=== PATIENT | female | born 1950 | race Caucasian/White ===

== ENCOUNTER → 2017-08-18 14:16 | Outpatient (POV) | payer MEDICARE, SELFPAY ==
[2017-08-18 14:45] VITALS: BP 165/68; PULSE 101; RESP 20; TEMP 36.2; BMI 34.2
[2017-08-18 14:55] VITALS: BP 144/86; PULSE 74; RESP 20; TEMP 36.5; O2SAT 95; BMI 31.7
--- NOTE | 2017-08-18 14:58 | HMH.PAINSOAP ---
[facility] Pain Management SOAP Note Subjective:: This patient is a pleasant 66-year-old white female who we are treating for low back pain with lumbar radiculopathy symptoms. She is currently on [place] 10 mg 4 times a day. She is doing well with her medications. It reduces her pain by at least 50-60%. Her Jp and urine drug screen are all appropriate. Kaspar #[id number]. She is currently being treated for lymphoma at the cancer treatment center in [place]. She is under current treatment with chemotherapy agents. She goes down there every 21 days. We will refill her [place] 10 mg 1 tablet 4 times a day and give HER-2 months worth of prescriptions. Objective:: Alert and oriented ?3 in no acute distress. A normal gait. Motor strength of the lower extremities is 4 out of 5. There is no gross sensory deficit. 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 Lymphoma currently undergoing treatment. Plan:: We will refill her [place] 10 mg 1 tablet 4 times a day. We will give her 2 months worth of prescriptions. We will follow about injections after she completes her treatment regimen for her lymphoma and regains her strength.
--- NOTE | 2017-08-18 15:01 | P.CONS_ITS ---
[facility] Pain Management SOAP Note Subjective:: This patient is a pleasant 66-year-old white female who we are treating for low back pain with lumbar radiculopathy symptoms. She is currently on [place] 10 mg 4 times a day. She is doing well with her medications. It reduces her pain by at least 50-60%. Her Jp and urine drug screen are all appropriate. Kaspar #[id number]. She is currently being treated for lymphoma at the cancer treatment center in [place]. She is under current treatment with chemotherapy agents. She goes down there every 21 days. We will refill her [place] 10 mg 1 tablet 4 times a day and give HER-2 months worth of prescriptions. Objective:: Alert and oriented ?3 in no acute distress. A normal gait. Motor strength of the lower extremities is 4 out of 5. There is no gross sensory deficit. 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 Lymphoma currently undergoing treatment. Plan:: We will refill her [place] 10 mg 1 tablet 4 times a day. We will give her 2 months worth of prescriptions. We will follow about injections after she completes her treatment regimen for her lymphoma and regains her strength.
[2017-08-18 15:22] LABS: Amphetamine/Metha Screen,Urine Negative ng/mL (<1000); Barbiturates Screen,Urine Positive ng/mL (<200); Benzodiazepines Screen,Urine Negative ng/mL (200); Cannabinoid Screen,Urine Negative ng/mL (<50); Cocaine Screen,Urine Negative ng/g (<300); Methadone Screen,Urine Negative ng/mL (<300); Opiate Screen,Urine Positive ng/mL (<300); Phencyclidine Screen,Urine Negative ng/mL (<25)
[2017-08-30 14:11] LABS: Codeine Negative (Cutoff=100); Hydrocodone Positive (.); Hydromorphone Positive (.); Morphine Negative (Cutoff=100)
[2017-08-30 19:08] LABS: Opiates Positive (.)
== END ==
PROVIDERS: Family Provider Nurse Practitioner Family; PCP Nurse Practitioner Family; Visit Provider Anesthesiology
DX: M51.16 Intervertebral disc disorders with radiculopathy, lumbar region (principal); Z79.899 Other long term (current) drug therapy
CPT/HCPCS: 80305; 80361; 99212; G0480

== ENCOUNTER 2017-08-20 21:36 | Inpatient (IN) | payer MEDICARE, SELFPAY ==
[2017-08-20 21:39] VITALS: BMI 35.3
[2017-08-20 21:41] VITALS: BP 134/67; PULSE 108; RESP 20; TEMP 37.6; O2SAT 80; BMI 35.3
--- NOTE | 2017-08-20 21:44 | XR_ITS ---
XR chest portable HISTORY: ITS.REASON: SOA, COUGH ORDERING PHYSICIAN: Daniel Tello MD PATIENT AGE: 67 years COMPARISON: None available FINDINGS: Right hemidiaphragm is elevated. Right subclavian MediPort catheter is in place with the tip in the region of SVC. There are atelectatic changes in the right lung base. Left lung is clear. IMPRESSION: Elevated right hemidiaphragm slightly greater compared to 10/23/2016 with right basilar atelectasis
[2017-08-20 22:21] LABS: Basophils % 0.8 % (0.1-2.0); Eosinophils % 1.5 % (0.1-12.0); Hematocrit 30.2 % (37.0-47.0); Hemoglobin 10.2 g/dL (12.2-16.2); Lymphocytes # 0.1 K/mm3 (0.7-4.5); Lymphocytes % 4.4 K/mm3 (10-50); Mean Corpuscular HGB Conc 33.7 g/dL (31.8-35.4); Mean Corpuscular Hemoglobin 33.8 pg (27.0-31.2); Mean Corpuscular Volume 100.5 fl (81-99); Mean Platelet Volume 8.1 fl (7.4-10.4); Monocytes % 0.6 % (1.7-9.3); Neutrophils # 2.7 K/mm3 (1.8-7.8); Neutrophils % 92.8 % (37.0-80.0); Red Blood Count 3.01 M/mm3 (4.20-5.40); Red Cell Distribution Width 18.7 % (11.5-17.5); White Blood Count 2.9 K/mm3 (4.8-10.8)
[2017-08-20 22:24] LABS: Platelet Count 48 K/mm3 (142-424)
[2017-08-20 22:25] LABS: MANUAL DIFFERENTIAL MANUAL DIFFERENTIAL (MANUAL DIFF)
[2017-08-20 22:37] VITALS: BP 145/50; PULSE 95; RESP 20; O2SAT 89
[2017-08-20 22:37] LABS: Lactic Acid 0.7 mmol/L (0.4-2.0)
--- NOTE | 2017-08-20 22:45 | HMH.EDSOB ---
ED Disposition Clinical Impression: Thrombocytopenia Community acquired pneumonia Qualifiers: Laterality: right Lung location: upper lobe of lung Qualified Code(s): J18.1 - Lobar pneumonia, unspecified organism Disposition: Admitted As Inpatient Condition on Discharge: Good Referrals: Rika Enciso APRN [Primary Care Provider] - - Critical Care Critical Care Time: No Attestation: On 08/20/17, the high probability of a clinically significant, sudden or life threatening deterioration of the following system(s) required my full and direct attention, intervention and personal management. The time I documented below is in addition to time spent performing reported procedures but includes the following listed in this critical care notation. Medical Decision Making Vital Signs: 08/20/17 21:41 08/20/17 22:37 08/20/17 23:02 Temperature 99.6 F Temperature Source Oral Pulse Rate [Right Radial] 108 H 95 H 95 H Respiratory Rate 20 20 20 Blood Pressure [Right Arm] 134/67 145/50 139/76 Blood Pressure Mean [Right Arm] 89 81 97 Blood Pressure Source [Right Arm] Automatic Cuff Automatic Cuff Automatic Cuff Blood Pressure Position [Right Arm] Supine Sitting Sitting 02 Sat by Pulse Oximetry 80 L 89 L 95 Oxygen Delivery Method Room Air Nasal Cannula Nasal Cannula Oxygen Flow Rate (LPM) 2 2 08/20/17 23:47 Temperature 98.6 F Temperature Source Oral Pulse Rate [Right Radial] 92 H Respiratory Rate 22 Blood Pressure [Right Arm] 129/68 Blood Pressure Mean [Right Arm] 88 Blood Pressure Source [Right Arm] Automatic Cuff Blood Pressure Position [Right Arm] Supine 02 Sat by Pulse Oximetry 94 L Oxygen Delivery Method Nasal Cannula Oxygen Flow Rate (LPM) 3 - Lab Data Lab results reviewed: Yes: I reviewed the patient's lab results. Lab Results 08/20/17 22:10: WBC 2.9 L, RBC 3.01 L, Hgb 10.2 L, Hct 30.2 L, MCV 100.5 H, MCH 33.8 H, MCHC 33.7, RDW 18.7 H, Plt Count 48 L*, MPV 8.1, Neut % (Auto) 92.8 H, Lymph % (Auto) 4.4 L, [place] % (Auto) 0.6 L, Eos % (Auto) 1.5, Baso % (Auto) 0.8, Neut # (Auto) 2.7, Lymph # (Auto) 0.1 L, [place] # (Auto) 0.0 L, Eos # (Auto) 0.0, Baso # (Auto) 0.0, Total Counted 50, Neutrophils % (Manual) 94 H, Lymphocytes % (Manual) 4 L, Basophils % (Manual) 2.0 H, Platelet Estimate Marked decrease, Hypochromasia 1+, Poikilocytosis 1+, Anisocytosis 1+ 08/20/17 22:10: Sodium 138, Potassium 4.2, Chloride 101, Carbon Dioxide 36 H, Anion Gap 5.2, BUN 16, Creatinine 0.66, Estimated Creat Clear 81, Estimated GFR 89, Est GFR ( Amer) 108, Glucose 174 H, Calcium 8.5, Total Bilirubin 0.3, AST 24, ALT 44, Alkaline Phosphatase 101, Total Creatine Kinase 86, CK-MB (CK-2) < 0.5, CK-MB (CK-2) Rel Index 0.6, Troponin I < 0.02, Total Protein 5.7 L, Albumin 2.9 L, Globulin 2.8, Albumin/Globulin Ratio 1.0 L 08/20/17 22:10: Lactic Acid 0.7 08/20/17 22:50: Influenza Type A Ag Negative, Influenza Type B Ag Negative Result diagrams: 08/20/17 22:10 08/20/17 22:10 Orders (Tests/Meds): ED MEDICATIONS Generic Name Dose Route Start Last Admin Trade Name Freq PRN Reason Stop Dose Admin Azithromycin 500 mg/ Sodium 250 mls @ 250 mls/hr 08/21/17 00:45 Chloride IV 09/20/17 00:44 Q24H KIMBERLEE Protocol Sodium Chloride 10 ml 08/20/17 23:42 08/20/17 23:44 Rad-Saline Flush 10ml Syringe IV 09/19/17 23:41 10 ml NEEDED PRN Administration Maintain IV Site Discontinued Medications Generic Name Dose Route Start Last Admin Trade Name Freq PRN Reason Stop Dose Admin Sodium Chloride 1,000 mls @ 999 mls/hr 08/20/17 22:15 08/20/17 22:57 Sod Chloride 0.9% 1000ml Bag IV 08/20/17 23:15 999 mls/hr .Q1H1M KIMBERLEE Administration Iopamidol 75 ml 08/20/17 23:42 08/20/17 23:44 [id number]; 75ml Vial IV 08/20/17 23:43 75 ml ONCE ONE Administration Sodium Chloride 50 ml 08/20/17 23:42 08/20/17 23:44 Rad-Ns 50ml Vial IV 08/20/17 23:43 50 ml ONCE ONE Administration ORDERS
[2017-08-20 22:46] LABS: Alanine Aminotransferase 44 U/L (12-78); Albumin Level 2.9 gm/dL (3.4-5.0); Alkaline Phosphatase 101 U/L (46-116); Anion Gap 5.2 mEq/L (5-15); Aspartate Amino Transferase 24 U/L (15-37); Bilirubin,Total 0.3 mg/dL (0.2-1.0); Blood Urea Nitrogen 16 mg/dL (7-18); Calcium 8.5 mg/dL (8.5-10.1); Carbon Dioxide 36 mmol/L (21.0-32.0); Chloride 101 mmol/L (98-107); Creatine Kinase 86 U/L (26-192); Creatinine Clearance Estimated 81 mL/min (0-300); Creatinine,Serum 0.66 mg/dL (0.55-1.02); Estimated Glomerular Filt Rate 89 ml/min (>60); GFR (African American) 108 ML/MIN (>60); Globulin 2.8 gm/dl (1.3-3.2); Glucose 174 mg/dL (74-106); Potassium 4.2 mmoL/L (3.5-5.1); Sodium 138 mmol/L (136-145); Total Protein,Serum 5.7 gm/dL (6.4-8.2); Troponin I < 0.02 ng/ml (0.00-0.06)
[2017-08-20 22:47] LABS: Anisocytosis 1+; Lymphocytes % 4 % (10-50); Neutrophils % 94 % (42-76); Platelet Estimate Marked Decrease; Total Cells Counted 50
[2017-08-20 22:48] LABS: Hypochromasia 1+; Poikilocytosis 1+
[2017-08-20 22:49] LABS: CKMB Relative Index 0.6 U/L (0-4.0); Creatine Kinase MB < 0.5 mg/ml (0.0-3.6)
--- NOTE | 2017-08-20 22:59 | CT_ITS ---
CT angio chest HISTORY: Shortness of breath, shortness of air ITS.REASON: SOA ORDERING PHYSICIAN: Daniel Tello MD PATIENT AGE: 67 years TECHNIQUE: Axial images obtained following the administration of 75 mL of Isovue 370 . Sagittal, and coronal reformatted images are also generated and reviewed. COMPARISON: 03/04/2017 FINDINGS: There is generalized motion artifact which does somewhat obscure fine detail PULMONARY ARTERIES:No pulmonary embolus evident. AORTA:No acute finding. No thoracic aortic aneurysm or dissection evident LUNGS:Atelectasis lower right middle lobe adjacent to the elevated hemidiaphragm. Patchy centrilobular opacities in the central and lateral aspect of the right upper lobe. Atelectasis or infiltrate in the left lower lobe and lingula. PLEURAL SPACES:No significant effusion. No evidence of pneumothorax. HEART:Unremarkable. Normal heart size. No significant pericardial effusion. MEDIASTINAL AND HILAR STRUCTURES:Elevated right hemidiaphragm with right basilar atelectasis. Somewhat worse on today's study than when compared to the previous exam. Mediport catheter is present via right subclavian approach BONY STRUCTURES:No acute bony abnormalities apparent LYMPH NODES:No enlarged lymph nodes evident UPPER ABDOMEN:Diffuse hepatic steatosis IMPRESSION: 1. No evidence of pulmonary embolus or aortic aneurysm. 2. Elevated right hemidiaphragm with right basilar atelectasis. This is slightly worse when compared to the previous exam. 3. Scattered airspace disease which may be due to atypical infectious process/pneumonia along with atelectatic changes
[2017-08-20 23:02] VITALS: BP 139/76; PULSE 95; RESP 20; O2SAT 95
--- NOTE | 2017-08-20 23:28 | PC.NURSE ---
PT BACK FROM CT AT THIS TIME
[2017-08-20 23:47] VITALS: BP 129/68; PULSE 92; RESP 22; TEMP 37; O2SAT 94
[2017-08-21] VITALS (14 sets, daily range): BP systolic 123–166; BP diastolic 56–77; PULSE 85–104; RESP 18–31; TEMP 36.1–37.7; O2SAT 82–94; BMI 34.2
--- NOTE | 2017-08-21 00:05 | PC.NURSE ---
ON PHONE WITH ALMA
--- NOTE | 2017-08-21 00:23 | PC.NURSE ---
ON THE PHONE WITH AT THIS TIME
--- NOTE | 2017-08-21 00:56 | PC.NURSE ---
REPORT CALLED TO RADHA
--- NOTE | 2017-08-21 05:06 | PC.NURSE ---
PT ON 50% VENTI MASK TO KEEP SATS ABOVE 90 AT THIS TIME, TOLERATING WELL. ATTEMOTED TO PUT PT ON HOME CPAP MACHINE, THIEN DROPPED TO 77, ATTEMPTED TO PUT PT ON 3L NC, COULD NOT TOLERATE. PER RT THERARPY PT PUT ON 50% VENTI MASK.
--- NOTE | 2017-08-21 05:13 | PC.NURSE ---
nurse was aware of O2. Respiratory came and put venturi mask on her
--- NOTE | 2017-08-21 06:31 | PC.NURSE ---
Upon rounds pt had venti mask off and reapplied home CPAP machine, pt O2 saturation 65, pt educated on importance of venti mask and to not use home CPAP at this time. When venti mask reapplied pt O2 sats went up to 91. Lung sounds reveal wheezes and rhonchi with fine crackles in L base. Port noted to RU chest, patent with good blood return. Pt is reverse isolation r/t WBC being 2.9. Pt has rested well since admission with no verbal complaints. A&Ox3. No acute distress noted. Will continue to monitor.
[2017-08-21 06:58] LABS: Basophils % 0.8 % (0.1-2.0); Eosinophils # 0.1 K/mm3 (0.0-0.4); Eosinophils % 2.2 % (0.1-12.0); Lymphocytes # 0.2 K/mm3 (0.7-4.5); Lymphocytes % 7.5 K/mm3 (10-50); Mean Corpuscular HGB Conc 33.3 g/dL (31.8-35.4); Mean Corpuscular Hemoglobin 33.9 pg (27.0-31.2); Mean Corpuscular Volume 101.7 fl (81-99); Mean Platelet Volume 7.5 fl (7.4-10.4); Monocytes % 1.4 % (1.7-9.3); Neutrophils # 1.9 K/mm3 (1.8-7.8); Neutrophils % 88.1 % (37.0-80.0); Red Blood Count 2.86 M/mm3 (4.20-5.40); Red Cell Distribution Width 18.7 % (11.5-17.5); White Blood Count 2.1 K/mm3 (4.8-10.8)
[2017-08-21 07:02] LABS: Anion Gap 2.7 mEq/L (5-15); Blood Urea Nitrogen 12 mg/dL (7-18); Carbon Dioxide 39 mmol/L (21.0-32.0); Chloride 101 mmol/L (98-107); Creatinine Clearance Estimated 80 mL/min (0-300); Creatinine,Serum 0.67 mg/dL (0.55-1.02); Estimated Glomerular Filt Rate 88 ml/min (>60); GFR (African American) 106 ML/MIN (>60); Glucose 169 mg/dL (74-106); Potassium 4.7 mmoL/L (3.5-5.1); Sodium 138 mmol/L (136-145)
--- NOTE | 2017-08-21 07:27 | P.CONPHA_ITS ---
[facility] Pharmacy VTE Monitoring - Patient Demographics Admission date: 08/21/17 Report Date: 08/21/17 Time: 07:27 Allergies/Adverse Reactions: Patient Allergies cefdinir [From OMNICEF] Allergy (Intermediate, Verified 08/21/17 00:34) I-RASH floxacillin [FLOXACILLIN] Allergy (Intermediate, Verified 08/21/17 00:34) I-RASH penicillin G [PENICILLIN G] Allergy (Intermediate, Verified 08/21/17 00:34) I-RASH Sulfa (Sulfonamide Antibiotics) [SULFA (SULFONAMIDE ANTIBIOTICS)] Allergy ( Intermediate, Verified 08/21/17 00:34) RED/RASH acetylcysteine [ACETYLCYSTEINE] Allergy (Unknown, Verified 08/21/17 00:34) UNKNOWN fluconazole [From DIFLUCAN] Allergy (Unknown, Verified 08/21/17 00:34) UNKNOWN NOT SURE IF ALLERGIC lubiprostone [From AMITIZA] Allergy (Unknown, Verified 08/21/17 00:34) UNKOWN morphine [MORPHINE] Allergy (Unknown, Verified 08/21/17 00:34) UNKNOWN topiramate [From TOPAMAX] Allergy (Unknown, Verified 08/21/17 00:34) UNKNOWN acetaminophen [From Staflex] Allergy (Verified 08/21/17 00:34) phenyltoloxamine [From Staflex] Allergy (Verified 08/21/17 00:34) metoclopramide [From REGLAN] Adverse Reaction (Mild, Verified 08/21/17 00:34) NA-NAUSEA/VOMITING midazolam [MIDAZOLAM] Adverse Reaction (Mild, Verified 08/21/17 00:34) NA-NAUSEA/VOMITING Height: 1.65 m Weight: 93.157 kg Patient Problems: Current Active Problems Community acquired pneumonia (Acute) Thrombocytopenia (Acute) - VTE Risk Labs: VTE Related Lab Results Hgb 10.2 g/dL (12.2-16.2) L 08/20/17 22:10 Hct 30.2 % (37.0-47.0) L 08/20/17 22:10 Plt Count 48 K/mm3 (142-424) L* 08/20/17 22:10 BUN 12 mg/dL (7-18) 08/21/17 06:40 Creatinine 0.67 mg/dL (0.55-1.02) 08/21/17 06:40 Estimated Creat Clear 80 mL/min (0-300) 08/21/17 06:40 Was VTE Risk Assessment Performed: Yes VTE Score: 12 VTE Risk Level: Moderate Risk - Prophylaxis VTE Prophylaxis Ordered?: Yes Types of VTE Prophylaxis: TEDS Knee High Location of Applied Device: Bilateral Lower Extremeties - VTE Diagnosis Confirmed Treatment or plan recommended: Continue Current Treatment
--- NOTE | 2017-08-21 07:30 | PC.NURSE ---
Addendum entered by Peri Talamantes RN 08/21/17 07:33: correction report given to darrell lacy Original Note: report given to atul trejo
[2017-08-21 07:40] LABS: Hematocrit 29.1 % (37.0-47.0); Hemoglobin 9.8 g/dL (12.2-16.2)
--- NOTE | 2017-08-21 08:27 | HMH.HP ---
*Admission Date: 08/21/17 *Chief complaint: SOA, cough *History of present illness: Mr. Fowler is a 67-year-old female with a history of follicular lymphoma, asthma, paralyzed middle lobe, and elevated hemidiaphragm, IBS, and a sleep disorder. She states she normally uses oxygen at 2 L/min at home. She states she had chemo last Friday and began feeling poorly after this. She has been nauseated and coughing and has also had a fever. She began getting more short of breath and was brought to the emergency room. He was felt to have a pneumonia and was admitted. She was placed on a Ventimask. She currently is treated by an oncologist at [facility] in [place], however she is unsure of his name. We have called her and he states she has been to [facility] and has seen Samuel and they were not satisfied with care, so they went to [place]. [facility] History Medical History: Reports:: Asthma, Cancer (Follicular Lymphoma), Hyperlipidemia, Hypertension Denies:: Diabetes Mellitus Type 1, Diabetes Mellitus Type 2, MRSA Other Medical History: Reports: Chemotherapy Laterality Cases: Right: Total Knee Replacement Other Surgeries: Yes: Cancer Surgery, Colonoscopy, EGD, Hysterectomy-Partial, Plastic Surgery Amputation: No Fractures: Yes - *Social History Educational Level: Completed GED/General Educational Development Smoking Status: Former smoker Tobacco Type: cigarettes #Yrs smoked (if former smoker): 20 Alcohol Intake: never Occupational Status: disabled Housing: house Household Members: spouse - Psychiatric History Expresses thoughts of harming self/others: None Suicide Plan Description: No Plan *Family Hx:: Asthma, Cancer, Coronary Artery Disease, Heart Attack, Hyperlipidemia, Hypertension, Kidney Disease, Stroke, Thyroid Disorder Review of Systems - Constitutional Reports chills, Reports fever(s), Reports weakness - Eyes Denies blurry vision, Denies double vision - ENT Reports dry mouth, Denies nasal congestion, Denies sore throat - *Cardiovascular Denies chest pain - *Respiratory Reports cough, Reports shortness of breath - *Gastrointestinal Reports loose stools, Reports nausea, Denies abdominal pain, Denies vomiting - *Genitourinary Denies difficulty urinating, Denies painful urination - *Musculoskeletal Reports joint pain, Reports muscle weakness - *Neurologic Reports dizziness, Reports headache(s), Denies seizure-like activity Meds Home Medications Medication Instructions Recorded Confirmed Type Cyclophosphamide [Cytoxan 1gm vial] 1 gm IV ONCE 08/18/17 08/20/17 History Doxorubicin HCl 0 mg IV DIRECTED 08/18/17 08/20/17 History Ondansetron [Zofran 8mg ODT] 8 mg PO NEEDED PRN 08/18/17 08/20/17 History Pegfilgrastim [Neulasta 6mg/0.6mL 0 mg IV NEEDED PRN 08/18/17 08/20/17 History Syringe] Prochlorperazine Maleate 10 mg PO Q6H 08/18/17 08/20/17 History [Compazine 10mg tablet] Rituximab [Rituxan 100mg/10mL vial] 0 mg IV NEEDED PRN 08/18/17 08/20/17 History Vincristine Sulfate [vinCRISTINE 1 mg IV NEEDED PRN 08/18/17 08/20/17 History 1mg/mL vial] Amitriptyline HCl [Elavil 50mg 50 mg PO DAILY 08/20/17 08/20/17 History tablet] Celecoxib [Celebrex] 200 mg PO DAILY 08/20/17 08/20/17 History Dicyclomine HCl [Bentyl] 10 mg PO DAILY 08/20/17 08/20/17 History Duloxetine HCl [Cymbalta] 60 mg PO DAILY 08/20/17 08/20/17 History Fluticasone/Salmeterol [Advair Hfa 12 gm IH DAILY 08/20/17 08/20/17 History 230-21 Mcg Inhaler] Gabapentin [Neurontin 600mg 600 mg PO TID 08/20/17 08/20/17 History tablet] Hydrocodone/Acetaminophen [[place] 1 each PO NEEDED PRN 08/20/17 08/20/17 History 10-325 Tablet] Levothyroxine Sodium [Synthroid 125 mcg PO DAILY 08/20/17 08/20/17 History 125mcg (0.125mg) tablet] Montelukast Sodium [Singulair 10mg 10 mg PO PM 08/20/17 08/20/17 History tablet] Omeprazole [Omeprazole 20mg 20 mg PO DAILY 08/20/17 08/20/17 History Capsule] Ro
--- NOTE | 2017-08-21 08:30 | P.HP_ITS ---
*Admission Date: 08/21/17 *Chief complaint: SOA, cough *History of present illness: Mr. Fowler is a 67-year-old female with a history of follicular lymphoma, asthma , paralyzed middle lobe, and elevated hemidiaphragm, IBS, and a sleep disorder. She states she normally uses oxygen at 2 L/min at home. She states she had chemo last Friday and began feeling poorly after this. She has been nauseated and coughing and has also had a fever. She began getting more short of breath and was brought to the emergency room. He was felt to have a pneumonia and was admitted. She was placed on a Ventimask. She currently is treated by an oncologist at [facility] in [place], however she is unsure of his name. We have called her and he states she has been to [facility] and has seen Samuel and they were not satisfied with care, so they went to [place]. [facility] History Medical History: Reports:: Asthma, Cancer (Follicular Lymphoma), Hyperlipidemia , Hypertension Denies:: Diabetes Mellitus Type 1, Diabetes Mellitus Type 2, MRSA Other Medical History: Reports: Chemotherapy Laterality Cases: Right: Total Knee Replacement Other Surgeries: Yes: Cancer Surgery, Colonoscopy, EGD, Hysterectomy-Partial, Plastic Surgery Amputation: No Fractures: Yes - *Social History Educational Level: Completed GED/General Educational Development Smoking Status: Former smoker Tobacco Type: cigarettes #Yrs smoked (if former smoker): 20 Alcohol Intake: never Occupational Status: disabled Housing: house Household Members: spouse - Psychiatric History Expresses thoughts of harming self/others: None Suicide Plan Description: No Plan *Family Hx:: Asthma, Cancer, Coronary Artery Disease, Heart Attack, Hyperlipidemia, Hypertension, Kidney Disease, Stroke, Thyroid Disorder Review of Systems - Constitutional Reports chills, Reports fever(s), Reports weakness - Eyes Denies blurry vision, Denies double vision - ENT Reports dry mouth, Denies nasal congestion, Denies sore throat - *Cardiovascular Denies chest pain - *Respiratory Reports cough, Reports shortness of breath - *Gastrointestinal Reports loose stools, Reports nausea, Denies abdominal pain, Denies vomiting - *Genitourinary Denies difficulty urinating, Denies painful urination - *Musculoskeletal Reports joint pain, Reports muscle weakness - *Neurologic Reports dizziness, Reports headache(s), Denies seizure-like activity Meds Home Medications Medication Instructions Recorded Confirmed Type Cyclophosphamide [Cytoxan 1gm vial] 1 gm IV ONCE 08/18/17 08/20/17 History Doxorubicin HCl 0 mg IV DIRECTED 08/18/17 08/20/17 History Ondansetron [Zofran 8mg ODT] 8 mg PO NEEDED PRN 08/18/17 08/20/17 History Pegfilgrastim [Neulasta 6mg/0.6mL 0 mg IV NEEDED PRN 08/18/17 08/20/17 History Syringe] Prochlorperazine Maleate 10 mg PO Q6H 08/18/17 08/20/17 History [Compazine 10mg tablet] Rituximab [Rituxan 100mg/10mL vial] 0 mg IV NEEDED PRN 08/18/17 08/20/17 History Vincristine Sulfate [vinCRISTINE 1 mg IV NEEDED PRN 08/18/17 08/20/17 History 1mg/mL vial] Amitriptyline HCl [Elavil 50mg 50 mg PO DAILY 08/20/17 08/20/17 History tablet] Celecoxib [Celebrex] 200 mg PO DAILY 08/20/17 08/20/17 History Dicyclomine HCl [Bentyl] 10 mg PO DAILY 08/20/17 08/20/17 History Duloxetine HCl [Cymbalta] 60 mg PO DAILY 08/20/17 08/20/17 History Fluticasone/Salmeterol [Advair Hfa 12 gm IH DAILY 08/20/17 08/20/17 History 23
[2017-08-21 09:34] LABS: ABG Base Excess 7.2 mmol/L (-2.4-2.3); ABG HCO3 31.5 mmhg (22.0-26.0); ABG Oxygen Saturation 96 % (90-100); ABG PCO2 48.7 mmhg (35.0-45.0); ABG PH 7.43 mmol/L (7.35-7.45); ABG PO2 90.7 mmhg (80-100)
[2017-08-21 09:35] LABS: Allen's Test ACCEPTABLE; Oxygen 50 %; Source R RADIAL
[2017-08-21 09:37] LABS: Platelet Count 36 K/mm3 (142-424)
[2017-08-21 09:38] LABS: MANUAL DIFFERENTIAL MANUAL DIFFERENTIAL (MANUAL DIFF)
[2017-08-21 09:43] LABS: Adenovirus,PCR Not Detected (NotDetected); Bordetella Pertussis Not Detected (NotDetected); Chlamydophila Pneumoniae, PCR Not Detected (NotDetected); Coronavirus 229E Not Detected (NotDetected); Coronavirus NL63 Not Detected (NotDetected); Coronavirus OC43 Not Detected (NotDetected); Coronovirus HKU1,PCR Not Detected (NotDetected); Human Metapneumovirus Not Detected (NotDetected); Influenza A, PCR Not Detected (NotDetected); Influenza AH3,PCR Not Detected (NotDetected); Influenza B, PCR Not Detected (NotDetected); Mycoplasma Pneumoniae, PCR Not Detected (NotDected); Parainfluenza 1, PCR Not Detected (NotDetected); Parainfluenza 2, PCR Not Detected (NotDetected); Parainfluenza 3, PCR Not Detected (NotDetected); Parainfluenza 4, PCR Not Detected (NotDetected); Respiratory Syncytial Virus Not Detected (NotDetected); Rhinovirus/Enterovirus Not Detected (NotDetected)
[2017-08-21 09:45] LABS: Eosinophils % 4 % (0-3); Lymphocytes % 20 % (10-50); Neutrophils % 74 % (42-76); Platelet Estimate Marked Decrease; Total Cells Counted 50
[2017-08-21 09:46] LABS: RBC Morphology Normal
[2017-08-21 11:06] LABS: Influenza AH1, PCR Not Detected (NotDetected)
[2017-08-21 13:50] LABS: Influenza AH1, 2009 Detected (NotDetected)
--- NOTE | 2017-08-21 17:43 | PC.NURSE ---
PATIENT WAS HAVING TROUBLE BREATHING THIS MORNING AND WAS STATING IN THE 50'S. PA AT BEDSIDE , CALLED RESPIRATORY AND ORDERED A BI-PAP FOR PATIENT . PATIENT HAS BEEN ON IT ALL DAY EXCEPT FOR MEAL TIME. PATIENT TESTED POSITIVE FOR THE FLU TODAY, AND IS UNDER DROPLET PRECAUTIONS. IS AT BEDSIDE.VITAL SIGNS HAVE BEEN STABLE, LUNG SOUNDS CONTINUE TO HAVE RHONCHI AND WHEEZES. PATIENT DENIES ANY NEEDS AT THIS TIME, WILL CONTINUE TO MONITOR.
--- NOTE | 2017-08-21 21:10 | PC.NURSE ---
BSC was full when we went in, don't know how many voids actually were in it
[2017-08-22] VITALS (21 sets, daily range): BP systolic 119–153; BP diastolic 54–94; PULSE 70–95; RESP 18–27; TEMP 36.8–37.6; O2SAT 86–99
--- NOTE | 2017-08-22 08:28 | HMH.ACPN2 ---
Internal Medicine - PN: Subj *Date: 08/22/17 *Time: 08:28 Interval history: Patient states she is feeling better today. She is still on BiPAP. She said she hurts all over but this is her normal pain. Shortness of breath is slightly better. She is still coughing. She was able to rest last night. Exam Vital signs and Labs for Last 24 Hours: Temp Pulse Resp BP Pulse Ox 99.1 F 82 21 119/58 92 L 08/22/17 07:11 08/22/17 07:11 08/22/17 07:11 08/22/17 07:11 08/22/17 07:11 Laboratory Results - last 24 hr 08/21/17 06:40: WBC 2.1 L D, RBC 2.86 L, Hgb 9.8 L, Hct 29.1 L, MCV 101.7 H, MCH 33.9 H, MCHC 33.3, RDW 18.7 H, Plt Count 36 L*, MPV 7.5, Neut % (Auto) 88.1 H, Lymph % (Auto) 7.5 L, [place] % (Auto) 1.4 L, Eos % (Auto) 2.2, Baso % (Auto) 0.8, Neut # (Auto) 1.9, Lymph # (Auto) 0.2 L, [place] # (Auto) 0.0 L, Eos # (Auto) 0.1, Baso # (Auto) 0.0, Total Counted 50, Neutrophils % (Manual) 74, Band Neutrophils % 2.0, Lymphocytes % (Manual) 20, Eosinophils % (Manual) 4 H, Platelet Estimate Marked decrease, RBC Morphology Normal 08/21/17 09:32: Specimen Source R radial, O2 % 50, ABG pH 7.43, ABG pCO2 48.7 H, ABG pO2 90.7, ABG HCO3 31.5 H, ABG Total CO2 33.0 H, ABG O2 Saturation 96, ABG Base Excess 7.2 H, Jeremias Test Acceptable, Vent Rate 14/6 rr 18 08/21/17 09:40: Chlamy pneumoniae PCR Not detected, Adenovirus (PCR) Not detected, B.parapertussis DNA PCR Not detected, Coronavirus OC43 (PCR) Not detected, Coronavirus HKU1 (PCR) Not detected, Coronavirus 229E (PCR) Not detected, Coronavirus NL63 (PCR) Not detected, Human Metapneumovir PCR Not detected, Influenza A (H1) PCR Not detected, Influ A (H1N1/09) PCR Detected A, Influenza A (H3) PCR Not detected, Influenza Type A (PCR) Not detected, Influenza Type B (PCR) Not detected, M. pneumoniae (PCR) Not detected, Parainfluenza 1 (PCR) Not detected, Parainfluenza 2 (PCR) Not detected, Parainfluenza 3 (PCR) Not detected, Parainfluenza 4 (PCR) Not detected, RSV (PCR) Not detected, Entero/Rhino (PCR) Not detected I & O for Last 24 hours: Intake & Output 08/19/17 08/20/17 08/21/17 08/22/17 11:59 11:59 11:59 11:59 Intake Total 827 / 827 1082 / 1082 Output Total 700 / 700 1800 / 1800 Balance 127 / 127 -718 / -718 Weight 205 lb 6 oz - Constitutional no acute distress (Looks better today) - *Routine Respiratory Exam Present: wheezes. Absent: rales - *Routine Cardiovascular Exam Present: RRR - *Routine Abdominal Exam Present: soft, normoactive bowel sounds. Absent: tenderness - *Routine Extremities Exam Absent: edema Assessment and Plan (1) Influenza Current visit: Yes Status: Acute Category: Medical Code(s): J11.1 - Influenza due to unidentified influenza virus with other respiratory manifestations (2) Thrombocytopenia Current visit: Yes Status: Acute Category: Medical Code(s): D69.6 - Thrombocytopenia, unspecified (3) Hypoxia Current visit: Yes Status: Acute Category: Medical Code(s): R09.02 - Hypoxemia (4) Fever Current visit: Yes Status: Acute Category: Medical Code(s): R50.9 - Fever, unspecified (5) Follicular lymphoma Current visit: Yes Status: Chronic Category: Medical Code(s): C82.90 - Follicular lymphoma, unspecified, unspecified site (6) Asthma Current visit: Yes Status: Chronic Category: Medical Code(s): J45.909 - Unspecified asthma, uncomplicated - Assessment and plan all Dx Assessment and Plan for all problems:: Patient has been started on Tamiflu. Will try to wean BiPAP today. Will discuss further care with Dr. santana.
--- NOTE | 2017-08-22 08:31 | P.PN_ITS ---
Internal Medicine - PN: Subj *Date: 08/22/17 *Time: 08:28 Interval history: Patient states she is feeling better today. She is still on BiPAP. She said she hurts all over but this is her normal pain. Shortness of breath is slightly better. She is still coughing. She was able to rest last night. Exam Vital signs and Labs for Last 24 Hours: Temp Pulse Resp BP Pulse Ox 99.1 F 82 21 119/58 92 L 08/22/17 07:11 08/22/17 07:11 08/22/17 07:11 08/22/17 07:11 08/22/17 07:11 Laboratory Results - last 24 hr 08/21/17 06:40: WBC 2.1 L D, RBC 2.86 L, Hgb 9.8 L, Hct 29.1 L, MCV 101.7 H, MCH 33.9 H, MCHC 33.3, RDW 18.7 H, Plt Count 36 L*, MPV 7.5, Neut % (Auto) 88.1 H, Lymph % (Auto) 7.5 L, [place] % (Auto) 1.4 L, Eos % (Auto) 2.2, Baso % (Auto) 0.8, Neut # (Auto) 1.9, Lymph # (Auto) 0.2 L, [place] # (Auto) 0.0 L, Eos # (Auto) 0.1, Baso # (Auto) 0.0, Total Counted 50, Neutrophils % (Manual) 74, Band Neutrophils % 2.0, Lymphocytes % (Manual) 20, Eosinophils % (Manual) 4 H, Platelet Estimate Marked decrease, RBC Morphology Normal 08/21/17 09:32: Specimen Source R radial, O2 % 50, ABG pH 7.43, ABG pCO2 48.7 H , ABG pO2 90.7, ABG HCO3 31.5 H, ABG Total CO2 33.0 H, ABG O2 Saturation 96, ABG Base Excess 7.2 H, Jeremias Test Acceptable, Vent Rate 14/6 rr 18 08/21/17 09:40: Chlamy pneumoniae PCR Not detected, Adenovirus (PCR) Not detected, B.parapertussis DNA PCR Not detected, Coronavirus OC43 (PCR) Not detected, Coronavirus HKU1 (PCR) Not detected, Coronavirus 229E (PCR) Not detected, Coronavirus NL63 (PCR) Not detected, Human Metapneumovir PCR Not detected, Influenza A (H1) PCR Not detected, Influ A (H1N1/09) PCR Detected A, Influenza A (H3) PCR Not detected, Influenza Type A (PCR) Not detected, Influenza Type B (PCR) Not detected, M. pneumoniae (PCR) Not detected, Parainfluenza 1 (PCR) Not detected, Parainfluenza 2 (PCR) Not detected, Parainfluenza 3 (PCR) Not detected, Parainfluenza 4 (PCR) Not detected, RSV (PCR ) Not detected, Entero/Rhino (PCR) Not detected I & O for Last 24 hours: Intake & Output 08/19/17 08/20/17 08/21/17 08/22/17 11:59 11:59 11:59 11:59 Intake Total 827 / 827 1082 / 1082 Output Total 700 / 700 1800 / 1800 Balance 127 / 127 -718 / -718 Weight 205 lb 6 oz - Constitutional no acute distress (Looks better today) - *Routine Respiratory Exam Present: wheezes. Absent: rales - *Routine Cardiovascular Exam Present: RRR - *Routine Abdominal Exam Present: soft, normoactive bowel sounds. Absent: tenderness - *Routine Extremities Exam Absent: edema Assessment and Plan (1) Influenza Current visit: Yes Status: Acute Category: Medical Code(s): J11.1 - Influenza due to unidentified influenza virus with other respiratory manifestations (2) Thrombocytopenia Current visit: Yes Status: Acute Category: Medical Code(s): D69.6 - Thrombocytopenia, unspecified (3) Hypoxia Current visit: Yes Status: Acute Category: Medical Code(s): R09.02 - Hypoxemia (4) Fever Current visit: Yes Status: Acute Category: Medical Code(s): R50.9 - Fever , unspecified (5) Follicular lymphoma Current visit: Yes Status: Chronic Category: Medical Code(s): C82.90 - Follicular lymphoma, unspecified, unspecified site (6) Asthma Current visit: Yes Status: Chronic Category: Medical Code(s): J45.909 - Unspecified asthma, uncomplicated - Assessment and plan all Dx Assessment and Plan for all problems:: Patient has been sta
--- NOTE | 2017-08-22 08:57 | PC.NURSE ---
Pt had a good night. Required pain medication only one time with success with intermittent sleep thereafter. Nothing acute to report, remains attentive at bs. Bipap remained in place with vital signs wnl. Pt remained safe and stable during my care. Report given to Serene Foster RN to her satisfaction.
--- NOTE | 2017-08-22 19:36 | PC.NURSE ---
pt has tolerated being off of the bipap since 1230. Dr Tello was notified that the pt is on 4 lpm. per md he wishes to keep her sats around 90. lung sounds are clear with occassional rhonchi in kandi bases. bowel sounds are active. pt is at bedside and assists pt to bsc. nad noted will continue to monitor.
--- NOTE | 2017-08-22 23:55 | PC.NURSE ---
nurse notifiedof pts temp
[2017-08-23] VITALS (16 sets, daily range): BP systolic 100–168; BP diastolic 51–84; PULSE 78–100; RESP 16–28; TEMP 36.2–37; O2SAT 88–98
--- NOTE | 2017-08-23 02:53 | PC.NURSE ---
PT HAS BEEN RESTING IN BED T/O NIGHT. SHE CONTINUES ON THE BIPAP. LUNG SOUNDS WITH RHONCHI T/O. SHE RECEIVED SCHEDULED PAIN MEDICATIONS. FAMILY AT BEDSIDE. NSR ON TELEMETRY. VSS.
--- NOTE | 2017-08-23 09:19 | P.PN_ITS ---
Internal Medicine - PN: Subj *Date: 08/23/17 *Time: 09:17 Interval history: She is definitely better. She is maintained on nasal oxygen at present. Her sats are adequate. He has decreased breath sounds with some scattered rhonchi on auscultation. She has some pedal edema. Lab work is noted. Exam Vital signs and Labs for Last 24 Hours: Temp Pulse Resp BP Pulse Ox 97.5 F L 90 22 143/84 89 L 08/23/17 08:00 08/23/17 08:00 08/23/17 08:00 08/23/17 08:00 08/23/17 08:00 I & O for Last 24 hours: Intake & Output 08/20/17 08/21/17 08/22/17 08/23/17 11:59 11:59 11:59 11:59 Intake Total 827 / 827 3261 / 3261 1620 / 1620 Output Total 700 / 700 2800 / 2800 2900 / 2900 Balance 127 / 127 461 / 461 -1280 / -1280 Weight 205 lb 6 oz 205 lb 2 oz - *Routine Respiratory Exam Present: decreased breath sounds, rhonchi - *Routine Cardiovascular Exam Present: RRR - *Routine Abdominal Exam Present: soft. Absent: tenderness - *Routine Extremities Exam Present: edema (2+ pedal) Assessment and Plan (1) Influenza Current visit: Yes Status: Acute Category: Medical Code(s): J11.1 - Influenza due to unidentified influenza virus with other respiratory manifestations (2) Thrombocytopenia Current visit: Yes Status: Acute Category: Medical Code(s): D69.6 - Thrombocytopenia, unspecified (3) Hypoxia Current visit: Yes Status: Acute Category: Medical Code(s): R09.02 - Hypoxemia (4) Fever Current visit: Yes Status: Acute Category: Medical Code(s): R50.9 - Fever , unspecified (5) Follicular lymphoma Current visit: Yes Status: Chronic Category: Medical Code(s): C82.90 - Follicular lymphoma, unspecified, unspecified site (6) Asthma Current visit: Yes Status: Chronic Category: Medical Code(s): J45.909 - Unspecified asthma, uncomplicated - Assessment and plan all Dx Assessment and Plan for all problems:: Continue present care.
--- NOTE | 2017-08-23 19:20 | PC.NURSE ---
late entry: dr santana notified primary rn this am that he wished for pt to have devin hose in place. pt had previously worn the devin hose, but stated that they were uncomfortable. pt was informed this am that dr santana wanted her to wear them. she stated that she would attempt to wear them but would take them off if they bothered her. the pt wore the devin hose until appr 1600. pt stated at the time of this pt round that she did not wish to wear them at this time.
--- NOTE | 2017-08-23 20:07 | PC.NURSE ---
pt has tolerated nc @ 4 liters this shift. lungs are clear but slightly diminished, bowel sounds are hypo. nad. pt has been up to the bsc numerous times this shift. pt has trace edema in ble. will continue to monitor.
[2017-08-24] VITALS (12 sets, daily range): BP systolic 138–158; BP diastolic 67–76; PULSE 70–96; RESP 16–22; TEMP 36.4–36.9; O2SAT 87–95
--- NOTE | 2017-08-24 03:31 | PC.NURSE ---
PT IS A&OX3. SHE REQUESTED TO NOT HAVE HER TEDS ON AT NIGHT. EDEMA IN BLE THAT IS WORSE ON THE LEFT FOOT. NSR ON TELEMETRY. SHE REPORTED A HEADACHE. SHE CONTINUES ON 4LPM N/C. SHE HAS TRANSFERRED TO HER BSC WITH SUPERVISION ONLY. SHE HAS RESTED T/O THE NIGHT. VSS.
--- NOTE | 2017-08-24 09:47 | XR_ITS ---
XR chest 2V Ordering Physician: Daniel Tello MD Patient Age: 67 years: Female HISTORY: ITS.REASON: Respiratory infection Pneumonia. Respiratory infection TECHNIQUE: AP lateral CXR COMPARISON :2 view chest October 2016; as well as recent PCXR & CT chest 08/20/2017 FINDINGS Right chest: . Prominent elevation right hemidiaphragm again noted. ( In part due to the markedly enlarged liver measuring over 24 cm height on recent CT)Atelectasis right lung base Right lung demonstrates Diffuse increase interstitial pattern throughout the right lung suggesting progression of a diffuse interstitial infiltrate. Also accentuation markings right midlung and right base which in part reflects the higher contrast distal technique.. On further review i believe there is also been progression patchy infiltrate seen towards the right lower lobe on density here at right lung base projected over the elevated right hemidiaphragm Left chest Progression of findings.. Increased markings at the laterally at the periphery the left lung base. Some these follow the septal lines and possibly could reflect interstitial edema. I do not see discrete cephalization to support pulmonary edema question additional left lower lobe Mild increased prominence of central markings which can re that likely slight progression of left lower lobe infiltrate retrocardiac region as well No pleural effusions no pneumothorax. Heart is upper normal in size. Mediastinal structures unremarkable. There may be slight accentuation of air bronchograms cyst at the left hilum. The lateral film also supports slight progression of infiltrate at the lower lobes as well as at the upper lobe anteriorly Port-A-Cath enters on right with tip at SVC. Stable position IMPRESSION--------- Radiographic Progression of findings bilaterally. Most notable on right. ] Right lung progressive diffuse interstitial infiltrate the right midlung & right lung base,;, with progressive patchy infiltrate and consolidation seen at the posterior right lower lobe . Left lung with slight progression of infiltrates motion most most evident at the left lung base. Most notable at the periphery. Some these changes could reflect It could be mild pulmonary edema and rather than interstitial infiltrate . May warrant correlation with BNP
--- NOTE | 2017-08-24 09:55 | P.PN_ITS ---
Internal Medicine - PN: Subj *Date: 08/24/17 *Time: 09:52 Interval history: Clinically she has stabilized. Today we will recheck CBC CMP and chest x-ray. Disposition will be a problem since she has no doctor in the area and her cancer is being managed in [facility]. Exam Vital signs and Labs for Last 24 Hours: Temp Pulse Resp BP Pulse Ox 97.7 F 96 H 22 149/67 88 L 08/24/17 08:00 08/24/17 08:00 08/24/17 08:00 08/24/17 08:00 08/24/17 08:45 I & O for Last 24 hours: Intake & Output 08/21/17 08/22/17 08/23/17 08/24/17 11:59 11:59 11:59 11:59 Intake Total 827 / 827 3261 / 3261 1620 / 1620 1858 / 1858 Output Total 700 / 700 2800 / 2800 4000 / 4000 1400 / 1400 Balance 127 / 127 461 / 461 -2380 / -2380 458 / 458 Weight 205 lb 6 oz 205 lb 2 oz 200 lb 14.4 oz Microbiology Reports for the Last 24 Hours: Microbiology 08/23/17 19:41 Sputum - Expectorated Sputum Gram Stain - Final - Constitutional no acute distress - *Routine Respiratory Exam Comments: Good air movement bilaterally. Decreased breath sounds. Previous chest x-ray is reviewed. - *Routine Cardiovascular Exam Present: RRR - *Routine Abdominal Exam Present: soft Comments: Obese - *Routine Extremities Exam Present: edema (Bilateral pedal) - *Routine Skin Exam Present: intact - *Routine Neurological Exam Present: alert, oriented X3 Assessment and Plan (1) Influenza Current visit: Yes Status: Acute Category: Medical Code(s): J11.1 - Influenza due to unidentified influenza virus with other respiratory manifestations (2) Follicular lymphoma Current visit: Yes Status: Chronic Category: Medical Code(s): C82.90 - Follicular lymphoma, unspecified, unspecified site (3) Hypoxia Current visit: Yes Status: Acute Category: Medical Code(s): R09.02 - Hypoxemia (4) Fever Current visit: Yes Status: Acute Category: Medical Code(s): R50.9 - Fever , unspecified (5) Thrombocytopenia Current visit: Yes Status: Acute Category: Medical Code(s): D69.6 - Thrombocytopenia, unspecified (6) Asthma Current visit: Yes Status: Chronic Category: Medical Code(s): J45.909 - Unspecified asthma, uncomplicated The patient's infection will respond to the chosen ABx?: Yes Is the patient receiving the right drug, dose, and route?: Yes Could a more targeted ABx be ordered?: No 7
[2017-08-24 10:20] LABS: Basophils % 0.5 % (0.1-2.0); Eosinophils # 0.2 K/mm3 (0.0-0.4); Eosinophils % 8.1 % (0.1-12.0); Hematocrit 25.9 % (37.0-47.0); Hemoglobin 8.9 g/dL (12.2-16.2); Lymphocytes # 0.2 K/mm3 (0.7-4.5); Lymphocytes % 11.1 K/mm3 (10-50); Mean Corpuscular HGB Conc 34.5 g/dL (31.8-35.4); Mean Corpuscular Hemoglobin 34.3 pg (27.0-31.2); Mean Corpuscular Volume 99.4 fl (81-99); Mean Platelet Volume 9.1 fl (7.4-10.4); Monocytes # 0.1 K/mm3 (0.1-1.0); Monocytes % 4.7 % (1.7-9.3); Neutrophils # 1.7 K/mm3 (1.8-7.8); Neutrophils % 75.6 % (37.0-80.0); Platelet Count 56 K/mm3 (142-424); Red Cell Distribution Width 18.1 % (11.5-17.5); White Blood Count 2.2 K/mm3 (4.8-10.8)
[2017-08-24 10:36] LABS: Alanine Aminotransferase 30 U/L (12-78); Albumin Level 2.1 gm/dL (3.4-5.0); Albumin/Globulin Ratio 0.6 (1.1-1.8); Alkaline Phosphatase 83 U/L (46-116); Anion Gap 4.4 mEq/L (5-15); Aspartate Amino Transferase 24 U/L (15-37); Bilirubin,Total 0.3 mg/dL (0.2-1.0); Blood Urea Nitrogen 10 mg/dL (7-18); Calcium 8.6 mg/dL (8.5-10.1); Chloride 99 mmol/L (98-107); Creatinine Clearance Estimated 79 mL/min (0-300); Creatinine,Serum 0.64 mg/dL (0.55-1.02); Estimated Glomerular Filt Rate 93 ml/min (>60); GFR (African American) 112 ML/MIN (>60); Globulin 3.3 gm/dl (1.3-3.2); Glucose 229 mg/dL (74-106); Potassium 3.4 mmoL/L (3.5-5.1); Sodium 140 mmol/L (136-145); Total Protein,Serum 5.4 gm/dL (6.4-8.2)
[2017-08-24 10:40] LABS: Carbon Dioxide 40 mmol/L (21.0-32.0)
--- NOTE | 2017-08-24 20:56 | PC.NURSE ---
late entry: pt has rested well this shift. pt sats have remained 89-91% on 4lpm/nc. lung sounds contain expiratory wheezes. pt ble have 1+ edema noted. pt gets up to the bsc without assistance. bowel sounds are active. pt states she has a bm every 3 days or so. last bm was noted to be 2/2. nad noted. pt had been at bedside off and on this shift. pt refused her devin hose r/t pain due to edema. per dr santana's orders pt ble were wrapped in burton bandages. report passed on to patient navigator at 1920
[2017-08-25] VITALS (12 sets, daily range): BP systolic 128–150; BP diastolic 52–80; PULSE 68–93; RESP 14–27; TEMP 36.3–36.6; O2SAT 88–95
--- NOTE | 2017-08-25 03:01 | PC.PHONENOTE ---
PT IS A&OX3. SHE HAS RECEIVED SCHEDULED PAIN MEDICATION. SHE HAS REPORTED A HEADACHE. HER SPOUSE IS AT THE BEDSIDE. LUNG SOUNDS WITH SCATTERED WHEEZES. VOIDING PER BSC. URINE IS YELLOW, CLEAR. SHE HAS BEEN TRANSFERRING INDEPENDENTLY. STAR BANDAGES IN PLACE ON BLE. SHE CONTINUES ON DROPLET PRECAUTIONS AND REVERSE ISOLATION.
--- NOTE | 2017-08-25 08:53 | HMH.ACPN2 ---
Internal Medicine - PN: Subj *Date: 08/25/17 *Time: 08:53 Interval history: Clinically she seems to be doing better. It is discouraging that her chest x-ray actually looks worse. There is the caveat on the report that this could be due to fluid. I will give her some Lasix. She does have rales in the right base and rhonchi. Feet still look edematous. Disposition is going to be a problem since she has no doctor in the area and she is been seen in the [place]. We will make some phone calls. Exam Vital signs and Labs for Last 24 Hours: Temp Pulse Resp BP Pulse Ox 97.8 F 89 22 150/73 88 L 08/25/17 08:00 08/25/17 08:00 08/25/17 08:00 08/25/17 08:00 08/25/17 08:00 Laboratory Results - last 24 hr 08/24/17 10:09: WBC 2.2 L, RBC 2.60 L, Hgb 8.9 L, Hct 25.9 L, MCV 99.4 H, MCH 34.3 H, MCHC 34.5, RDW 18.1 H, Plt Count 56 L D, MPV 9.1, Neut % (Auto) 75.6, Lymph % (Auto) 11.1, [place] % (Auto) 4.7, Eos % (Auto) 8.1, Baso % (Auto) 0.5, Neut # (Auto) 1.7 L, Lymph # (Auto) 0.2 L, [place] # (Auto) 0.1, Eos # (Auto) 0.2, Baso # (Auto) 0.0 08/24/17 10:09: Sodium 140, Potassium 3.4 L, Chloride 99, Carbon Dioxide 40 H, Anion Gap 4.4 L, BUN 10, Creatinine 0.64, Estimated Creat Clear 79, Estimated GFR 93, Est GFR ( Amer) 112, Glucose 229 H, Calcium 8.6, Total Bilirubin 0.3, AST 24, ALT 30, Alkaline Phosphatase 83, Total Protein 5.4 L, Albumin 2.1 L, Globulin 3.3 H, Albumin/Globulin Ratio 0.6 L Laboratory Tests 08/20/17 08/20/17 08/21/17 22:10 22:10 06:40 WBC 2.9 L 2.1 L D Hgb 10.2 L 9.8 L Plt Count 48 L* 36 L* Sodium Potassium BUN Creatinine Glucose 174 H 08/21/17 08/24/17 08/24/17 06:40 10:09 10:09 WBC 2.2 L Hgb 8.9 L Plt Count 56 L D Sodium 138 140 Potassium 4.7 3.4 L BUN 12 Creatinine 0.67 Glucose 169 H I & O for Last 24 hours: Intake & Output 08/22/17 08/23/17 08/24/17 08/25/17 11:59 11:59 11:59 11:59 Intake Total 3261 / 3261 1620 / 1620 1858 / 1858 840 / 840 Output Total 2800 / 2800 4000 / 4000 1400 / 1400 4300 / 4300 Balance 461 / 461 -2380 / -2380 458 / 458 -3460 / -3460 Weight 205 lb 2 oz 200 lb 14.4 oz 200 lb 3.2 oz Microbiology Reports for the Last 24 Hours: Microbiology 08/23/17 19:41 Sputum - Expectorated Sputum Gram Stain - Final 08/23/17 19:41 Sputum - Expectorated Sputum Sputum Culture - Preliminary Yeast - Constitutional no acute distress - *Routine Respiratory Exam Present: rales, rhonchi Comments: right base - *Routine Cardiovascular Exam Present: RRR - *Routine Abdominal Exam Present: soft. Absent: tenderness - *Routine Extremities Exam Present: edema Comments: Pedal edema - *Routine Neurological Exam Present: alert, oriented X3 Assessment and Plan (1) Influenza Current visit: Yes Status: Acute Category: Medical Code(s): J11.1 - Influenza due to unidentified influenza virus with other respiratory manifestations (2) Follicular lymphoma Current visit: Yes Status: Chronic Category: Medical Code(s): C82.90 - Follicular lymphoma, unspecified, unspecified site (3) Hypoxia Current visit: Yes Status: Acute Category: Medical Code(s): R09.02 - Hypoxemia (4) Fever Current visit: Yes Status: Acute Category: Medical Code(s): R50.9 - Fever, unspecified (5) Thrombocytopenia Current visit: Yes Status: Acute Category: Medical Code(s): D69.6 - Thrombocytopenia, unspecified (6) Asthma Current visit: Yes Status: Chronic Category: Medical Code(s): J45.909 - Unspecified asthma, uncomplicated 7
--- NOTE | 2017-08-25 08:56 | P.PN_ITS ---
Internal Medicine - PN: Subj *Date: 08/25/17 *Time: 08:53 Interval history: Clinically she seems to be doing better. It is discouraging that her chest x- ray actually looks worse. There is the caveat on the report that this could be due to fluid. I will give her some Lasix. She does have rales in the right base and rhonchi. Feet still look edematous. Disposition is going to be a problem since she has no doctor in the area and she is been seen in the [place] [facility]. We will make some phone calls. Exam Vital signs and Labs for Last 24 Hours: Temp Pulse Resp BP Pulse Ox 97.8 F 89 22 150/73 88 L 08/25/17 08:00 08/25/17 08:00 08/25/17 08:00 08/25/17 08:00 08/25/17 08:00 Laboratory Results - last 24 hr 08/24/17 10:09: WBC 2.2 L, RBC 2.60 L, Hgb 8.9 L, Hct 25.9 L, MCV 99.4 H, MCH 34.3 H, MCHC 34.5, RDW 18.1 H, Plt Count 56 L D, MPV 9.1, Neut % (Auto) 75.6, Lymph % (Auto) 11.1, [place] % (Auto) 4.7, Eos % (Auto) 8.1, Baso % (Auto) 0.5, Neut # (Auto) 1.7 L, Lymph # (Auto) 0.2 L, [place] # (Auto) 0.1, Eos # (Auto) 0.2, Baso # (Auto) 0.0 08/24/17 10:09: Sodium 140, Potassium 3.4 L, Chloride 99, Carbon Dioxide 40 H, Anion Gap 4.4 L, BUN 10, Creatinine 0.64, Estimated Creat Clear 79, Estimated GFR 93, Est GFR ( Amer) 112, Glucose 229 H, Calcium 8.6, Total Bilirubin 0.3, AST 24, ALT 30, Alkaline Phosphatase 83, Total Protein 5.4 L, Albumin 2.1 L , Globulin 3.3 H, Albumin/Globulin Ratio 0.6 L Laboratory Tests 08/20/17 08/20/17 08/21/17 22:10 22:10 06:40 WBC 2.9 L 2.1 L D Hgb 10.2 L 9.8 L Plt Count 48 L* 36 L* Sodium Potassium BUN Creatinine Glucose 174 H 08/21/17 08/24/17 08/24/17 06:40 10:09 10:09 WBC 2.2 L Hgb 8.9 L Plt Count 56 L D Sodium 138 140 Potassium 4.7 3.4 L BUN 12 Creatinine 0.67 Glucose 169 H I & O for Last 24 hours: Intake & Output 08/22/17 08/23/17 08/24/17 08/25/17 11:59 11:59 11:59 11:59 Intake Total 3261 / 3261 1620 / 1620 1858 / 1858 840 / 840 Output Total 2800 / 2800 4000 / 4000 1400 / 1400 4300 / 4300 Balance 461 / 461 -2380 / -2380 458 / 458 -3460 / -3460 Weight 205 lb 2 oz 200 lb 14.4 oz 200 lb 3.2 oz Microbiology Reports for the Last 24 Hours: Microbiology 08/23/17 19:41 Sputum - Expectorated Sputum Gram Stain - Final 08/23/17 19:41 Sputum - Expectorated Sputum Sputum Culture - Preliminary Yeast - Constitutional no acute distress - *Routine Respiratory Exam Present: rales, rhonchi Comments: right base - *Routine Cardiovascular Exam Present: RRR - *Routine Abdominal Exam Present: soft. Absent: tenderness - *Routine Extremities Exam Present: edema Comments: Pedal edema - *Routine Neurological Exam Present: alert, oriented X3 Assessment and Plan (1) Influenza Current visit: Yes Status: Acute Category: Medical Code(s): J11.1 - Influenza due to unidentified influenza virus with other respiratory manifestations (2) Follicular lymphoma Current visit: Yes Status: Chronic Category: Medical Code(s): C82.90 - Follicular lymphoma, unspecified, unspecified site (3) Hypoxia Current visit: Yes Status: Acute Category: Medical Code(s): R09.0
--- NOTE | 2017-08-25 09:42 | PC.NURSE ---
PT HAS +1 PITTING EDEMA NOTED TO BLE. CURRENTLY HAS STAR WRAPS TO BLE FOR VTE PROPHYLAXIS PER DR. FRANCOIS REQUEST.
--- NOTE | 2017-08-25 11:00 | P.PN_ITS ---
Internal Medicine - PN: Subj *Date: 08/25/17 *Time: 10:59 Exam Vital signs and Labs for Last 24 Hours: Temp Pulse Resp BP Pulse Ox 97.8 F 89 22 150/73 88 L 08/25/17 08:00 08/25/17 08:00 08/25/17 08:00 08/25/17 08:00 08/25/17 08:00 I & O for Last 24 hours: Intake & Output 08/22/17 08/23/17 08/24/17 08/25/17 23:59 23:59 23:59 23:59 Intake Total 3559 / 3559 240 / 240 2338 / 2338 360 / 360 Output Total 3500 / 3500 2000 / 1999 5200 / 5200 1600 / 1600 Balance 59 / 59 -1760 / -1760 -2862 / -2862 -1240 / -1240 Weight 93.043 kg 91.127 kg 90.809 kg Microbiology Reports for the Last 24 Hours: Microbiology 08/23/17 19:41 Sputum - Expectorated Sputum Gram Stain - Final 08/23/17 19:41 Sputum - Expectorated Sputum Sputum Culture - Preliminary Yeast Assessment and Plan (1) Influenza Current visit: Yes Status: Acute Category: Medical Code(s): J11.1 - Influenza due to unidentified influenza virus with other respiratory manifestations (2) Follicular lymphoma Current visit: Yes Status: Chronic Category: Medical Code(s): C82.90 - Follicular lymphoma, unspecified, unspecified site (3) Hypoxia Current visit: Yes Status: Acute Category: Medical Code(s): R09.02 - Hypoxemia (4) Fever Current visit: Yes Status: Acute Category: Medical Code(s): R50.9 - Fever , unspecified (5) Thrombocytopenia Current visit: Yes Status: Acute Category: Medical Code(s): D69.6 - Thrombocytopenia, unspecified (6) Asthma Current visit: Yes Status: Chronic Category: Medical Code(s): J45.909 - Unspecified asthma, uncomplicated The patient's infection will respond to the chosen ABx?: Yes Is the patient receiving the right drug, dose, and route?: Yes Could a more targeted ABx be ordered?: No 7
[2017-08-25 15:28] LABS: Anion Gap 6.3 mEq/L (5-15); Blood Urea Nitrogen 10 mg/dL (7-18); Chloride 97 mmol/L (98-107); Creatinine Clearance Estimated 78 mL/min (0-300); Creatinine,Serum 0.71 mg/dL (0.55-1.02); Estimated Glomerular Filt Rate 82 ml/min (>60); GFR (African American) 99 ML/MIN (>60); Glucose 194 mg/dL (74-106); Potassium 3.3 mmoL/L (3.5-5.1); Sodium 141 mmol/L (136-145)
[2017-08-25 15:29] LABS: Carbon Dioxide 41 mmol/L (21.0-32.0)
[2017-08-26] VITALS (9 sets, daily range): BP systolic 132–153; BP diastolic 65–78; PULSE 66–95; RESP 18–22; TEMP 36.4–37.3; O2SAT 91–95
--- NOTE | 2017-08-26 07:00 | XR_ITS ---
XR chest 2V HISTORY: ITS.REASON: Bronchitis ORDERING PHYSICIAN: Daniel Tello MD PATIENT AGE: 67 years COMPARISON: To 418 FINDINGS: The cardiomediastinal silhouette and pulmonary vascularity are within normal limits. Elevated right hemidiaphragm with atelectasis or infiltrate in the right lower lobe once again noted. Infiltrate in the left lower lobe also noted unchanged. Mediport catheter remains in place. IMPRESSION: No change bilateral pneumonia
--- NOTE | 2017-08-26 07:42 | HMH.ACPN2 ---
Internal Medicine - PN: Subj *Date: 08/26/17 *Time: 07:42 Interval history: Doing better each day; eating better; breathing is much better; some cough; she also slept well tonight; wears CPAP at night; she is voiding QS; bowels are moving Exam Vital signs and Labs for Last 24 Hours: Temp Pulse Resp BP Pulse Ox 97.8 F 94 H 20 131/80 91 L 08/25/17 20:17 08/26/17 06:17 08/26/17 04:00 08/25/17 20:17 08/26/17 06:17 Laboratory Results - last 24 hr 08/25/17 15:12: Sodium 141, Potassium 3.3 L, Chloride 97 L, Carbon Dioxide 41 H*, Anion Gap 6.3, BUN 10, Creatinine 0.71, Estimated Creat Clear 78, Estimated GFR 82, Est GFR ( Amer) 99, Glucose 194 H I & O for Last 24 hours: Intake & Output 08/23/17 08/24/17 08/25/17 08/26/17 11:59 11:59 11:59 11:59 Intake Total 1620 / 1620 1858 / 1858 840 / 840 360 / 360 Output Total 4000 / 4000 1400 / 1400 5900 / 5900 3000 / 3000 Balance -2380 / -2380 458 / 458 -5060 / -5060 -2640 / -2640 Weight 205 lb 2 oz 200 lb 14.4 oz 200 lb 3.2 oz Microbiology Reports for the Last 24 Hours: Microbiology 08/23/17 19:41 Sputum - Expectorated Sputum Gram Stain - Final 08/23/17 19:41 Sputum - Expectorated Sputum Sputum Culture - Final Yeast - Constitutional no acute distress Comments: Awakened for exam - *Routine Respiratory Exam Comments: Crackles to mid lung ace bilaterally posteriorly - *Routine Cardiovascular Exam Present: RRR - *Routine Abdominal Exam Present: soft, normoactive bowel sounds. Absent: tenderness, distended - *Routine Extremities Exam Comments: The labs to lower legs bilaterally; minimal leg edema - *Routine Neurological Exam Present: alert, oriented X3 Assessment and Plan (1) Influenza Current visit: Yes Status: Acute Category: Medical Code(s): J11.1 - Influenza due to unidentified influenza virus with other respiratory manifestations (2) Follicular lymphoma Current visit: Yes Status: Chronic Category: Medical Code(s): C82.90 - Follicular lymphoma, unspecified, unspecified site (3) Hypoxia Current visit: Yes Status: Acute Category: Medical Code(s): R09.02 - Hypoxemia (4) Fever Current visit: Yes Status: Acute Category: Medical Code(s): R50.9 - Fever, unspecified (5) Thrombocytopenia Current visit: Yes Status: Acute Category: Medical Code(s): D69.6 - Thrombocytopenia, unspecified (6) Asthma Current visit: Yes Status: Chronic Category: Medical Code(s): J45.909 - Unspecified asthma, uncomplicated - Assessment and plan all Dx Assessment and Plan for all problems:: Continue current care; encourage out of bed activity 7
--- NOTE | 2017-08-26 07:45 | P.PN_ITS ---
Internal Medicine - PN: Subj *Date: 08/26/17 *Time: 07:42 Interval history: Doing better each day; eating better; breathing is much better; some cough; she also slept well tonight; wears CPAP at night; she is voiding QS; bowels are moving Exam Vital signs and Labs for Last 24 Hours: Temp Pulse Resp BP Pulse Ox 97.8 F 94 H 20 131/80 91 L 08/25/17 20:17 08/26/17 06:17 08/26/17 04:00 08/25/17 20:17 08/26/17 06:17 Laboratory Results - last 24 hr 08/25/17 15:12: Sodium 141, Potassium 3.3 L, Chloride 97 L, Carbon Dioxide 41 H* , Anion Gap 6.3, BUN 10, Creatinine 0.71, Estimated Creat Clear 78, Estimated GFR 82, Est GFR ( Amer) 99, Glucose 194 H I & O for Last 24 hours: Intake & Output 08/23/17 08/24/17 08/25/17 08/26/17 11:59 11:59 11:59 11:59 Intake Total 1620 / 1620 1858 / 1858 840 / 840 360 / 360 Output Total 4000 / 4000 1400 / 1400 5900 / 5900 3000 / 3000 Balance -2380 / -2380 458 / 458 -5060 / -5060 -2640 / -2640 Weight 205 lb 2 oz 200 lb 14.4 oz 200 lb 3.2 oz Microbiology Reports for the Last 24 Hours: Microbiology 08/23/17 19:41 Sputum - Expectorated Sputum Gram Stain - Final 08/23/17 19:41 Sputum - Expectorated Sputum Sputum Culture - Final Yeast - Constitutional no acute distress Comments: Awakened for exam - *Routine Respiratory Exam Comments: Crackles to mid lung ace bilaterally posteriorly - *Routine Cardiovascular Exam Present: RRR - *Routine Abdominal Exam Present: soft, normoactive bowel sounds. Absent: tenderness, distended - *Routine Extremities Exam Comments: The labs to lower legs bilaterally; minimal leg edema - *Routine Neurological Exam Present: alert, oriented X3 Assessment and Plan (1) Influenza Current visit: Yes Status: Acute Category: Medical Code(s): J11.1 - Influenza due to unidentified influenza virus with other respiratory manifestations (2) Follicular lymphoma Current visit: Yes Status: Chronic Category: Medical Code(s): C82.90 - Follicular lymphoma, unspecified, unspecified site (3) Hypoxia Current visit: Yes Status: Acute Category: Medical Code(s): R09.02 - Hypoxemia (4) Fever Current visit: Yes Status: Acute Category: Medical Code(s): R50.9 - Fever , unspecified (5) Thrombocytopenia Current visit: Yes Status: Acute Category: Medical Code(s): D69.6 - Thrombocytopenia, unspecified (6) Asthma Current visit: Yes Status: Chronic Category: Medical Code(s): J45.909 - Unspecified asthma, uncomplicated - Assessment and plan all Dx Assessment and Plan for all problems:: Continue current care; encourage out of bed activity 7
[2017-08-26 09:20] LABS: Basophils % 1.1 % (0.1-2.0); Eosinophils # 0.2 K/mm3 (0.0-0.4); Eosinophils % 5.7 % (0.1-12.0); Hematocrit 28.7 % (37.0-47.0); Hemoglobin 9.7 g/dL (12.2-16.2); Lymphocytes # 0.3 K/mm3 (0.7-4.5); Lymphocytes % 8.8 K/mm3 (10-50); Mean Corpuscular HGB Conc 33.8 g/dL (31.8-35.4); Mean Corpuscular Volume 97.8 fl (81-99); Mean Platelet Volume 8.7 fl (7.4-10.4); Monocytes # 0.3 K/mm3 (0.1-1.0); Monocytes % 7.5 % (1.7-9.3); Neutrophils % 76.9 % (37.0-80.0); Platelet Count 146 K/mm3 (142-424); Red Blood Count 2.93 M/mm3 (4.20-5.40); Red Cell Distribution Width 17.9 % (11.5-17.5); White Blood Count 3.9 K/mm3 (4.8-10.8)
[2017-08-26 09:35] LABS: Anion Gap 7.5 mEq/L (5-15); Blood Urea Nitrogen 12 mg/dL (7-18); Chloride 99 mmol/L (98-107); Creatinine Clearance Estimated 78 mL/min (0-300); Creatinine,Serum 0.59 mg/dL (0.55-1.02); Estimated Glomerular Filt Rate 102 ml/min (>60); GFR (African American) 123 ML/MIN (>60); Glucose 168 mg/dL (74-106); Potassium 3.5 mmoL/L (3.5-5.1); Sodium 143 mmol/L (136-145)
[2017-08-26 09:53] LABS: Carbon Dioxide 40 mmol/L (21.0-32.0)
[2017-08-27] VITALS (10 sets, daily range): BP systolic 117–139; BP diastolic 66–78; PULSE 70–97; RESP 20–27; TEMP 36.2–37.1; O2SAT 83–95
--- NOTE | 2017-08-27 06:38 | PC.NURSE ---
C/O PAIN IN BACK, LEGS AND HEAD, ADMINISTERED PRN AND SCHEDULED PAIN MEDICATION PER SEP, ON REASSESSMENT PT NOTED WITH EYES CLOSED AND RESTING. CPAP/4LNC TOLERATED WELL THIS SHIFT WITH O2SATS >90%. DROPLET/REVERSE ISOLATION TOLERATED WELL. PORT DRESSING CHANGED AT 2129, STERILE TECHNIQUE MAINTAINED, DRESSING CDI, NO S/S OF INFECTION NOTED. VSS. WILL CONTINUE TO MONITOR.
--- NOTE | 2017-08-27 06:43 | PC.NURSE ---
NSR NOTED PER RELIGIOUS HEALER THIS SHIFT.
--- NOTE | 2017-08-27 07:39 | PC.NURSE ---
Received report from S Call RN
--- NOTE | 2017-08-27 08:26 | HMH.ACPN2 ---
Internal Medicine - PN: Subj *Date: 08/27/17 *Time: 08:47 Interval history: Patient states she is is feeling better every day. Breathing is better. She wears oxygen as needed mostly when lying down. She has less cough. She denies chest pain. She is up to the bedside commode without difficulty. She eats better every day. Bowels are moving Dr. Tello spoke with the patient and her after speaking to cancer treatment [facility] and her doctor there. We would hope to discharge her at some point soon to go directly to cancer treatment [facility] for her further treatments. The Epogen was ordered yesterday. Exam Vital signs and Labs for Last 24 Hours: Temp Pulse Resp BP Pulse Ox 98.0 F 90 20 129/78 90 L 08/27/17 04:00 08/27/17 06:04 08/27/17 04:00 08/27/17 04:00 08/27/17 06:04 Laboratory Results - last 24 hr 08/26/17 09:10: WBC 3.9 L D, RBC 2.93 L, Hgb 9.7 L, Hct 28.7 L, MCV 97.8, MCH 33.0 H, MCHC 33.8, RDW 17.9 H, Plt Count 146 D, MPV 8.7, Neut % (Auto) 76.9, Lymph % (Auto) 8.8 L, [place] % (Auto) 7.5, Eos % (Auto) 5.7, Baso % (Auto) 1.1, Neut # (Auto) 3.0, Lymph # (Auto) 0.3 L, [place] # (Auto) 0.3, Eos # (Auto) 0.2, Baso # (Auto) 0.0 08/26/17 09:10: Sodium 143, Potassium 3.5, Chloride 99, Carbon Dioxide 40 H, Anion Gap 7.5, BUN 12, Creatinine 0.59, Estimated Creat Clear 78, Estimated GFR 102, Est GFR ( Amer) 123 D, Glucose 168 H I & O for Last 24 hours: Intake & Output 08/24/17 08/25/17 08/26/17 08/27/17 11:59 11:59 11:59 11:59 Intake Total 1858 / 1858 840 / 840 720 / 720 1010 / 1010 Output Total 1400 / 1400 5900 / 5900 3000 / 3000 2450 / 2450 Balance 458 / 458 -5060 / -5060 -2280 / -2280 -1440 / -1440 Weight 200 lb 14.4 oz 200 lb 3.2 oz 193 lb 14.4 oz Microbiology Reports for the Last 24 Hours: Microbiology 08/23/17 19:41 Sputum - Expectorated Sputum Gram Stain - Final 08/23/17 19:41 Sputum - Expectorated Sputum Sputum Culture - Final Yeast - Constitutional no acute distress Comments: Awaken for exam; she appears comfortable in the bed - *Routine Respiratory Exam Comments: Posteriorly scattered soft expiratory wheezing. - *Routine Cardiovascular Exam Present: RRR - *Routine Abdominal Exam Present: soft, normoactive bowel sounds. Absent: tenderness - *Routine Extremities Exam Present: pulses intact. Absent: edema - *Routine Neurological Exam Present: alert, oriented X3 Assessment and Plan (1) Influenza Current visit: Yes Status: Acute Category: Medical Code(s): J11.1 - Influenza due to unidentified influenza virus with other respiratory manifestations (2) Follicular lymphoma Current visit: Yes Status: Chronic Category: Medical Code(s): C82.90 - Follicular lymphoma, unspecified, unspecified site (3) Hypoxia Current visit: Yes Status: Acute Category: Medical Code(s): R09.02 - Hypoxemia (4) Fever Current visit: Yes Status: Acute Category: Medical Code(s): R50.9 - Fever, unspecified (5) Thrombocytopenia Current visit: Yes Status: Acute Category: Medical Code(s): D69.6 - Thrombocytopenia, unspecified (6) Asthma Current visit: Yes Status: Chronic Category: Medical Code(s): J45.909 - Unspecified asthma, uncomplicated - Assessment and plan all Dx Assessment and Plan for all problems:: Continue with current care 7
--- NOTE | 2017-08-27 08:44 | P.PN_ITS ---
Internal Medicine - PN: Subj *Date: 08/27/17 *Time: 08:47 Interval history: Patient states she is is feeling better every day. Breathing is better. She wears oxygen as needed mostly when lying down. She has less cough. She denies chest pain. She is up to the bedside commode without difficulty. She eats better every day. Bowels are moving Dr. Tello spoke with the patient and her after speaking to cancer treatment [facility] and her doctor there. We would hope to discharge her at some point soon to go directly to cancer treatment [facility] for her further treatments. The Epogen was ordered yesterday. Exam Vital signs and Labs for Last 24 Hours: Temp Pulse Resp BP Pulse Ox 98.0 F 90 20 129/78 90 L 08/27/17 04:00 08/27/17 06:04 08/27/17 04:00 08/27/17 04:00 08/27/17 06:04 Laboratory Results - last 24 hr 08/26/17 09:10: WBC 3.9 L D, RBC 2.93 L, Hgb 9.7 L, Hct 28.7 L, MCV 97.8, MCH 33.0 H, MCHC 33.8, RDW 17.9 H, Plt Count 146 D, MPV 8.7, Neut % (Auto) 76.9, Lymph % (Auto) 8.8 L, [place] % (Auto) 7.5, Eos % (Auto) 5.7, Baso % (Auto) 1.1, Neut # (Auto) 3.0, Lymph # (Auto) 0.3 L, [place] # (Auto) 0.3, Eos # (Auto) 0.2, Baso # (Auto) 0.0 08/26/17 09:10: Sodium 143, Potassium 3.5, Chloride 99, Carbon Dioxide 40 H, Anion Gap 7.5, BUN 12, Creatinine 0.59, Estimated Creat Clear 78, Estimated GFR 102, Est GFR ( Amer) 123 D, Glucose 168 H I & O for Last 24 hours: Intake & Output 08/24/17 08/25/17 08/26/17 08/27/17 11:59 11:59 11:59 11:59 Intake Total 1858 / 1858 840 / 840 720 / 720 1010 / 1010 Output Total 1400 / 1400 5900 / 5900 3000 / 3000 2450 / 2450 Balance 458 / 458 -5060 / -5060 -2280 / -2280 -1440 / -1440 Weight 200 lb 14.4 oz 200 lb 3.2 oz 193 lb 14.4 oz Microbiology Reports for the Last 24 Hours: Microbiology 08/23/17 19:41 Sputum - Expectorated Sputum Gram Stain - Final 08/23/17 19:41 Sputum - Expectorated Sputum Sputum Culture - Final Yeast - Constitutional no acute distress Comments: Awaken for exam; she appears comfortable in the bed - *Routine Respiratory Exam Comments: Posteriorly scattered soft expiratory wheezing. - *Routine Cardiovascular Exam Present: RRR - *Routine Abdominal Exam Present: soft, normoactive bowel sounds. Absent: tenderness - *Routine Extremities Exam Present: pulses intact. Absent: edema - *Routine Neurological Exam Present: alert, oriented X3 Assessment and Plan (1) Influenza Current visit: Yes Status: Acute Category: Medical Code(s): J11.1 - Influenza due to unidentified influenza virus with other respiratory manifestations (2) Follicular lymphoma Current visit: Yes Status: Chronic Category: Medical Code(s): C82.90 - Follicular lymphoma, unspecified, unspecified site (3) Hypoxia Current visit: Yes Status: Acute Category: Medical Code(s): R09.02 - Hypoxemia (4) Fever Current visit: Yes Status: Acute Category: Medical Code(s): R50.9 - Fever , unspecified (5) Thrombocytopenia Current visit: Yes Status: Acute Category: Medical Code(s): D69.6 - Thrombocytopenia, unspecified (6) Asthma Current visit: Yes Status: Chronic Category: Medical Code(s): J45.909 - Unspecified asthma, uncomplicated - Assessment and plan all Dx Assessment and Plan for all problems:: Continue with current care 7
--- NOTE | 2017-08-27 10:45 | PC.NURSE ---
Pt up to BSC and had a large soft brown BM.
--- NOTE | 2017-08-27 17:07 | PC.NURSE ---
pt moved to med surg floor. on assessment wheezes throughout. bowel sounds normal and heart sounds normal. cpap is on. reverse and droplet isolation in place. pt has no complaints at this time. call light in reach. nonskids at bedside. will continue to monitor pt condition. will notify md of transfer to floor.
--- NOTE | 2017-08-27 20:18 | PC.NURSE ---
rn made aware of low o2 sat
[2017-08-28] VITALS (7 sets, daily range): BP systolic 111–138; BP diastolic 6–68; PULSE 68–101; RESP 18–24; TEMP 36.1–36.6; O2SAT 75–93
--- NOTE | 2017-08-28 04:36 | PC.NURSE ---
PT HAS SLEPT. COMPLAINTS OF HEADACHE EARLY IN SHIFT FOR WHICH SHE RECEIVED TYLENOL FOR. PT RECEIVES SCHEDULED PAIN MED. OCCASSIONAL COUGH NOTED. PT HAS WORN HOME CPAP ALL THIS SHIFT WITH 3L OF OXYGEN. PT MOVES FREELY ABOUT THE BED. HAS BEEN AT BEDSIDE TONIGHT.
[2017-08-28 07:00] LABS: Basophils % 0.6 % (0.1-2.0); Eosinophils # 0.2 K/mm3 (0.0-0.4); Eosinophils % 3.7 % (0.1-12.0); Hematocrit 31.3 % (37.0-47.0); Hemoglobin 10.1 g/dL (12.2-16.2); Lymphocytes # 0.7 K/mm3 (0.7-4.5); Lymphocytes % 11.1 K/mm3 (10-50); Mean Corpuscular HGB Conc 32.3 g/dL (31.8-35.4); Mean Corpuscular Volume 98.9 fl (81-99); Mean Platelet Volume 8.1 fl (7.4-10.4); Monocytes # 0.4 K/mm3 (0.1-1.0); Neutrophils # 4.9 K/mm3 (1.8-7.8); Neutrophils % 77.5 % (37.0-80.0); Platelet Count 255 K/mm3 (142-424); Red Blood Count 3.16 M/mm3 (4.20-5.40); Red Cell Distribution Width 18.3 % (11.5-17.5); White Blood Count 6.3 K/mm3 (4.8-10.8)
--- NOTE | 2017-08-28 08:17 | P.PN_ITS ---
Internal Medicine - PN: Subj *Date: 08/28/17 *Time: 08:14 Interval history: Patient states she feels slightly better this morning. She is wearing her CPAP. She denies any shortness of breath. She does complain of a slight headache and would like some Tylenol. Exam Vital signs and Labs for Last 24 Hours: Temp Pulse Resp BP Pulse Ox 97.8 F 92 H 18 138/60 89 L 08/28/17 07:55 08/28/17 07:55 08/28/17 07:55 08/28/17 07:55 08/28/17 07:55 Laboratory Results - last 24 hr 08/28/17 06:30: WBC 6.3 D, RBC 3.16 L, Hgb 10.1 L, Hct 31.3 L, MCV 98.9, MCH 32.0 H, MCHC 32.3, RDW 18.3 H, Plt Count 255 D, MPV 8.1, Neut % (Auto) 77.5, Lymph % (Auto) 11.1, [place] % (Auto) 7.0, Eos % (Auto) 3.7, Baso % (Auto) 0.6, Neut # (Auto) 4.9, Lymph # (Auto) 0.7, [place] # (Auto) 0.4, Eos # (Auto) 0.2, Baso # (Auto) 0.0 I & O for Last 24 hours: Intake & Output 08/25/17 08/26/17 08/27/17 08/28/17 11:59 11:59 11:59 11:59 Intake Total 840 / 840 720 / 720 1250 / 1250 1020 / 1020 Output Total 5900 / 5900 3000 / 3000 2750 / 2750 1000 / 1000 Balance -5060 / -5060 -2280 / -2280 -1500 / -1500 20 / 20 Weight 200 lb 3.2 oz 193 lb 14.4 oz - Constitutional no acute distress - *Routine Respiratory Exam Present: CTA bilaterally - *Routine Cardiovascular Exam Present: RRR - *Routine Abdominal Exam Present: soft, normoactive bowel sounds. Absent: tenderness - *Routine Extremities Exam Absent: edema Assessment and Plan (1) Influenza Current visit: Yes Status: Acute Category: Medical Code(s): J11.1 - Influenza due to unidentified influenza virus with other respiratory manifestations (2) Follicular lymphoma Current visit: Yes Status: Chronic Category: Medical Code(s): C82.90 - Follicular lymphoma, unspecified, unspecified site (3) Hypoxia Current visit: Yes Status: Acute Category: Medical Code(s): R09.02 - Hypoxemia (4) Fever Current visit: Yes Status: Acute Category: Medical Code(s): R50.9 - Fever , unspecified (5) Thrombocytopenia Current visit: Yes Status: Acute Category: Medical Code(s): D69.6 - Thrombocytopenia, unspecified (6) Asthma Current visit: Yes Status: Chronic Category: Medical Code(s): J45.909 - Unspecified asthma, uncomplicated - Assessment and plan all Dx Assessment and Plan for all problems:: Pt improving. Will discuss further care with Dr. Tello. 7
--- NOTE | 2017-08-28 11:53 | XR_ITS ---
XR chest portable HISTORY: Pneumonia follow-up ITS.REASON: Pneumonia ORDERING PHYSICIAN: Daniel Tello MD PATIENT AGE: 67 years COMPARISON: 08 26 17 FINDINGS: Right subclavian tunneled catheter present with the tip in region of the SVC. The right hemidiaphragm is elevated as before. The opacities in the lung bases have improved since with improving pneumonia. Upper lobes are clear. IMPRESSION: Improving bilateral pneumonia persistent elevated right hemidiaphragm
--- NOTE | 2017-08-28 15:17 | SW/DCPLANNER ---
RECEIVED REFERRAL FOR THIS PATIENT FOR HOME HEALTH SERVICES: I SET PATIENT UP WITH [facility] AND PATIENT WILL BE SEEN IN THE AM...SHE IS DISCHARGING HOME LATER IN THE AFTERNOON...
--- NOTE | 2017-08-28 15:59 | SW/DCPLANNER ---
RECEIVED REFERRAL FOR THIS PATIENT FOR A PORTABLE TANK FOR TO GET PATIENT HOME FROM THE HOSPITAL...MS GAYTAN IS ALREADY ESTABLISHED WITH [facility] BUT NEEDS A PORTABLE TANKE TO GET HER HOME....SHE WILL DISCHARGE AFTER SHE RECEIVES HER TANK TO GET HER HOME..
--- NOTE | 2017-08-28 16:17 | PC.NURSE ---
Pt and family were concerned on discharge due to no follow up appt with [facility] and no oxygen tank. Arrangements were made to follow up with [facility] on FridaySep 01 at 11:15am. Order for oxygen was sent to [facility] also pt and family were informed that home health would be coming to their house to set up oxygen and care as needed. Family and pt are ok to be discharged home with this care.
--- NOTE | 2017-09-02 13:55 | HMH.DCSUM ---
General - General Admission date: 08/21/17 Discharge date: 08/28/17 HPI HPI: Mr. Fowler is a 67-year-old female with a history of follicular lymphoma, asthma, paralyzed middle lobe, and elevated hemidiaphragm, IBS, and a sleep disorder. She states she normally uses oxygen at 2 L/min at home. She states she had chemo last Friday and began feeling poorly after this. She has been nauseated and coughing and has also had a fever. She began getting more short of breath and was brought to the emergency room. She was felt to have a pneumonia and was admitted. She was placed on a Ventimask. She currently is treated by an oncologist at [facility] in [place], however she is unsure of his name. We have called her and he states she has been to [facility] and has seen Samuel and they were not satisfied with care, so they went to [place]. Objective Vital signs: Temp Pulse Resp BP Pulse Ox 97.9 F 95 H 24 111/44 83 L 08/28/17 15:43 08/28/17 15:43 08/28/17 15:43 08/28/17 15:43 08/28/17 15:43 Narrative: - Constitutional Comments: Does not appear to feel well - *Routine HEENT Exam Head: Present: normocephalic, atraumatic Eye: Present: EOMI, PERRL ENT: Present: mucous membranes dry - *Routine Neck Exam Present: supple, full ROM - *Routine Respiratory Exam Present: decreased breath sounds, wheezes - *Routine Cardiovascular Exam Present: tachycardia (regular rhythm) - *Routine Abdominal Exam Present: soft, normoactive bowel sounds. Absent: tenderness - *Routine Extremities Exam Absent: edema - *Routine Skin Exam Present: intact - *Routine Neurological Exam Present: normal speech (but confused at times) Hospital Course Hospital Course: She had been started on abx. When examined the am of the H&P, the patient was not wearing her oxygen mask and her sats were in the 50's. She was placed on BIPAP and a PCR respiratory panel was done revealing influenza A. She was started on tamiflu. Her blood gas improved on BIPAP. She improved slowly and was able to be weaned back to nasal oxygen. Her first few CXR's showed no improvement. Her CXR on 08/28/17 finally showed improvement in her bilateral pneumonia. Dr. Tello did speak with her physician from [facility] in [place], Dr Enmanuel King. They were in agreement to start her on Epogen. She was stable to be discharged and will f/u with Dr. Tello as well as her physician in [place]. DS: Diagnosis - Discharge Diagnosis (1) Influenza Status: Acute (2) Community acquired pneumonia Status: Acute (3) Follicular lymphoma Status: Chronic (4) Hypoxia Status: Acute (5) Fever Status: Acute (6) Thrombocytopenia Status: Acute (7) Asthma Status: Chronic Meds Home Medications Medication Instructions Recorded Confirmed Type Cyclophosphamide [Cytoxan 1gm vial] 1 gm IV ONCE 08/18/17 08/20/17 History Doxorubicin HCl 0 mg IV DIRECTED 08/18/17 08/20/17 History Ondansetron [Zofran 8mg ODT] 8 mg PO NEEDED PRN 08/18/17 08/20/17 History Pegfilgrastim [Neulasta 6mg/0.6mL 0 mg IV NEEDED PRN 08/18/17 08/20/17 History Syringe] Prochlorperazine Maleate 10 mg PO Q6H 08/18/17 08/20/17 History [Compazine 10mg tablet] Rituximab [Rituxan 100mg/10mL vial] 0 mg IV NEEDED PRN 08/18/17 08/20/17 History Vincristine Sulfate [vinCRISTINE 1 mg IV NEEDED PRN 08/18/17 08/20/17 History 1mg/mL vial] Amitriptyline HCl [Elavil 50mg 50 mg PO DAILY 08/20/17 08/20/17 History tablet] Celecoxib [Celebrex] 200 mg PO DAILY 08/20/17 08/20/17 History Dicyclomine HCl [Bentyl] 10 mg PO DAILY 08/20/17 08/20/17 History Duloxetine HCl [Cymbalta] 60 mg PO DAILY 08/20/17 08/20/17 History Gabapentin [Neurontin 600mg 600 mg PO TID 08/20/17 08/20/17 History tablet] Hydrocodone/Acetaminophen [[place] 1 each PO NEEDED PRN 08/20/17 08/20/17 History 10-325 Tablet] Levothyroxine Sodium [S
--- NOTE | 2017-09-02 14:03 | P.DS_ITS ---
General - General Admission date: 08/21/17 Discharge date: 08/28/17 HPI HPI: Mr. Fowler is a 67-year-old female with a history of follicular lymphoma, asthma , paralyzed middle lobe, and elevated hemidiaphragm, IBS, and a sleep disorder. She states she normally uses oxygen at 2 L/min at home. She states she had chemo last Friday and began feeling poorly after this. She has been nauseated and coughing and has also had a fever. She began getting more short of breath and was brought to the emergency room. She was felt to have a pneumonia and was admitted. She was placed on a Ventimask. She currently is treated by an oncologist at [facility] in [place], however she is unsure of his name. We have called her and he states she has been to [facility] and has seen Samuel and they were not satisfied with care, so they went to [place]. Objective Vital signs: Temp Pulse Resp BP Pulse Ox 97.9 F 95 H 24 111/44 83 L 08/28/17 15:43 08/28/17 15:43 08/28/17 15:43 08/28/17 15:43 08/28/17 15:43 Narrative: - Constitutional Comments: Does not appear to feel well - *Routine HEENT Exam Head: Present: normocephalic, atraumatic Eye: Present: EOMI, PERRL ENT: Present: mucous membranes dry - *Routine Neck Exam Present: supple, full ROM - *Routine Respiratory Exam Present: decreased breath sounds, wheezes - *Routine Cardiovascular Exam Present: tachycardia (regular rhythm) - *Routine Abdominal Exam Present: soft, normoactive bowel sounds. Absent: tenderness - *Routine Extremities Exam Absent: edema - *Routine Skin Exam Present: intact - *Routine Neurological Exam Present: normal speech (but confused at times) Hospital Course Hospital Course: She had been started on abx. When examined the am of the H&P, the patient was not wearing her oxygen mask and her sats were in the 50's. She was placed on BIPAP and a PCR respiratory panel was done revealing influenza A. She was started on tamiflu. Her blood gas improved on BIPAP. She improved slowly and was able to be weaned back to nasal oxygen. Her first few CXR's showed no improvement. Her CXR on 08/28/17 finally showed improvement in her bilateral pneumonia. Dr. Tello did speak with her physician from [facility] in [place], Dr Enmanuel King. They were in agreement to start her on Epogen. She was stable to be discharged and will f/u with Dr. Tello as well as her physician in [place]. DS: Diagnosis - Discharge Diagnosis (1) Influenza Status: Acute (2) Community acquired pneumonia Status: Acute (3) Follicular lymphoma Status: Chronic (4) Hypoxia Status: Acute (5) Fever Status: Acute (6) Thrombocytopenia Status: Acute (7) Asthma Status: Chronic Meds Home Medications Medication Instructions Recorded Confirmed Type Cyclophosphamide [Cytoxan 1gm vial] 1 gm IV ONCE 08/18/17 08/20/17 History Doxorubicin HCl 0 mg IV DIRECTED 08/18/17 08/20/17 History Ondansetron [Zofran 8mg ODT] 8 mg PO NEEDED PRN 08/18/17 08/20/17 History Pegfilgrastim [Neulasta 6mg/0.6mL 0 mg IV NEEDED PRN 08/18/17 08/20/17 History Syringe] Prochlorperazine Maleate 10 mg PO Q6H 08/18/17 08/20/17 History [Compazine 10mg tablet] Rituximab [Rituxan 100mg/10mL vial] 0 mg IV NEEDED PRN 08/18/17 08/20/17 History Vincristine Sulfate [vinCRISTINE 1 m
== END 2017-08-28 16:55 | disposition home or self-care (01) | DRG 153 ==
LOC: ER 08-21 00:45 → 2ND 08-21 00:50 → ICU 08-21 22:43 → 2ND 08-27 16:18
PROVIDERS: Physician Assistant; Admitting Provider Family Medicine; Emergency Provider Emergency Medicine; Family Provider Nurse Practitioner Family; PCP Nurse Practitioner Family; Visit Provider Family Medicine
DX: J11.1 Influenza due to unidentified influenza virus with other respiratory manifestations (principal); C82.90 Follicular lymphoma, unspecified, unspecified site; D69.6 Thrombocytopenia, unspecified; Z99.81 Dependence on supplemental oxygen; E78.5 Hyperlipidemia, unspecified; I10 Essential (primary) hypertension; Z96.651 Presence of right artificial knee joint; J45.909 Unspecified asthma, uncomplicated; R09.02 Hypoxemia; R51 Headache; Z79.01 Long term (current) use of anticoagulants; Z79.891 Long term (current) use of opiate analgesic; Z79.899 Other long term (current) drug therapy; Z88.6 Allergy status to analgesic agent; Z88.1 Allergy status to other antibiotic agents; Z88.5 Allergy status to narcotic agent; Z88.0 Allergy status to penicillin; Z88.2 Allergy status to sulfonamides; Z88.8 Allergy status to other drugs, medicaments and biological substances; Z79.51 Long term (current) use of inhaled steroids; Z87.891 Personal history of nicotine dependence; Z82.5 Family history of asthma and other chronic lower respiratory diseases; Z90.710 Acquired absence of both cervix and uterus; Z80.9 Family history of malignant neoplasm, unspecified; Z82.49 Family history of ischemic heart disease and other diseases of the circulatory system; Z83.49 Family history of other endocrine, nutritional and metabolic diseases; Z84.1 Family history of disorders of kidney and ureter; Z82.3 Family history of stroke
CPT/HCPCS: 36415; 71045; 71046; 71275; 80048; 80053; 80305; 80361; 82550; 82553; 82803; 83605; 84484; 85007; 85025; 87040; 87070; 87077; 87205; 87275; 87276; 87486; 87581; 87633; 87798; 93005; 93041; 94640; 94660; 94760; 94761; 96365; 96366; 96375; 99212; 99284; G0480; J0456; J0885; J1335; J2405; Q9967

== ENCOUNTER 2017-09-03 15:06 | Emergency (ER) | payer MEDICARE, SELFPAY ==
[2017-09-03 15:15] VITALS: BP 134/61; PULSE 92; RESP 24; TEMP 36.9; O2SAT 90; BMI 32.4
--- NOTE | 2017-09-03 15:56 | XR_ITS ---
XR chest portable HISTORY: ITS.REASON: SOB ORDERING PHYSICIAN: Biju Juarez MD PATIENT AGE: 67 years COMPARISON: 08/28/17 FINDINGS: Right subclavian MediPort catheter remains in place. No evidence of CHF. Persistent elevated right hemidiaphragm. No lobar consolidation or collapse. IMPRESSION: Elevated right hemidiaphragm, no acute finding
--- NOTE | 2017-09-03 16:06 | HMH.EDGENADL ---
ED Disposition Clinical Impression: Fatigue Qualifiers: Fatigue type: unspecified Qualified Code(s): R53.83 - Other fatigue Disposition: Home, Self-Care Condition on Discharge: Good Instructions: DI for Fatigue Additional Instructions: Continue current treatment. Follow up with Dr. Tello tomorrow if not improving. Referrals: Daniel Tello MD [Primary Care Provider] - - Critical Care Critical Care Time: No Attestation: On , the high probability of a clinically significant, sudden or life threatening deterioration of the following system(s) required my full and direct attention, intervention and personal management. The time I documented below is in addition to time spent performing reported procedures but includes the following listed in this critical care notation. Medical Decision Making Vital Signs: 09/03/17 15:15 Temperature 98.4 F Temperature Source Oral Pulse Rate [Right Radial] 92 H Respiratory Rate 24 Blood Pressure [Right Arm] 134/61 Blood Pressure Mean [Right Arm] 85 Blood Pressure Source [Right Arm] Automatic Cuff Blood Pressure Position [Right Arm] Sitting 02 Sat by Pulse Oximetry 90 L Oxygen Delivery Method Room Air - Lab Data Lab Results 09/03/17 16:02: WBC 7.8, RBC 3.14 L, Hgb 10.3 L, Hct 31.4 L, MCV 100.1 H, MCH 32.9 H, MCHC 32.9, RDW 19.5 H, Plt Count 617 H, MPV 7.1 L, Neut % (Auto) 82.1 H, Lymph % (Auto) 11.5, [place] % (Auto) 4.7, Eos % (Auto) 0.9, Baso % (Auto) 0.8, Neut # (Auto) 6.4, Lymph # (Auto) 0.9, [place] # (Auto) 0.4, Eos # (Auto) 0.1, Baso # (Auto) 0.1 09/03/17 16:02: Sodium 141, Potassium 4.2, Chloride 99, Carbon Dioxide 37 H, Anion Gap 9.2, BUN 21 H, Creatinine 0.95, Estimated Creat Clear 76, Estimated GFR 59, Est GFR ( Amer) 71, Glucose 197 H, Calcium 9.2, Total Bilirubin 0.3, AST 14 L, ALT 33, Alkaline Phosphatase 104, Total Protein 6.4, Albumin 3.2 L, Globulin 3.2, Albumin/Globulin Ratio 1.0 L 02/14/18 16:02: Lactic Acid 1.9 09/03/17 16:02: Troponin I < 0.02 09/03/17 17:00: Urine Color Yellow, Urine Appearance Clear, Urine pH 7.5, Ur Specific [place] 1.015, Urine Protein Negative, Urine Glucose (UA) Negative, Urine Ketones Negative, Urine Blood Negative, Urine Nitrate Negative, Urine Bilirubin Negative, Urine Urobilinogen 0.2, Ur Leukocyte Esterase Negative Result diagrams: 09/03/17 16:02 09/03/17 16:02 Orders (Tests/Meds): ED MEDICATIONS Discontinued Medications Generic Name Dose Route Start Last Admin Trade Name Freq PRN Reason Stop Dose Admin Sodium Chloride 1,000 ml 09/03/17 16:58 09/03/17 17:07 Sod Chlor 0.9% 1000ml Bag IV 09/03/17 16:59 1,000 ml BOLUS ONE Administration ORDERS Category Date Time Status Urinalysis and Microscopic Stat Lab 09/03/17 17:00 Results Blood Culture Stat Micro 09/03/17 16:02 Received ECG Request by /Yolis Stat Y 09/03/17 16:22 Ordered - Radiology Data #1 Image(s): Chest Elevated right diaphragm, no acute change. - ECG Data Tracing #1 EKG interpreted by Biju Juarez MD: Rhythm: sinus Rate: 83 [place]: normal Ectopy: Premature atrial contractions Conduction: normal ST Segment Changes: none T Wave Changes: none Q Waves: none No evidence of acute ischemia or injury - Jp Inquiry Pt receiving controlled substance: No Medical Decision Making Narrative: 5:59 PM: Patient states she just feels tired. Workup is unremarkable. Discussed results. She says she feels well enough to go home. General Adult HPI - General Chief complaint: Weakness Stated complaint: Feeling worse from being discharged from Hospital Mode of Arrival: Wheelchair Limitations: No Limitations Description of Symptoms (Recalled from ER Triage Doc. by RN): PT STATES SHE JUST DOESN'T FEEL GOOD. PT WAS RECENTLY ADMITTED FOR FLU/PNEUMONIA A COUPLE WEEKS AGO AND DISCHARGED ON 08/28/17 HOME WITH HOME HEALTH. PT STATES SHE HAS BEEN FEELING BETTER UNTIL TODAY. - History of Present Illness HPI na
[2017-09-03 16:29] LABS: Alanine Aminotransferase 33 U/L (12-78); Albumin Level 3.2 gm/dL (3.4-5.0); Alkaline Phosphatase 104 U/L (46-116); Anion Gap 9.2 mEq/L (5-15); Aspartate Amino Transferase 14 U/L (15-37); Bilirubin,Total 0.3 mg/dL (0.2-1.0); Blood Urea Nitrogen 21 mg/dL (7-18); Calcium 9.2 mg/dL (8.5-10.1); Carbon Dioxide 37 mmol/L (21.0-32.0); Chloride 99 mmol/L (98-107); Creatinine Clearance Estimated 76 mL/min (0-300); Creatinine,Serum 0.95 mg/dL (0.55-1.02); Estimated Glomerular Filt Rate 59 ml/min (>60); GFR (African American) 71 ML/MIN (>60); Globulin 3.2 gm/dl (1.3-3.2); Glucose 197 mg/dL (74-106); Potassium 4.2 mmoL/L (3.5-5.1); Sodium 141 mmol/L (136-145); Total Protein,Serum 6.4 gm/dL (6.4-8.2)
[2017-09-03 16:31] LABS: Basophils # 0.1 K/mm3 (0-0.2); Basophils % 0.8 % (0.1-2.0); Eosinophils # 0.1 K/mm3 (0.0-0.4); Eosinophils % 0.9 % (0.1-12.0); Hematocrit 31.4 % (37.0-47.0); Hemoglobin 10.3 g/dL (12.2-16.2); Lymphocytes # 0.9 K/mm3 (0.7-4.5); Lymphocytes % 11.5 K/mm3 (10-50); Mean Corpuscular HGB Conc 32.9 g/dL (31.8-35.4); Mean Corpuscular Hemoglobin 32.9 pg (27.0-31.2); Mean Corpuscular Volume 100.1 fl (81-99); Mean Platelet Volume 7.1 fl (7.4-10.4); Monocytes # 0.4 K/mm3 (0.1-1.0); Monocytes % 4.7 % (1.7-9.3); Neutrophils # 6.4 K/mm3 (1.8-7.8); Neutrophils % 82.1 % (37.0-80.0); Platelet Count 617 K/mm3 (142-424); Red Blood Count 3.14 M/mm3 (4.20-5.40); Red Cell Distribution Width 19.5 % (11.5-17.5); White Blood Count 7.8 K/mm3 (4.8-10.8)
[2017-09-03 16:33] LABS: Lactic Acid 1.9 mmol/L (0.4-2.0)
[2017-09-03 16:49] LABS: Troponin I < 0.02 ng/ml (0.00-0.06)
[2017-09-03 17:04] LABS: Microscopic, Urine URINE MICROSCOPIC (MICROSCOPIC)
[2017-09-03 17:07] LABS: Appearance,Urine CLEAR (Clear); Bilirubin,Urine Negative (Negative); Blood, Urine Negative (Negative); Color,Urine YELLOW (Yellow); Glucose,Urine (UA) Negative (Negative); Ketones,Urine Negative (Negative); Leukocyte Esterase,Urine Negative (Negative); Nitrate,Urine Negative (Negative); PH,Urine 7.5 (5.0-8.5); Protein,Urine Negative (Negative); Specific Gravity, Urine 1.015 (1.005-1.030); Urobilinogen,Urine 0.2 EU/dl (0.2)
[2017-09-03 18:07] LABS: Amorphous Sediment,Urine 1+ /lpf; Bacteria,Urine 2+ /lpf
[2017-09-03 18:27] VITALS: BP 135/82; PULSE 89; RESP 22; TEMP 37.3
== END 2017-09-03 18:28 | disposition home or self-care (01) ==
PROVIDERS: Emergency Provider Emergency Medicine; Family Provider Nurse Practitioner Family; PCP Family Medicine
DX: R53.83 Other fatigue (principal); R42 Dizziness and giddiness; C82.90 Follicular lymphoma, unspecified, unspecified site; J45.909 Unspecified asthma, uncomplicated; Z99.81 Dependence on supplemental oxygen; K21.9 Gastro-esophageal reflux disease without esophagitis; E78.5 Hyperlipidemia, unspecified; I10 Essential (primary) hypertension; Z79.899 Other long term (current) drug therapy; Z88.0 Allergy status to penicillin; Z88.6 Allergy status to analgesic agent; Z88.8 Allergy status to other drugs, medicaments and biological substances
CPT/HCPCS: 71045; 80053; 81001; 83605; 84484; 85025; 87040; 87077; 87086; 87186; 93005; 93041; 96365; 96367; 99284

== ENCOUNTER → 2017-09-11 15:51 | Outpatient (CLI) | payer MEDICARE, SELFPAY ==
--- NOTE | 2017-09-11 15:57 | XR_ITS ---
XR chest 2V HISTORY: ITS.REASON: PNEUMONIA ORDERING PHYSICIAN: Rika Enciso PATIENT AGE: 67 years COMPARISON: 09/03/2017 FINDINGS: Right hemidiaphragm is elevated as before. There is persistent patchy density in both lower lobes similar to the exam on 08/24/2017 and may be related to atelectasis or infiltrate. No evidence of CHF. Mediport catheter remains in place. No obvious effusion. IMPRESSION: Persistent bibasilar airspace disease consistent with atelectasis and/or infiltrate
== END ==
PROVIDERS: PCP Nurse Practitioner Family; Visit Provider Nurse Practitioner Family
DX: J16.8 Pneumonia due to other specified infectious organisms (principal)
CPT/HCPCS: 71046

== ENCOUNTER 2017-09-25 19:37 | Emergency (ER) | payer MEDICARE, SELFPAY ==
--- NOTE | 2017-09-25 20:18 | PC.NURSE ---
PT CAME TO ER , WANTING TO GET SOME BLOOD WORK TO FIND OUT IF THE STAPH SHE HAD IN HER PORT WAS CLEARED UP. I ADVISED HER THAT THAT WAS SOMETHING THAT HAD TO BE SENT OFF AND SEE IF IT GREW STAPH, I TOLD HER THERE WAS NOTHING WE COULD DO TONIGHT TO PROVE THAT THE STAPH WAS GONE FROM HER PORT. PT WAS ADMITTED FOR 3 DAYS AT AND SHE HAS NOW FINISHED ALL HER ATB'S AND SHE JUST WANTING TO KNOW IF IT WAS GONE . PT DENIES ANY SYMPTOMS, PORT IS FINE NO REDNESS OR SORENESS TO THAT, PT HAS DECIDED SHE WAS GOING TO F/U WITH PCP TOMORROW.
[2017-09-25 20:30] VITALS: BP 0/0; PULSE 0; RESP 0; TEMP -17.7; TEMP 0
== END 2017-09-25 20:29 | disposition left against medical advice (07) ==
LOC: ER 20:19
PROVIDERS: Emergency Provider Emergency Medicine; Family Provider Nurse Practitioner Family; PCP Nurse Practitioner Family
DX: Z53.29 Procedure and treatment not carried out because of patient's decision for other reasons (principal)
CPT/HCPCS: 99211

== ENCOUNTER → 2017-10-27 13:01 | Outpatient (POV) | payer MEDICARE, SELFPAY ==
[2017-10-27 13:08] VITALS: BP 191/89; PULSE 91; RESP 18; TEMP 36.6; O2SAT 90; BMI 73.3
--- NOTE | 2017-10-27 13:13 | HMH.PAINSOAP ---
[facility] Pain Management SOAP Note Subjective:: Patient is a pleasant 67-year-old white female who presents today for medication refills. Patient is currently being treated for pain secondary to degenerative disc disease of the lumbar spine and lumbar radiculopathy. Patient is done well with lumbar epidural steroid injections in the past. Patient is currently undergoing chemotherapy for lymphoma. Patient has a new oncologist. Patient is wondering if she can have another epidural steroid injection. I discussed with her that I would need permission from her oncologist to move forward with this request. Patient is also asked about increasing her pain medication. I discussed with her that I am not opposed to this however I would like to get the opinion of her oncologist. Patient is going to her oncologist this month. Patient states that her pain medication does reduce her pain by at least 50-60%. Her Cole #[id number] reviewed and appropriate. Patient's UDS has been appropriate in the past. Patient is being medically managed with [place] 10 mg 1 4 times daily. Patient denies any side effects to this medication. ROS General: no recent weight change, no fever, no sleep disturbances Respiratory: no cough, no shortness of air, no recurring pulmonary infections Cardiovascular/Peripheral Vascular: No chest pain, No palpitations, no edema, no shortness of breath. Gastrointestinal: no incontinence, normal bowel movements reported Genitourinary: no incontinence Musculoskeletal: Back pain, leg pain Psychiatric: normal mood/ affect, Neurological: [denies weakness in extremities], [denies balance issues] Objective:: Physical Exam General: Alert and oriented x3, no acute distress, pleasant and cooperative, [on room air] Lungs: Resps E/U, Symmetrical chest expansion, Eyes: PERRL Musculoskeletal: Flexion and extension of lumbar spine somewhat guarded secondary to pain, deep tendon reflexes normal, strength in upper and lower extremities [5/5], slightly antalgic gait noted Neurological: speech clear, 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 4 times daily. We will give HER-2 prescriptions. She can picket labor union her third month prescription in the interim. Patient's Cole and UDS both reviewed and appropriate. Dr. Small has reviewed this chart and agrees with this plan of care. Patient is going to get permission from her oncologist prior to us making any medicine changes or scheduling of the lumbar epidural injection. Patient has been prescribed a controlled substance after being counseled on the medication, medication safety, and possible side effects. COLE report has been obtained and reviewed prior to prescription and found to be appropriate. Opioid contract was reviewed and signed by the patient, and that they have agreed to all of the terms set forth by our compliance program. This note was dictated using voice recognition software and may contain errors or omissions
--- NOTE | 2017-10-27 13:27 | P.CONS_ITS ---
[facility] Pain Management SOAP Note Subjective:: Patient is a pleasant 67-year-old white female who presents today for medication refills. Patient is currently being treated for pain secondary to degenerative disc disease of the lumbar spine and lumbar radiculopathy. Patient is done well with lumbar epidural steroid injections in the past. Patient is currently undergoing chemotherapy for lymphoma. Patient has a new oncologist. Patient is wondering if she can have another epidural steroid injection. I discussed with her that I would need permission from her oncologist to move forward with this request. Patient is also asked about increasing her pain medication. I discussed with her that I am not opposed to this however I would like to get the opinion of her oncologist. Patient is going to her oncologist this month. Patient states that her pain medication does reduce her pain by at least 50-60%. Her Cole #[id number] reviewed and appropriate. Patient's UDS has been appropriate in the past. Patient is being medically managed with [place] 10 mg 1 4 times daily. Patient denies any side effects to this medication. ROS General: no recent weight change, no fever, no sleep disturbances Respiratory: no cough, no shortness of air, no recurring pulmonary infections Cardiovascular/Peripheral Vascular: No chest pain, No palpitations, no edema, no shortness of breath. Gastrointestinal: no incontinence, normal bowel movements reported Genitourinary: no incontinence Musculoskeletal: Back pain, leg pain Psychiatric: normal mood/ affect, Neurological: [denies weakness in extremities], [denies balance issues] Objective:: Physical Exam General: Alert and oriented x3, no acute distress, pleasant and cooperative, [ on room air] Lungs: Resps E/U, Symmetrical chest expansion, Eyes: PERRL Musculoskeletal: Flexion and extension of lumbar spine somewhat guarded secondary to pain, deep tendon reflexes normal, strength in upper and lower extremities [5/5], slightly antalgic gait noted Neurological: speech clear, 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 4 times daily. We will give HER-2 prescriptions. She can pickle maker her third month prescription in the interim. Patient's Cole and UDS both reviewed and appropriate. Dr. Small has reviewed this chart and agrees with this plan of care. Patient is going to get permission from her oncologist prior to us making any medicine changes or scheduling of the lumbar epidural injection. Patient has been prescribed a controlled substance after being counseled on the medication, medication safety, and possible side effects. COLE report has been obtained and reviewed prior to prescription and found to be appropriate. Opioid contract was reviewed and signed by the patient, and that they have agreed to all of the terms set forth by our compliance program. This note was dictated using voice recognition software and may contain errors or omissions
== END ==
PROVIDERS: Family Provider Nurse Practitioner Family; PCP Nurse Practitioner Family; Visit Provider Clinical Nurse Specialist Family Health
DX: M54.16 Radiculopathy, lumbar region (principal)
CPT/HCPCS: 99212

== ENCOUNTER → 2017-10-31 10:18 | Outpatient (CLI) | payer MEDICARE, SELFPAY ==
[2017-10-31 10:52] LABS: Blood Urea Nitrogen 13 mg/dL (7-18); Creatinine,Serum 0.66 mg/dL (0.55-1.02); Estimated Glomerular Filt Rate 89 ml/min (>60); GFR (African American) 108 ML/MIN (>60)
--- NOTE | 2017-10-31 11:00 | CT_ITS ---
CT chest w con COMPARISON: CT angiogram of the chest 08/20/2017 HISTORY: Known follicular lymphoma, on chemotherapy, cough TECHNIQUE: Multiaxial scans obtained from the thoracic inlet the hemidiaphragms and were performed with IV contrast. Sagittal and coronal reformats were evaluated as well. FINDINGS: The lung ace are well expanded. There is excellent vascular opacification. Again noted is the chronically elevated right hemidiaphragm. There is minimal atelectasis and/or scarring just above the elevated right hemidiaphragm which has been noted previously. The left lung field is clear throughout. The minimal pneumonic infiltrates in the upper lobe seen previously have resolved. Overall cardiac size is normal and the vascularity is normal. There is no abnormal superior mediastinal or hilar lymphadenopathy. There is no abnormal axillary adenopathy. There is a [id number] sized hiatal hernia. There are prominent multilevel degenerative changes of the mid and lower thoracic spine. IMPRESSION: Stable chronic findings as described, no acute pneumonic infiltrate seen
--- NOTE | 2017-10-31 13:22 | HMH.ITSHM ---
SEE PRIO LIST
== END ==
PROVIDERS: Family Provider Nurse Practitioner Family; PCP Nurse Practitioner Family; Visit Provider Nurse Practitioner Family
DX: R05 Cough (principal)
CPT/HCPCS: 36415; 71260; 82565; 84520; Q9967

== ENCOUNTER → 2018-07-07 13:47 | Outpatient (POV) | payer MEDICARE, SELFPAY | PROVIDERS: Visit Provider Dermatology | DX: Z00.00 Encounter for general adult medical examination without abnormal findings (principal) ==

== ENCOUNTER → 2018-09-15 13:59 | Outpatient (CLI) | payer MEDICARE, SELFPAY ==
--- NOTE | 2018-09-15 14:09 | US_ITS ---
US Arterial Ankle Brachial Ind History: Previous smoker, hypertension, bilateral rest pain, bilateral claudication ORDERING PHYSICIAN: Rika Enciso PATIENT AGE: 68 years TECHNIQUE: Segmental pressures obtained of both right and left leg. These are compared to brachial blood pressure to yield index at each level sampled including summary RD. The data sheets from the procedure are available in PACS FINDINGS THIS REPORT WAS GENERATED ORIGINALLY ON 09/16/2018 AND WAS CONFIRMED AGAIN ON 09/18/2018 BUT FOR SOME REASON WAS NOT AVAILABLE ON PACS AND IS REDICTATED AGAIN TODAY FOR THE THIRD TIME ON 09/21/2018. Rest study only performed today No prior studies available for comparison. Blood pressures reported are in millimeters mercury. RIGHT LEG RD = 1.0. RIGHT LEG TBI=0.5 Brachial BP: 163 Thigh BP: Not obtained due to patient request Calf BP: 172 Ankle PT: 172 Ankle DP : 156 Digit =[address] = 1.0 LEFT LEG TBI= 0.6 Brachial BPD: 165 Thigh BP: 170 Calf BP: 168 Ankle PT:172 Ankle DP: 180 Digit = 90 Pulses and waveforms: Normal IMPRESSION: 1. Normal ABIs. 2. Slightly low TBI suggesting small vessel disease
== END ==
PROVIDERS: PCP Nurse Practitioner Family; Visit Provider Nurse Practitioner Family
DX: I73.9 Peripheral vascular disease, unspecified (principal)
CPT/HCPCS: 93922

== ENCOUNTER → 2018-12-07 09:49 | Outpatient (CLI) | payer MEDICARE, SELFPAY ==
--- NOTE | 2018-12-07 09:58 | NVE_ITS ---
Venous Exam Indications: 729.5 Pain in limb. IMPRESSIONS No evidence of deep or superficial vein thrombosis involving the left lower extremity History: Left lower extremity pain. Swelling of the left lower extremity. PMH: Deep vein thrombosis. Patient has a history of follicular lymphoma. Currently in remission. Patient takes Eliquis twice daily because of history of DVT 2017. Left lower extremity venous duplex evaluation. Doppler flow study including spectral analysis, color and mitchell scale imaging. Location: Vascular laboratory. Patient status: Outpatient. Tables: Venous flow and imaging: + +-------+ + Location Overall Flow properties + +-------+ + Left common femoral Patent Normal phasicity; spontaneous; normal augmentation; compressible + +-------+ + Left saphenofemoral junction Patent Compressible + +-------+ + Left profunda femoral Patent Compressible + +-------+ + Left femoral Patent Normal phasicity; spontaneous; normal augmentation; compressible + +-------+ + Left greater saphenous Patent Normal phasicity; spontaneous; normal augmentation; compressible + +-------+ + Left popliteal Patent Normal phasicity; spontaneous; normal augmentation; compressible + +-------+ + Left posterior tibial Patent Compressible + +-------+ + Left peroneal Patent Compressible + +-------+ + Left gastrocnemius Patent Compressible + +-------+ + Left soleal Patent Compressible + +-------+ + (Report amended ) Electronically signed by: Jeremias Bhardwaj [id number]
--- NOTE | 2018-12-07 10:29 | MR_ITS ---
MR lumbar spine wo con, MR 3-d myelogram/MRCP HISTORY: LT sided LBP with LT hip and leg pain to foot. Numbness and tingling in foot and leg. [id number]. ITS.REASON: LOW BACK PAIN ORDERING PHYSICIAN: Rika Enciso APRN PATIENT AGE: 68 years Comparison: MRI 05-19-15. TECHNIQUE: Standard multiplanar multiecho sequences are performed without contrast. 3-D MIP and myelographic images are also rendered and reviewed FINDINGS: There is normal alignment. The spinal cord ends at the T12-L1 level. T11-T12: Mild degenerative disc disease. Anterior osteophytes. T12-L1: Mild degenerative disc disease. L1-L2: Degenerative disc disease with bulging disc. 3 mm retrolisthesis of L1. Mild bilateral lateral recess and foraminal narrowing. L2-L3: Severe degenerative disc disease with bulging disc along with facet and ligamentum flavum hypertrophy. There is 5 mm retrolisthesis of L2. There is severe left-sided foraminal narrowing and moderate right foraminal narrowing from facet and uncovertebral hypertrophy in the bulging disc. Previously there was a small left paracentral/foraminal disc protrusion which is not demonstrated on today's exam. The degenerative disc disease has somewhat compressed at this level however. L3-L4: Mild facet and ligamentum flavum hypertrophy with mild bilateral lateral recess and foraminal narrowing. L4-5: Moderate to severe facet and ligamentum flavum hypertrophy with severe bilateral lateral recess and foraminal narrowing greater on the right. There is canal stenosis at this level.. These findings have somewhat progressed compared to the previous exam. L5-S1: Degenerative disc disease with bulging disc and mild facet ligamentum flavum hypertrophy with mild left-sided foraminal narrowing. No extruded herniated disc evident. IMPRESSION: There is multilevel lumbar spondylosis with degenerative disc disease, bulging disc, and facet and ligamentum flavum hypertrophy with lateral recess and foraminal narrowing. These findings have somewhat progressed compared to the previous exam. PLEASE SEE ABOVE FOR DETAILED DESCRIPTION AT EACH LEVEL. There is canal stenosis at L4-L5 which is also somewhat worse. No extruded herniated disc
== END ==
PROVIDERS: PCP Nurse Practitioner Family; Visit Provider Nurse Practitioner Family
DX: M79.605 Pain in left leg (principal); M54.5 Low back pain
CPT/HCPCS: 72148; 76376; 93971

== ENCOUNTER → 2019-04-15 10:46 | Outpatient (POV) | payer MEDICARE, SELFPAY ==
[2019-04-15 11:02] VITALS: BP 155/87; PULSE 84; O2SAT 94; BMI 30.1
--- NOTE | 2019-04-15 11:24 | HMH.PAINSOAP ---
[facility] Pain Management SOAP Note Subjective:: Service 04/15/2019 Patient is a pleasant 67-year-old white female who presents today for medication refills. 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 Patient has also been undergoing treatment for lymphoma. She says that she has been receiving her medications and lumbar epidural steroid injections at her cancer treatment center in [place]. She has been in remission for the last 6 months. She says that she was traveling to [place] every 2 months to get her medications. She would like to resume care with the clinic here. Patient previously took [place] 10 mg 1 tablet p.o. 4 times daily when she was seen in the clinic and October 2017. Since then, her oncologist has changed her dosing to [place] 10 mg up to 6 times daily. Patient does admit that she does not always take this amount of medication, as she says she does not always need that much medication for her pain. She does rate her pain a 4 out of 10 today. [facility] #[id number] has been reviewed and is appropriate, along with her previous urine drug screens. Patient does say that the medication gives her about 60 to 70% relief. She denies any side effects from medications. Review of Systems General: No recent weight changes, no fever, no sleep disturbances Respiratory: No cough, no shortness of air, no recurring pulmonary infections Cardiovascular/peripheral vascular: No chest pain, no palpitations, no edema, no shortness of breath Gastrointestinal: No new onset incontinence, normal bowel movements reported Genitourinary: No new onset incontinence Musculoskeletal: Back pain Psychiatric: Normal mood/affect Neurological: [Denies weakness in extremities], [denies balance issues] Objective:: Physical exam General: Alert and oriented x3, no acute distress, pleasant and cooperative, [on room air] Lungs: Respirations even and unlabored, symmetrical chest expansion Eyes: PERRL Musculoskeletal: Flexion and extension of lumbar spine somewhat guarded secondary to pain, deep tendon reflexes normal, strength in upper and lower extremities [5/5], slightly antalgic gait noted Neurological: 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 We will give her [place] 10 mg 1 tablet p.o. up to 6 times daily. We will give the patient 2 months worth of medication and she can picker/puller her third month in the interim. We will see her back in the clinic in 3 months. Patient has been advised to contact the clinic if she has any concerns before her next appointment. Dr. Small has reviewed this note and agrees with this plan of care. This note was dictated using voice recognition software and make contain errors or omissions. [facility] History Medical History: Reports:: Asthma, Cancer (follicular lymphoma), Hyperlipidemia, Hypertension Denies:: Diabetes Mellitus Type 1, Diabetes Mellitus Type 2, MRSA *Have you ever received a pneumonia vaccine?: Yes *Have you received a flu vaccine this season?: Yes Other Medical History: Reports: Chemotherapy Laterality Cases: Right: Arthroscopy Knee, Bilateral: Tonsillectomy Other Surgeries: Yes: Cancer Surgery, Colonoscopy, EGD, Hysterectomy-Partial, Plastic Surgery Amputation: No Fractures: Yes - *Social History Smoking Status: Former smoker Tobacco Type: cigarettes #Yrs smoked (if former smoker): 20 Alcohol Intake: never *Occupational Status:: other Housing: house Household Members: spouse *Travel in the last 8 weeks: None Family Hx:: Asthma, Cancer, Coronary Artery Disease, Heart Attack, Hyperlipidemia, Hypertension, Kidney Disease, Stroke, Thyroid Disorder
--- NOTE | 2019-04-15 11:28 | P.CONS_ITS ---
[facility] Pain Management SOAP Note Subjective:: Service 04/15/2019 Patient is a pleasant 67-year-old white female who presents today for medication refills. 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 Patient has also been undergoing treatment for lymphoma. She says that she has been receiving her medications and lumbar epidural steroid injections at her cancer treatment center in [place]. She has been in remission for the last 6 months. She says that she was traveling to [place] every 2 months to get her medications. She would like to resume care with the clinic here. Patient previously took [place] 10 mg 1 tablet p.o. 4 times daily when she was seen in the clinic and October 2017. Since then, her oncologist has changed her dosing to [place] 10 mg up to 6 times daily. Patient does admit that she does not always take this amount of medication, as she says she does not always need that much medication for her pain. She does rate her pain a 4 out of 10 today. [facility] #[id number] has been reviewed and is appropriate, along with her previous urine drug screens. Patient does say that the medication gives her about 60 to 70% relief. She denies any side effects from medications. Review of Systems General: No recent weight changes, no fever, no sleep disturbances Respiratory: No cough, no shortness of air, no recurring pulmonary infections Cardiovascular/peripheral vascular: No chest pain, no palpitations, no edema, no shortness of breath Gastrointestinal: No new onset incontinence, normal bowel movements reported Genitourinary: No new onset incontinence Musculoskeletal: Back pain Psychiatric: Normal mood/affect Neurological: [Denies weakness in extremities], [denies balance issues] Objective:: Physical exam General: Alert and oriented x3, no acute distress, pleasant and cooperative, [on room air] Lungs: Respirations even and unlabored, symmetrical chest expansion Eyes: PERRL Musculoskeletal: Flexion and extension of lumbar spine somewhat guarded secondary to pain, deep tendon reflexes normal, strength in upper and lower extremities [5/5], slightly antalgic gait noted Neurological: Speech clear, orthopedic radiologic technologist equal, no gross sensory deficit Assessment:: Degenerative disc disease lumbar spine with lumbar radiculopathy, pain secondary to lymphoma, facet arthropathy Plan:: We will resume care of the patient. We will give her [place] 10 mg 1 tablet p.o. up to 6 times daily. 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 We will see her back in the clinic in 3 months. Patient has been advised to contact the clinic if she has any concerns before her next appointment. Dr. Small has reviewed this note and agrees with this plan of care. This note was dictated using voice recognition software and make contain errors or omissions. [facility] History Medical History: Reports:: Asthma, Cancer (follicular lymphoma), Hyperlipidemia, Hypertension Denies:: Diabetes Mellitus Type 1, Diabetes Mellitus Type 2, MRSA *Have you ever received a pneumonia vaccine?: Yes *Have you received a flu vaccine this season?: Yes Other Medical History: Reports: Chemotherapy Laterality Cases: Right: Arthroscopy Knee, Bilateral: Tonsillectomy Other Surgeries: Yes: Cancer Surgery, Colonoscopy, EGD, Hysterectomy-Partial, Plastic Surgery Amputation: No Fractures: Yes - *Social History Smoking Status: Former smoker Tobacco Type: cigarettes #Yrs smoked (if former smoker): 20 Alcohol Intake: never *Occupational Status:: other
== END ==
PROVIDERS: PCP Family Medicine; Visit Provider Clinical Nurse Specialist Family Health
DX: C85.90 Non-Hodgkin lymphoma, unspecified, unspecified site (principal); M51.16 Intervertebral disc disorders with radiculopathy, lumbar region; M54.06 Panniculitis affecting regions of neck and back, lumbar region
CPT/HCPCS: 99212

== ENCOUNTER → 2019-05-24 09:49 | Outpatient (POV) | payer MEDICARE, SELFPAY ==
[2019-05-24 10:07] VITALS: BP 167/74; PULSE 88; RESP 18; O2SAT 98; BMI 30.1
--- NOTE | 2019-05-25 09:58 | HMH.PAINSOAP ---
[facility] Pain Management SOAP Note Subjective:: Patient is a pleasant 68-year-old white female who presents today for follow-up. Patient is currently on [place] secondary to pain that she has had since her cancer diagnosis. She was at a cancer pain center in [place] where she was receiving epidural injections and she states they helped for short amount of time however she is having difficulty standing and walking for long periods of time. 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 She rates her pain today an 8 out of 10 ROS General: no recent weight change, no fever, no sleep disturbances Respiratory: no cough, no shortness of air, no recurring pulmonary infections Cardiovascular/Peripheral Vascular: No chest pain, No palpitations, no edema, no shortness of breath. Gastrointestinal: no new onset incontinence, normal bowel movements reported Genitourinary: no new onset incontinence Musculoskeletal: Back pain, leg pain Psychiatric: normal mood/ affect Neurological: [denies new onset weakness in extremities], [denies new onset balance issues] Objective:: Physical Exam General: Alert and oriented x3, no acute distress, pleasant and cooperative, [on room air] Lungs: Resps E/U, Symmetrical chest expansion, Eyes: PERRL Musculoskeletal: Flexion and extension of lumbar spine somewhat guarded secondary to pain, deep tendon reflexes normal, strength in upper and lower extremities [5/5], [abnormal gait noted] Neurological: speech clear, construction management assistant equal, no gross sensory deficits Assessment:: 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 Plan:: We will set the patient up for an L4-L5 lumbar epidural steroid injection along with a epidurogram to help determine if she is a candidate for a mild procedure. She has permission to be off of her Eliquis. I will follow-up with her after her injection reassess her symptoms at that time she is been instructed to call the office if she has any issues prior to her next appointment. Dr. Small has reviewed this note and agrees with this plan of care. This note was dictated using voice recognition software and may contain errors or omissions [facility] History I have reviewed the patient's past medical history: Yes Medical History: Reports:: Asthma, Cancer (follicular lymphoma), Hyperlipidemia, Hypertension Denies:: Diabetes Mellitus Type 1, Diabetes Mellitus Type 2, MRSA *Have you ever received a pneumonia vaccine?: Yes *Have you received a flu vaccine this season?: Yes Other Medical History: Reports: Chemotherapy Laterality Cases: Right: Arthroscopy Knee, Bilateral: Tonsillectomy Other Surgeries: Yes: Cancer Surgery, Colonoscopy, EGD, Hysterectomy-Partial, Plastic Surgery Amputation: No Fractures: Yes - *Social History Smoking Status: Former smoker Tobacco Type: cigarettes #Yrs smoked (if former smoker): 20 Alcohol Intake: never *Occupational Status:: other Housing: house Household Members: spouse *Travel in the last 8 weeks: None Family Hx:: Asthma, Cancer, Coronary Artery Disease, Heart Attack, Hyperlipidemia, Hypertension, Kidney Disease, Stroke, Thyroid Disorder
--- NOTE | 2019-05-25 10:03 | P.CONS_ITS ---
[facility] Pain Management SOAP Note Subjective:: Patient is a pleasant 68-year-old white female who presents today for follow-up. Patient is currently on [place] secondary to pain that she has had since her cancer diagnosis. She was at a cancer pain center in [place] where she was receiving epidural injections and she states they helped for short amount of time however she is having difficulty standing and walking for long periods of time. 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 She rates her pain today an 8 out of 10 ROS General: no recent weight change, no fever, no sleep disturbances Respiratory: no cough, no shortness of air, no recurring pulmonary infections Cardiovascular/Peripheral Vascular: No chest pain, No palpitations, no edema, no shortness of breath. Gastrointestinal: no new onset incontinence, normal bowel movements reported Genitourinary: no new onset incontinence Musculoskeletal: Back pain, leg pain Psychiatric: normal mood/ affect Neurological: [denies new onset weakness in extremities], [denies new onset balance issues] Objective:: Physical Exam General: Alert and oriented x3, no acute distress, pleasant and cooperative, [on room air] Lungs: Resps E/U, Symmetrical chest expansion, Eyes: PERRL Musculoskeletal: Flexion and extension of lumbar spine somewhat guarded secondary to pain, deep tendon reflexes normal, strength in upper and lower extremities [5/5], [abnormal gait noted] Neurological: speech clear, project director equal, no gross sensory deficits Assessment:: 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 Plan:: We will set the patient up for an L4-L5 lumbar epidural steroid injection along with a epidurogram to help determine if she is a candidate for a mild procedure. She has permission to be off of her Eliquis. I will follow-up with her after her injection reassess her symptoms at that time she is been instructed to call the office if she has any issues prior to her next appointment. Dr. Small has reviewed this note and agrees with this plan of care. This note was dictated using voice recognition software and may contain errors or omissions [facility] History I have reviewed the patient's past medical history: Yes Medical History: Reports:: Asthma, Cancer (follicular lymphoma), Hyperlipidemia, Hypertension Denies:: Diabetes Mellitus Type 1, Diabetes Mellitus Type 2, MRSA *Have you ever received a pneumonia vaccine?: Yes *Have you received a flu vaccine this season?: Yes Other Medical History: Reports: Chemotherapy Laterality Cases: Right: Arthroscopy Knee, Bilateral: Tonsillectomy Other Surgeries: Yes: Cancer Surgery, Colonoscopy, EGD, Hysterectomy-Partial, Plastic Surgery Amputation: No Fractures: Yes - *Social History Smoking Status: Former smoker Tobacco Type: cigarettes #Yrs smoked (if former smoker): 20 Alcohol Intake: never *Occupational Status:: other Housing: house Household Members: spouse *Travel in the last 8 weeks: None Family Hx:: Asthma, Cancer, Coronary Artery Disease, Heart Attack, Hyperlipidemia, Hypertension, Kidney Disease, Stroke, Thyroid Disorder
--- NOTE | 2019-06-09 10:08 | PC.NURSE ---
APPROVAL FOR PT TO HOLD ELIQUIS 5 DAYS PRIOR TO PROCEDURES OBTAINED FROM DR GREEN VIA [facility] AT ONCOLOGY CLINIC. DR GREEN PREFERS PT HOLD ELIQUIS 2-3 DAYS AFTER PROCEDURE WELL. V/U.
--- NOTE | 2019-06-09 10:11 | PC.NURSE ---
DR GREEN PHONE # [phone] FAX # [phone]
== END ==
PROVIDERS: PCP Family Medicine; Visit Provider Clinical Nurse Specialist Family Health
DX: M48.062 Spinal stenosis, lumbar region with neurogenic claudication (principal); M46.06 Spinal enthesopathy, lumbar region; M51.36 Other intervertebral disc degeneration, lumbar region
CPT/HCPCS: 99212

== ENCOUNTER → 2019-05-25 12:53 | Outpatient (POV) | payer MEDICARE, SELFPAY | PROVIDERS: Visit Provider Dermatology | DX: Z00.00 Encounter for general adult medical examination without abnormal findings (principal) ==

== ENCOUNTER → 2019-07-05 13:00 | Outpatient (POV) | payer MEDICARE, SELFPAY ==
[2019-07-05 13:22] VITALS: BP 172/72; PULSE 84; RESP 18; O2SAT 99; BMI 29.6
--- NOTE | 2019-07-05 13:34 | HMH.PAINSOAP ---
[facility] Pain Management SOAP Note Subjective:: Patient is a very pleasant 68-year-old white female who presents today for follow-up after a mild procedure and a lumbar epidural steroid injection at L4-L5. Patient is being treated for low back pain with lumbar radiculopathy symptoms, as well as spinal stenosis with neurogenic claudication symptoms. Patient underwent a mild procedure and says that she got approximately 80% relief, however, she is having some increased pain with ambulation and prolonged standing. 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 Patient says that she did undergo 1 epidural steroid injection and did get approximately 60% relief for 2 weeks. Her pain has returned. Patient is requesting to have another epidural steroid injection. She says that she understands she will need to stop taking the injections at some point, but says that she would like to get through the holidays out pain. She is currently on Eliquis. She does not take any type of anti-inflammatory. She does perform a home stretching program. Patient rates her pain a 6 out of 10 today. Review of Systems General: No recent weight changes, no fever, no sleep disturbances Respiratory: No cough, no shortness of air, no recurring pulmonary infections Cardiovascular/peripheral vascular: No chest pain, no palpitations, no edema, no shortness of breath Gastrointestinal: No new onset incontinence, normal bowel movements reported Genitourinary: No new onset incontinence Musculoskeletal: Low back pain Psychiatric: Normal mood/affect Neurological: [Denies weakness in extremities], [denies balance issues] Objective:: Physical exam General: Alert and oriented x3, no acute distress, pleasant and cooperative, [on room air] Lungs: Respirations even and unlabored, symmetrical chest expansion Eyes: PERRL Musculoskeletal: Flexion and extension of lumbar spine somewhat guarded secondary to pain, deep tendon reflexes normal, strength in upper and lower extremities [5/5], [abnormal gait noted] Neurological: Speech clear, ruffling hemmer automatic equal, no gross sensory deficit Assessment:: Degenerative disc disease lumbar spine with lumbar radiculopathy symptoms, spinal stenosis with neurogenic claudication symptoms Plan:: The patient and I did have a long discussion concerning epidural steroid injections. We will schedule her for a lumbar epidural steroid injection at L4-L5. She understands that she does need to allow time for her process following her procedure. She says that she would like to undergo 1 more epidural steroid injection. Following this injection, she understands that we will need to wait for any further injection therapy at this time. She is in agreement. Patient also understood and stands that she will need to hold her Eliquis. We will order the patient diclofenac gel 1% 4 g topical 4 times daily. She is not able to take oral anti-inflammatories due to taking Eliquis. She will continue with a home stretching program. She has been instructed to contact clinic if she has any concerns before next appointment. Dr. Small has reviewed this note and agrees with this plan of care. This note was dictated using voice recognition software and make contain errors or omissions. [facility] History I have reviewed the patient's past medical history: Yes Medical History: Reports:: Asthma, Cancer (lymphoma), Diabetes Mellitus Type 2, Hyperlipidemia, Hypertension Denies:: Diabetes Mellitus Type 1, Internal Pacemaker, MRSA, Seizures *Have you ever received a pneumonia vaccine?: Yes *Have you received a flu vaccine this season?: Yes Other Medical History: Reports: Chemotherapy. Denies: Blood Transfusion Reaction Laterality Cases: Right: Arthroscopy Knee, Bilateral: Tonsillectomy Other Surgeries: Yes: Cancer Surgery, Colonoscopy, EGD, Hysterectomy-Partial, Plastic Surgery. No: Pacemaker Amputation: No Fractures: Yes - *Social History Smoking Status
== END ==
PROVIDERS: PCP Family Medicine; Visit Provider Clinical Nurse Specialist Family Health
DX: M51.16 Intervertebral disc disorders with radiculopathy, lumbar region (principal); M48.062 Spinal stenosis, lumbar region with neurogenic claudication
CPT/HCPCS: 99212

== ENCOUNTER → 2019-08-09 10:53 | Outpatient (POV) | payer MEDICARE, SELFPAY ==
[2019-08-09 11:11] VITALS: BP 174/86; PULSE 76; RESP 18; O2SAT 99; BMI 29.6
--- NOTE | 2019-08-09 11:40 | P.CONS_ITS ---
[facility] Pain Management SOAP Note Subjective:: Patient is a pleasant 69-year-old white female who presents today for follow-up after lumbar epidural steroid injection. Patient is doing well rating her pain a 5 out of 10. She is also on [place] 10 mg 1 p.o. 6 times a day. [facility] #[id number] reviewed and appropriate. Urine drug screens have been appropriate. She denies side effects from medication. ROS General: no recent weight change, no fever, no sleep disturbances Respiratory: no cough, no shortness of air, no recurring pulmonary infections Cardiovascular/Peripheral Vascular: No chest pain, No palpitations, no edema, no shortness of breath. Gastrointestinal: no new onset incontinence, normal bowel movements reported Genitourinary: no new onset incontinence Musculoskeletal: Back pain, leg pain Psychiatric: normal mood/ affect Neurological: [denies new onset weakness in extremities], [denies new onset balance issues] Objective:: Physical Exam General: Alert and oriented x3, no acute distress, pleasant and cooperative, [on room air] Lungs: Resps E/U, Symmetrical chest expansion, Eyes: PERRL Musculoskeletal: Flexion and extension of lumbar spine somewhat guarded secondary to pain, deep tendon reflexes normal, strength in upper and lower extremities [5/5], [abnormal gait noted] Neurological: speech clear, floral merchandiser equal, no gross sensory deficits Assessment:: Degenerative disc disease lumbar spine with lumbar radiculopathy Plan:: We will refill her [place] 10 mg 1 tab p.o. 6 times a day. We will give her 2 months worth of medication see her back in 2 months reassess her symptoms at that time she is been instructed to call the office if she has any issues prior to her next appointment. Patient has been prescribed a controlled substance after being counseled on the medication, medication safety, and possible side effects. COLE report has been obtained and reviewed prior to prescription and found to be appropriate. Opioid contract was reviewed and signed by the patient, and that they have agreed to all of the terms set forth by our compliance program. Dr. Small has reviewed this note and agrees with this plan of care. This note was dictated using voice recognition software and may contain errors or omissions [facility] History I have reviewed the patient's past medical history: Yes Medical History: Reports:: Asthma, Cancer (lymphoma), Diabetes Mellitus Type 2, Hyperlipidemia, Hypertension Denies:: Diabetes Mellitus Type 1, Internal Pacemaker, MRSA, Seizures *Have you ever received a pneumonia vaccine?: No *Have you received a flu vaccine this season?: No Other Medical History: Reports: Chemotherapy. Denies: Blood Transfusion Reaction Laterality Cases: Right: Arthroscopy Knee, Bilateral: Tonsillectomy Other Surgeries: Yes: Cancer Surgery, Colonoscopy, EGD, Hysterectomy-Partial, Plastic Surgery. No: Pacemaker Amputation: No Fractures: Yes - *Social History Smoking Status: Former smoker Tobacco Type: cigarettes # Packs/Day (cigarettes): 0 #Yrs smoked (if former smoker): 20 Alcohol Intake: never Substance Use Type: other *Occupational Status:: other Housing: house Household Members: spouse *Travel in the last 8 weeks: None Family Hx:: Asthma, Cancer, Coronary Artery Disease, Heart Attack, Hyperlipidemia, Hypertension, Kidney Disease, Stroke, Thyroid Disorder
== END ==
PROVIDERS: PCP Family Medicine; Visit Provider Clinical Nurse Specialist Family Health
DX: M51.16 Intervertebral disc disorders with radiculopathy, lumbar region (principal); C82.90 Follicular lymphoma, unspecified, unspecified site; J45.909 Unspecified asthma, uncomplicated; E11.9 Type 2 diabetes mellitus without complications; E78.5 Hyperlipidemia, unspecified; I10 Essential (primary) hypertension; Z87.891 Personal history of nicotine dependence
CPT/HCPCS: 99212

== ENCOUNTER → 2019-09-14 13:23 | Outpatient (CLI) | payer MEDICARE, SELFPAY ==
--- NOTE | 2019-09-14 13:29 | XR_ITS ---
PROCEDURE: XR KNEE LT 3V CLINICAL INDICATION: ACUTE LT KNEE PAIN Posttraumatic pain COMPARISON: KNEE3L KNEE-3 VIEWS-LT from 08/10/2014 FINDINGS: No fracture or dislocation. No lytic or blastic change. There is normal mineralization. There are mild osteoarthritic changes involving all 3 compartments. No acute fracture or dislocation. There is a small suprapatellar effusion. Other findings:None. IMPRESSION: Tricompartmental osteoarthritic changes with small suprapatellar effusion Dictated by: Jeremias Bhardwaj MD 09/14/2019 14:49 Electronically signed by Jeremias Bhardwaj MD in [place] 09/14/2019 14:49
== END ==
PROVIDERS: PCP Family Medicine; Visit Provider Family Medicine
DX: M25.562 Pain in left knee (principal)
CPT/HCPCS: 73562

== ENCOUNTER → 2019-10-04 12:55 | Outpatient (POV) | payer MEDICARE, SELFPAY ==
[2019-10-04 14:06] VITALS: BP 156/66; PULSE 85; RESP 18; O2SAT 98; BMI 29.2
[2019-10-04 18:51] LABS: Amphetamine/Metha Screen,Urine Negative ng/ml (<1000); Barbiturates Screen,Urine Positive ng/ml (<200)
[2019-10-04 18:53] LABS: Benzodiazepines Screen,Urine Negative ng/ml (<200)
[2019-10-04 18:54] LABS: Cannabinoid Screen,Urine Negative ng/ml (<50); Cocaine Screen,Urine Negative ng/ml (<300)
[2019-10-04 18:55] LABS: Methadone Screen,Urine Negative ng/ml (<300)
[2019-10-04 18:56] LABS: Opiate Screen,Urine Positive ng/ml (<300); Phencyclidine Screen,Urine Negative ng/ml (<25)
--- NOTE | 2019-10-05 09:03 | P.CONS_ITS ---
[facility] Pain Management SOAP Note Subjective:: Patient is a pleasant 69-year-old white female presents today for follow-up for medication refills. Patient is doing well rating her pain a 5 out of 10. She is on [place] 10 mg 1 p.o. 6 times a day. Cole reviewed and appropriate urine drug screens have been appropriate. She denies side effects or medication and states it helps up to 80%. ROS General: no recent weight change, no fever, no sleep disturbances Respiratory: no cough, no shortness of air, no recurring pulmonary infections Cardiovascular/Peripheral Vascular: No chest pain, No palpitations, no edema, no shortness of breath. Gastrointestinal: no new onset incontinence, normal bowel movements reported Genitourinary: no new onset incontinence Musculoskeletal: Back pain, leg pain Psychiatric: normal mood/ affect, [denies depression], [denies anxiety] Neurological: [denies new onset weakness in extremities], [denies new onset balance issues] Objective:: Physical Exam General: Alert and oriented x3, no acute distress, pleasant and cooperative, [on room air] Lungs: Resps E/U, Symmetrical chest expansion, Eyes: PERRL Musculoskeletal: Flexion and extension of lumbar spine somewhat guarded secondary to pain, deep tendon reflexes normal, strength in upper and lower extremities [5/5], [abnormal gait noted] Neurological: speech clear, it technician equal, no gross sensory deficits Assessment:: Degenerative disc disease lumbar spine with lumbar radiculopathy Plan:: We will refill her [place] 10 mg 1 p.o. 6 times a day and give her 2 months worth of medication. 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 She is been instructed to call the office if she has any issues prior to her next appointment. Dr. Small has reviewed this note and agrees with this plan of care. This note was dictated using voice recognition software and may contain errors or omissions Patient has been prescribed a controlled substance after being counseled on the medication, medication safety, and possible side effects. COLE report has been obtained and reviewed prior to prescription and found to be appropriate. Opioid contract was reviewed and signed by the patient, and that they have agreed to all of the terms set forth by our compliance program. [facility] History I have reviewed the patient's past medical history: Yes Medical History: Reports:: Asthma, Cancer (lymphoma), Diabetes Mellitus Type 2, Hyperlipidemia, Hypertension Denies:: Diabetes Mellitus Type 1, Internal Pacemaker, MRSA, Seizures *Have you ever received a pneumonia vaccine?: Yes *Have you received a flu vaccine this season?: Yes Other Medical History: Reports: Chemotherapy. Denies: Blood Transfusion Reaction Laterality Cases: Right: Arthroscopy Knee, Bilateral: Tonsillectomy Other Surgeries: Yes: Cancer Surgery, Colonoscopy, EGD, Hysterectomy-Partial, Plastic Surgery. No: Pacemaker Amputation: No Fractures: Yes - *Social History Smoking Status: Former smoker Tobacco Type: cigarettes # Packs/Day (cigarettes): 0 #Yrs smoked (if former smoker): 20 Alcohol Intake: never Substance Use Type: other *Occupational Status:: other Housing: house Household Members: spouse *Travel in the last 8 weeks: None Family Hx:: Asthma, Cancer, Coronary Artery Disease, Heart Attack, Hyperlipidemia, Hypertension, Kidney Disease, Stroke, Thyroid Disorder
[2019-10-10 15:27] LABS: Codeine Negative (Cutoff=100); Hydrocodone Positive (.); Hydromorphone Positive (.); Morphine Negative (Cutoff=100)
[2019-10-10 17:56] LABS: Opiates Positive (.)
== END ==
PROVIDERS: PCP Family Medicine; Visit Provider Clinical Nurse Specialist Family Health
DX: M51.16 Intervertebral disc disorders with radiculopathy, lumbar region (principal); Z79.899 Other long term (current) drug therapy
CPT/HCPCS: 80305; 80361; 80365; 99212; G0480

== ENCOUNTER → 2019-11-29 14:06 | Outpatient (POV) | payer MEDICARE, SELFPAY ==
[2019-11-29 14:17] VITALS: BP 170/89; PULSE 79; RESP 18; TEMP 36.6; O2SAT 98; BMI 29.1
--- NOTE | 2019-11-30 08:22 | HMH.PAINSOAP ---
[facility] Pain Management SOAP Note Subjective:: Pleasant 69-year-old white female who presents today for medication refills. She is rating her pain today 6 out of 10. She is on [place] 10 mg 1 p.o. 6 times a day. Cole and urine drug screens have been appropriate. She denies side effects from medication. Cole #[id number] reviewed and appropriate. She is on Fiorinal for headaches. Patient has recently changed her primary care physician. Patient is asking us to take over her Cymbalta and gabapentin. We will be glad to do this. She is not in need of refills at this time. As far as her Fiorinal I discussed with her she may need to discuss this with a neurologist. Prior test taking this over. We are unable to take over her temazepam. Patient is being treated for pain secondary to degenerative disc disease lumbar spine with lumbar radiculopathy along with a cancer diagnosis. ROS General: no recent weight change, no fever, no sleep disturbances Respiratory: no cough, no shortness of air, no recurring pulmonary infections Cardiovascular/Peripheral Vascular: No chest pain, No palpitations, no edema, no shortness of breath. Gastrointestinal: no new onset incontinence, normal bowel movements reported Genitourinary: no new onset incontinence Musculoskeletal: Back pain, leg pain Psychiatric: normal mood/ affect Neurological: [denies new onset weakness in extremities], [denies new onset balance issues] Objective:: Physical Exam General: Alert and oriented x3, no acute distress, pleasant and cooperative, [on room air] Lungs: Resps E/U, Symmetrical chest expansion, Eyes: PERRL Musculoskeletal: Flexion and extension of lumbar spine somewhat guarded secondary to pain, deep tendon reflexes normal, strength in upper and lower extremities [5/5], [abnormal gait noted] Neurological: speech clear, trouble shooting mechanic equal, no gross sensory deficits Assessment:: Degenerative disc disease lumbar spine lumbar radiculopathy and cancer Plan:: We will refill her [place] 10 mg 1 p.o. 6 times a day and give her 2 months worth of medication. We will follow-up in 3 months reassess her at that time. We will take over her Cymbalta and her gabapentin when she runs out of refills. Dr. Small has reviewed this note and agrees with this plan of care. This note was dictated using voice recognition software and may contain errors or omissions Patient has been prescribed a controlled substance after being counseled on the medication, medication safety, and possible side effects. COLE report has been obtained and reviewed prior to prescription and found to be appropriate. Opioid contract was reviewed and signed by the patient, and that they have agreed to all of the terms set forth by our compliance program. We specifically discussed risk factors for Covid-19 including age, heart or lung disease, diabetes, immunosuppression and travel. We also discussed that NSAIDs may worsen Covid-19 infection symptoms and that they should not be used to treat Covid-19 symptoms. Patient was also informed that corticosteroids in any form oral or injectable will decrease immune response and may increase risk of Covid-[address] Small has reviewed this patient's chart and this note and agrees with plan of care. Patient has been instructed to call the office if they have any issues prior to the next appointment. [facility] History I have reviewed the patient's past medical history: Yes Medical History: Reports:: Asthma, Cancer (lymphoma), Diabetes Mellitus Type 2, Hyperlipidemia, Hypertension Denies:: Diabetes Mellitus Type 1, Internal Pacemaker, MRSA, Seizures *Have you ever received a pneumonia vaccine?: Yes *Have you received a flu vaccine this season?: Yes Other Medical History: Reports: Chemotherapy. Denies: Blood Transfusion Reaction Laterality Cases: Right: Arthroscopy Knee, Bilateral: Tonsillectomy Other Surgeries: Yes: Cancer Surgery, Colonoscopy, EGD, Hysterectomy-P
== END ==
PROVIDERS: PCP Family Medicine; Visit Provider Clinical Nurse Specialist Family Health
DX: M51.16 Intervertebral disc disorders with radiculopathy, lumbar region (principal); C82.90 Follicular lymphoma, unspecified, unspecified site
CPT/HCPCS: 99212

== ENCOUNTER → 2020-01-04 10:48 | Outpatient (POV) | payer MEDICARE, SELFPAY ==
[2020-01-04 11:08] VITALS: BP 178/85; PULSE 81; RESP 18; O2SAT 99; BMI 29.1
--- NOTE | 2020-01-04 13:00 | HMH.PAINSOAP ---
[facility] Pain Management SOAP Note Subjective:: Patient is a pleasant 69-year-old white female who presents today for potential injective therapy. She rates her pain a 6 out of 10. At her previous pain clinic she was getting facet joint injections along with knee injections. She would like both of those. Patient and I discussed that we cannot do both on the same day she understands. She is on [place] 10 mg 1 p.o. 6 times a day and Cymbalta and gabapentin but she does not need refills today. Patient states that she has difficulty with twisting. Patient states she gets 80% relief with her facet joint injections. We will move forward with this. Patient also has left knee pain. We will move forward with scheduling her a left knee intra-articular injection as well. She is not on any anticoagulation therapy. ROS General: no recent weight change, no fever, no sleep disturbances Respiratory: no cough, no shortness of air, no recurring pulmonary infections Cardiovascular/Peripheral Vascular: No chest pain, No palpitations, no edema, no shortness of breath. Gastrointestinal: no new onset incontinence, normal bowel movements reported Genitourinary: no new onset incontinence Musculoskeletal: Back pain, knee pain Psychiatric: normal mood/ affect Neurological: [denies new onset weakness in extremities], [denies new onset balance issues] Objective:: Physical Exam General: Alert and oriented x3, no acute distress, pleasant and cooperative, [on room air] Lungs: Resps E/U, Symmetrical chest expansion, Eyes: PERRL Musculoskeletal: Flexion and extension of lumbar spine somewhat guarded secondary to pain, deep tendon reflexes normal, strength in upper and lower extremities [5/5], [abnormal gait noted] Neurological: speech clear, rivet heater gas equal, no gross sensory deficits Assessment:: Degenerative disc disease lumbar spine lumbar facet arthropathy and osteoarthritis left knee Plan:: We will schedule the patient for an L4-L5 L5-S1 bilateral medial branch block given to the efficacy of this in the past I do believe it would benefit her. We will also set her up in several weeks for a left knee intra-articular injection. She has been instructed to call the office if she has any issues prior to her next appointment. I will follow-up with her after her injections reassess her symptoms at that time Dr. Small has reviewed this note and agrees with this plan of care. This note was dictated using voice recognition software and may contain errors or omissions [facility] History I have reviewed the patient's past medical history: Yes Medical History: Reports:: Asthma, Cancer (lymphoma), Diabetes Mellitus Type 2, Hyperlipidemia, Hypertension Denies:: Diabetes Mellitus Type 1, Internal Pacemaker, MRSA, Seizures *Have you ever received a pneumonia vaccine?: Yes *Have you received a flu vaccine this season?: Yes Other Medical History: Reports: Chemotherapy. Denies: Blood Transfusion Reaction Laterality Cases: Right: Arthroscopy Knee, Bilateral: Tonsillectomy Other Surgeries: Yes: Cancer Surgery, Colonoscopy, EGD, Hysterectomy-Partial, Plastic Surgery. No: Pacemaker Amputation: No Fractures: Yes - *Social History Smoking Status: Former smoker Tobacco Type: cigarettes # Packs/Day (cigarettes): 0 #Yrs smoked (if former smoker): 20 Alcohol Intake: never Substance Use Type: other *Occupational Status:: other Housing: house Household Members: spouse *Travel in the last 8 weeks: None Family Hx:: Asthma, Cancer, Coronary Artery Disease, Heart Attack, Hyperlipidemia, Hypertension, Kidney Disease, Stroke, Thyroid Disorder
== END ==
PROVIDERS: PCP Family Medicine; Visit Provider Clinical Nurse Specialist Family Health
DX: M51.36 Other intervertebral disc degeneration, lumbar region (principal); M17.12 Unilateral primary osteoarthritis, left knee; M12.88 Other specific arthropathies, not elsewhere classified, other specified site
CPT/HCPCS: 99212

== ENCOUNTER 2020-01-14 12:43 | Day surgery (SDC) | payer MEDICARE, SELFPAY ==
[2020-01-14 13:16] VITALS: BP 151/71; PULSE 78; RESP 16; TEMP 36.5; O2SAT 90; BMI 29.9
--- NOTE | 2020-01-14 13:31 | P.PCN_ITS ---
- Procedure Date: 01/14/20 Time: 13:31 Anesthesiologist:: Slade Small MD Complications:: None Pre-procedure Diagnosis:: Degenerative disc disease of lumbar spine with lumbar spondylosis and lumbar facet arthropathy Post-procedure Diagnosis:: Same Indications for Procedure:: This patient is a pleasant 69-year-old white female who we are treating for low back pain with lumbar spondylosis and facet arthropathy of lumbar spine. She has increasing facet mediated pain. She has been benefited previously from facet joint injections. We will do bilateral facet joint injections of L4-5 and L5-S1 today. Procedure Details:: Lumbar medial branch block Informed consent was obtained and the risks and benefits of the procedure was explained to the patient. The back was prepped using ChloraPrep. The skin and subcutaneous tissues were anesthetized using lidocaine. I placed 22-gauge spinal needles into the facet joint/medial branches of L4-L5 and L5-S1 bilate rally. Needle placement was confirmed with dye. After this we injected 3 mL bupivacaine 0.25% and Depo-Medrol 20 mg into each facet joint/medial branch of L4-L5 and L5-S1 bilaterally. We used a total of 80 mg Depo-Medrol for both levels bilaterally. The patient tolerated the procedure well with no complications. Plan and Disposition:: Follow-up with her in 2 weeks. Will reevaluate her symptoms at that time. If these are successful we will plan on RFA ablation to the facet joints of L4-5 and L5-S1 bilaterally.
[2020-01-14 13:33] VITALS: BP 132/85; PULSE 77
[2020-01-14 13:36] VITALS: BP 152/79; PULSE 85; RESP 18; O2SAT 98
[2020-01-14 13:45] VITALS: BP 173/87; PULSE 79; RESP 18; TEMP 36.2; O2SAT 92
== END 2020-01-14 13:45 | disposition home or self-care (01) ==
LOC: SC.PAINP 12:44
PROVIDERS: PCP Family Medicine; Visit Provider Anesthesiology
DX: M51.36 Other intervertebral disc degeneration, lumbar region (principal); M47.816 Spondylosis without myelopathy or radiculopathy, lumbar region; M12.88 Other specific arthropathies, not elsewhere classified, other specified site; I10 Essential (primary) hypertension; J45.909 Unspecified asthma, uncomplicated; Z88.0 Allergy status to penicillin; Z88.1 Allergy status to other antibiotic agents; Z88.2 Allergy status to sulfonamides; Z88.8 Allergy status to other drugs, medicaments and biological substances; Z79.899 Other long term (current) drug therapy
CPT/HCPCS: 64493; 64494; Q9966

== ENCOUNTER 2020-01-28 09:35 | Day surgery (SDC) | payer MEDICARE, SELFPAY ==
[2020-01-28 10:03] VITALS: BP 146/49; PULSE 69; RESP 18; TEMP 36.4; O2SAT 93; BMI 29.9
[2020-01-28 10:44] VITALS: BP 130/82; BP 132/88; PULSE 72; PULSE 75; RESP 18; O2SAT 99
--- NOTE | 2020-01-28 10:46 | P.PCN_ITS ---
- Procedure Date: 01/28/20 Time: 10:46 Anesthesiologist:: Slade Small MD Complications:: None Pre-procedure Diagnosis:: Left knee intra-articular injection Post-procedure Diagnosis:: Same Indications for Procedure:: This patient is a pleasant 69-year-old white female who we are treating for low back pain with lumbar spondylosis and facet arthropathy of lumbar spine. She did very well from her previous facet joint injections. She is still 80 to 90% better. She now has some increasing left knee pain. We will do a left knee intra-articular injection to help her with her pain symptoms. Procedure Details:: Left knee intra-articular injection Informed consent was obtained risk and benefits of the procedure was planed to the patient. Patient was taken to the procedure room. The left knee was prepped using ChloraPrep. A 25-gauge needle was inserted first medially then laterally we injected 10 mL bupivacaine 0.25% Depo-Medrol 40 mg into the left kn ee. Patient tolerated the procedure well with no complications. Plan and Disposition:: We will follow-up with her in 2 weeks. Will reevaluate her symptoms at that time. If she is still getting relief from her facet joint injections we will hold on RFA to these facet joints of L4-5 and L5-S1.
[2020-01-28 11:18] VITALS: BP 153/74; PULSE 80; RESP 18; O2SAT 93
== END 2020-01-28 10:50 | disposition home or self-care (01) ==
LOC: SC.PAINP 09:37
PROVIDERS: PCP Family Medicine; Visit Provider Anesthesiology
DX: M17.12 Unilateral primary osteoarthritis, left knee (principal); M47.816 Spondylosis without myelopathy or radiculopathy, lumbar region; M12.88 Other specific arthropathies, not elsewhere classified, other specified site; I10 Essential (primary) hypertension; J44.9 Chronic obstructive pulmonary disease, unspecified; Z99.81 Dependence on supplemental oxygen; K21.9 Gastro-esophageal reflux disease without esophagitis; K58.0 Irritable bowel syndrome with diarrhea; F41.9 Anxiety disorder, unspecified; F32.9 Major depressive disorder, single episode, unspecified; G43.909 Migraine, unspecified, not intractable, without status migrainosus; C85.90 Non-Hodgkin lymphoma, unspecified, unspecified site
CPT/HCPCS: 20610; J1040

== ENCOUNTER → 2020-02-07 11:32 | Outpatient (POV) | payer MEDICARE, SELFPAY ==
--- NOTE | 2020-02-07 12:12 | HMH.PAINSOAP ---
[facility] Pain Management SOAP Note Subjective:: Patient is a pleasant 69-year-old white female who presents today for follow-up after a left knee injection. She also recently underwent medial branch block/facet joint injections of her lumbar spine. Patient does says she got between 90 to 95% relief after her facet injections. She says that she also got about 80% relief with her intra-articular knee injection, however, her knee has returned. She rates her pain a 6 out of 10. She says her pain is worse at night. Patient did discuss a possible geniculate block to her left knee at her last visit and would like to proceed with the procedure. Review of Systems General: No recent weight changes, no fever, no sleep disturbances Respiratory: No cough, no shortness of air, no recurring pulmonary infections Cardiovascular/peripheral vascular: No chest pain, no palpitations, no edema, no shortness of breath Gastrointestinal: No new onset incontinence, normal bowel movements reported Genitourinary: No new onset incontinence Musculoskeletal: Left knee pain Psychiatric: Normal mood/affect Neurological: [Denies weakness in extremities], [denies balance issues] Objective:: Physical exam General: Alert and oriented x3, no acute distress, pleasant and cooperative, [on room air] Lungs: Respirations even and unlabored, symmetrical chest expansion Eyes: PERRL Musculoskeletal: Flexion and extension of lumbar spine somewhat guarded secondary to pain, deep tendon reflexes normal, strength in upper and lower extremities [5/5], [abnormal gait noted] Neurological: Speech clear, ems driver equal, no gross sensory deficit Assessment:: Left knee pain Plan:: Patient did get relief with her medial branch block/facet joint injections. She is not having any low back pain at this time. She is complaining mostly of her knee pain. Patient did discuss a left knee geniculate block at her last visit during the injection to her left knee. She did get relief with the injection initially, but her pain did return. She would like to proceed with the left knee genicular block. We will see her back in the clinic after her injection to reassess her symptoms. She has been instructed to contact clinic if she has any concerns before her next appointment. The patient and I specifically discussed risk factors for COVID19. These risks include, but are not limited to age greater than 60, heart or lung disease, diabetes, immunosuppression, and travel. We also discussed NSAIDs may worsen COVID19 infection or symptoms. Patient should not use NSAIDs to treat COVID19 signs or symptoms. Patient was also informed that any type of corticosteroid of any form (oral or injection) will decrease the patient's immune system response and may increase the likelihood of COVID19 infection and symptoms[address] Dr. Small has reviewed this note and agrees with this plan of care. This note was dictated using voice recognition software and make contain errors or omissions. [facility] History I have reviewed the patient's past medical history: Yes Medical History: Reports:: Asthma, Depression, Hyperlipidemia, Hypertension, Migraine Denies:: Cancer, Diabetes Mellitus Type 1, Diabetes Mellitus Type 2, Internal Pacemaker, MRSA, Seizures *Have you ever received a pneumonia vaccine?: No *Have you received a flu vaccine this season?: No Other Medical History: Reports: Cataracts, Chemotherapy. Denies: Blood Transfusion Reaction Laterality Cases: Right: Arthroscopy Knee, Bilateral: Tonsillectomy Other Surgeries: Yes: Cancer Surgery, Cholecystectomy, Colonoscopy, EGD, Hysterectomy-Partial, Plastic Surgery. No: Pacemaker Amputation: No Fractures: Yes - *Social History Smoking Status: Former smoker Tobacco Type: cigarettes # Packs/Day (cigarettes): 0 #Yrs smoked (if former smoker): 20 Alcohol Intake: never Alcohol Intake Frequency:: other Substance Use Type: other *Occupational Status:: retired Housing: house Hous
[2020-02-07 12:50] VITALS: BP 132/82; PULSE 88; RESP 18; O2SAT 98; BMI 30.7
== END ==
PROVIDERS: PCP Family Medicine; Visit Provider Clinical Nurse Specialist Family Health
DX: M25.562 Pain in left knee (principal)
CPT/HCPCS: 99212

== ENCOUNTER 2020-02-18 13:17 | Day surgery (SDC) | payer MEDICARE, SELFPAY ==
[2020-02-18 13:39] VITALS: BP 168/80; PULSE 93; RESP 20; TEMP 36.8; O2SAT 93; BMI 30.7
[2020-02-18 13:44] VITALS: BP 152/88; PULSE 79; RESP 18
[2020-02-18 13:45] VITALS: BP 149/78; PULSE 82; RESP 18; O2SAT 98
--- NOTE | 2020-02-18 13:46 | P.PCN_ITS ---
- Procedure Date: 02/18/20 Time: 13:46 Anesthesiologist:: Slade Small MD Complications:: None Pre-procedure Diagnosis:: Left knee pain with degenerative osteoarthritis left knee Post-procedure Diagnosis:: Same Indications for Procedure:: This patient is a pleasant 69-year-old white female who we are treating for chronic left knee pain. She did undergo intra-articular injections to her knee which did not last very long. She does have some chronic left knee degenerative osteoarthritis. She is in need of his left knee replacement however she would like to hold off as long as possible. We will do left-sided genicular nerve blocks, superior medial, superior lateral and inferior medial genicular nerve blocks today to help her with her pain symptoms. Procedure Details:: Left knee genicular block Informed consent was obtained and the risk and benefits of the procedure was explained to the patient. The patient was taken to the procedure room. The lef t knee was prepped using ChloraPrep. I placed 22-gauge needles into the area of the left superior medial genicular nerve, left superior lateral genicular nerve and left inferior medial genicular nerve. Needle placement was confirmed in AP and lateral views with dye. We then injected bupivacaine 0.25% 3 mL's and Depo- Medrol 25 mg into each area of the left superior medial genicular nerve, left s uperior lateral genicular nerve and left inferior medial genicular nerve. Patient tolerated the procedure well with no complications. Plan and Disposition:: We will follow-up with her in 2 weeks. Will reevaluate symptoms at that time. If she does well with these blocks however it is not long-lasting we will plan on left knee genicular RFA.
[2020-02-18 14:00] VITALS: BP 165/69; PULSE 83; RESP 20; O2SAT 93
== END 2020-02-18 14:00 | disposition home or self-care (01) ==
LOC: SC.PAINP 13:18
PROVIDERS: PCP Family Medicine; Visit Provider Anesthesiology
DX: M17.12 Unilateral primary osteoarthritis, left knee (principal); I82.409 Acute embolism and thrombosis of unspecified deep veins of unspecified lower extremity; J44.9 Chronic obstructive pulmonary disease, unspecified; Z99.81 Dependence on supplemental oxygen; K58.9 Irritable bowel syndrome, unspecified; F32.9 Major depressive disorder, single episode, unspecified; Z85.72 Personal history of non-Hodgkin lymphomas; Z87.39 Personal history of other diseases of the musculoskeletal system and connective tissue; Z90.89 Acquired absence of other organs; Z90.711 Acquired absence of uterus with remaining cervical stump; Z88.0 Allergy status to penicillin; Z88.2 Allergy status to sulfonamides
CPT/HCPCS: 64454; J1040; Q9966

== ENCOUNTER → 2020-03-31 15:14 | Outpatient (CLI) | payer MEDICARE, SELFPAY ==
[2020-03-31 16:44] LABS: Alanine Aminotransferase 21 U/L (12-78); Albumin Level 4.1 g/dl (3.5-5.0); Albumin/Globulin Ratio 2.2 (1.1-1.8); Alkaline Phosphatase 83 U/L (38-126); Anion Gap 11.1 mEq/L (5-15); Aspartate Amino Transferase 39 U/L (14-36); Bilirubin,Total 0.3 mg/dl (0.2-1.3); Blood Urea Nitrogen 8 mg/dl (7-17); Calcium 9.2 mg/dl (8.4-10.2); Carbon Dioxide 37 mmol/L (22.0-30.0); Chloride 90 mmol/L (98-107); Estimated Glomerular Filt Rate 99 ml/min (>60); GFR (African American) 120 ML/MIN (>60); Globulin 1.9 g/dL (1.3-3.2); Glucose 88 mg/dl (74-100); Lactate Dehydrogenase 189 U/L (313-618); Magnesium 2.2 mg/dl (1.6-2.3); Potassium 4.1 mmoL/L (3.5-5.1); Sodium 134 mmol/L (136-145)
[2020-03-31 18:36] LABS: Basophils # 0.1 K/mm3 (0-0.2); Basophils % 1.2 % (0.1-2.0); Eosinophils # 0.5 K/mm3 (0.0-0.4); Eosinophils % 6.9 % (0.1-12.0); Hematocrit 41.6 % (37.0-47.0); Hemoglobin 14.8 g/dL (12.2-16.2); Lymphocytes # 1.5 K/mm3 (0.7-4.5); Lymphocytes % 22.5 % (10-50); Mean Corpuscular HGB Conc 35.4 g/dL (31.8-35.4); Mean Corpuscular Hemoglobin 34.4 pg (27.0-31.2); Mean Corpuscular Volume 97.2 fl (81-99); Mean Platelet Volume 7.9 fl (7.4-10.4); Monocytes # 0.4 K/mm3 (0.1-1.0); Monocytes % 5.1 % (1.7-9.3); Neutrophils # 4.4 K/mm3 (1.8-7.8); Neutrophils % 64.4 % (37.0-80.0); Platelet Count 207 K/mm3 (142-424); Red Blood Count 4.28 M/mm3 (4.20-5.40); White Blood Count 6.8 K/mm3 (4.8-10.8)
== END ==
DX: C83.30 Diffuse large B-cell lymphoma, unspecified site (principal)
CPT/HCPCS: 36415; 80053; 83615; 83735; 85025; J1642

== ENCOUNTER 2020-04-11 16:13 | Emergency (ER) | payer MEDICARE, SELFPAY ==
[2020-04-11 16:22] VITALS: BP 132/63; PULSE 80; RESP 14; TEMP 37; O2SAT 92; BMI 29.1
--- NOTE | 2020-04-11 16:29 | HMH.EDUTC ---
[facility] [place] Disposition Clinical Impression: Sinusitis Qualifiers: Sinusitis location: unspecified location Chronicity: unspecified Qualified Code(s): J32.9 - Chronic sinusitis, unspecified Disposition: Home, Self-Care Condition on Discharge: Good Instructions: Sinusitis, Cough, DI for Sinusitis, DI for Cough -- Adult Additional Instructions: *Monitor Temp, Over the counter Motrin or Tylenol as directed/as needed Tylenol every 4 hours and Motrin every 6 hours (as long as your family doctor has told you that you can take it) for fever or pain. and straight to ER if unable to lower temp less than 101.0 after medication given *Warm salt water gargles may help to soothe the throat *Throat Lozenges *Warm fluids like tea with honey may help to soothe the throat *Sleep elevated *Humidifier/Vaporizer *Take medication as prescribed Continue to take your cough pills as prescribed for cough Return if needed Follow up IMMEDIATELY for new or worsening symptoms or no Noticeable improvement over the next 48-72 hours. 911 for difficulty breathing or swallowing You was tested for today for COVID19 your test result should be back within the next 48-72 hours, call back to the [facility] to see if your test results are back and the result You was given a handout with instructions for Self Quarantine and Self isolation for while you wait on test results and what to do if they are positive Prescriptions: Doxycycline Monohydrate [Doxycycline [place] 100mg Tab] 100 mg PO BID 10 Days #20 tab Transmission Status: Pending to [id number] Fluticasone Propionate [Flonase 50mcg nasal spray 16gm] 1 - 2 spr NS DAILY #1 bottle Transmission Status: Pending to [id number] Referrals: Daniel Tello MD [Primary Care Provider] - As needed Time of Disposition: 16:44 Medical Decision Making - Jp Inquiry Pt receiving controlled substance: No Jp was queried for this patient: No Vital Signs: 04/11/20 16:22 Temperature 98.6 F Temperature Source Oral Pulse Rate [Radial] 80 Respiratory Rate 14 Blood Pressure [Right Arm] 132/63 Blood Pressure Mean [Right Arm] 86 Blood Pressure Source [Right Arm] Automatic Cuff Blood Pressure Position [Right Arm] Sitting 02 Sat by Pulse Oximetry 92 L Oxygen Delivery Method Room Air Orders (Tests/Meds): ORDERS Category Date Time Status Covid-19 Nasal PCR Sendout [facility] 04/11/20 16:35 Received [facility] [place] HPI - General Stated complaint: cough chest congrstion Time Seen by Provider: 04/11/20 16:30 Mode of Arrival: Ambulatory Source of Information: Patient Limitations: No Limitations Description of Symptoms (Recalled from Triage Doc. by RN): cough, cold, possible bronchitis HEENT Symptoms (Recalled from RN notes): Yes Resp Symptoms (Recalled from RN notes): No Skin Symptoms (Recalled from RN notes): No MS Symptoms (Recalled from RN notes): No Functional Status (Recalled from RN notes): wnl - History of Present Illness Provider Complaint: Patient states that she feels like she has bronchitis or a bad sinus infection States that she has been having sinus pain and pressure and cough when she lays down like something is draining in her throat States that she has been taking over the counter cold medication but it hasnt helped much States that she feels pressure in her sinuses and irritation in her throat Denies feeling SOA or known exposure to COVID 19 - Related Data Home Medications Medication Instructions Recorded Confirmed Gabapentin [Neurontin 600mg 600 mg PO TID 08/20/17 02/24/20 tablet] Levothyroxine Sodium [Synthroid 125 mcg PO DAILY 08/20/17 02/24/20 125mcg (0.125mg) tablet] Montelukast Sodium [Singulair 10mg 10 mg PO PM 08/20/17 02/24/20 tablet] Ropinirole HCl [Requip 1mg Tablet] 1 mg PO DAILY 08/20/17 02/24/20 Simvastatin 40 mg PO DAILY 08/20/17 02/24/20 Temazepam [Restoril] 30 mg PO DAILY 08/20/17 02/24/20 Triamterene/Hydrochlorothiazid 1 each PO DAILY
[2020-04-11 16:54] VITALS: BP 132/63; PULSE 80; RESP 14; TEMP 37; O2SAT 92
[2020-04-11 19:02] LABS: UTC Influenza A Antigen Negative (Negative)
[2020-04-11 19:03] LABS: UTC Influenza B Antigen Negative (Negative)
[2020-04-13 15:09] LABS: Covid-19 Nasal PCR Sendout Lex Not Detected
== END 2020-04-11 17:02 | disposition home or self-care (01) ==
PROVIDERS: Emergency Provider Nurse Practitioner; PCP Family Medicine
DX: J32.9 Chronic sinusitis, unspecified (principal); Z20.828 Contact with and (suspected) exposure to other viral communicable diseases; J44.9 Chronic obstructive pulmonary disease, unspecified; F33.1 Major depressive disorder, recurrent, moderate; E11.9 Type 2 diabetes mellitus without complications; E78.5 Hyperlipidemia, unspecified; I10 Essential (primary) hypertension; G43.709 Chronic migraine without aura, not intractable, without status migrainosus; Z90.79 Acquired absence of other genital organ(s); Z90.49 Acquired absence of other specified parts of digestive tract; Z87.891 Personal history of nicotine dependence; Z79.899 Other long term (current) drug therapy
CPT/HCPCS: 87804; 99201; U0004

== ENCOUNTER 2020-04-18 09:50 | Outpatient (CLI) | payer MEDICARE, SELFPAY ==
--- NOTE | 2020-04-18 | CT_ITS ---
PROCEDURE: CT CHEST W CON CLINCAL INDICATION: LYMPHOMA,LARGE CELL, DIFFUSE Follow-up lymphoma COMPARISON: CT CHESTW CT chest w con from 10/31/2017 TECHNIQUE: IV Contrast: 75ml Optiray 350 Axial images obtained with sagittal and coronal reformats. All CT scans at the facility use one or more dose reduction, viz: automated exposure control, ma/kV adjustment per patient size (including targeted exams where dose is matched to indication, i.e. head), or iterative reconstruction technique. FINDINGS: There is a right subclavian MediPort catheter present. The tip is in the region of the SVC. No mediastinal or hilar mass or adenopathy. No evidence of aortic aneurysm dissection or central pulmonary embolus. Right hemidiaphragm is elevated with atelectatic changes in the right lung base. There is a 3 mm noncalcified nodule in the right upper lobe image 19 series 4 not readily apparent on the previous study. No effusions or infiltrates. Degenerative changes are present in the thoracic spine. There is some scarring in the left lung base. IMPRESSION: As above, no convincing evidence recurrence lymphoma or adenopathy. 3 mm nodular opacity right apex nonspecific not readily apparent previously. Recommend six-month follow-up Dictated by: Jeremias Bhardwaj MD 04/19/2020 12:38 Jeremias Bhardwaj MD in [place] 04/19/2020 12:38
--- NOTE | 2020-04-18 | CT_ITS ---
PROCEDURE: CT ABDOMEN PELVIS W CON CLINICAL INDICATION: LYMPHOMA,LARGE CELL, DIFFUSE Follow-up lymphoma COMPARISON: CT ABDPELW CT ABD PELVIS W/ CONTRAST from 03/04/2017 TECHNIQUE: IV Contrast: 75ML OPTIRAY 350 Oral Contrast None Axial images obtained with sagittal and coronal reformats. All CT scans at the facility use one or more dose reduction, viz: automated exposure control, ma/kV adjustment per patient size (including targeted exams where dose is matched to indication, i.e. head), or iterative reconstruction technique. FINDINGS: LOWER THORAX: Right hemidiaphragm is elevated as before with mild atelectatic changes in the right lung base. ABDOMEN & PELVIS: No focal liver lesion is evident. There has been a prior cholecystectomy. Borderline splenic enlargement at 13 cm. There is some mild prominence of the adrenal glands not significantly changed. There is pancreatic atrophy. Unremarkable appearing kidneys. There are few small retroperitoneal lymph nodes which are not significantly changed. No new areas of lymph node enlargement. There is a tiny umbilical hernia which contains fat. No intestinal obstruction or free air. There is some very minimal haziness of the fat posterior to the ascending colon. This is of questionable clinical significance.. There are post hysterectomy changes. No evidence of appendicitis. Multilevel degenerative changes are present in the lumbar spine. IMPRESSION: Stable CT appearance of the abdomen. No evidence of recurrence lymphoma. There is minimal haziness of the fat posterior to the ascending colon. This is of questionable clinical significance. Mild colitis would be a consideration. Dictated by: Jeremias Bhardwaj MD 04/19/2020 12:00 Jeremias Bhardwaj MD in [place] 04/19/2020 12:00
--- NOTE | 2020-04-18 | CT_ITS ---
PROCEDURE: CT SOFT TISSUE NECK W CON CLINICAL HISTORY: LYMPHOMA,LARGE CELL, DIFFUSE Follow-up lymphoma COMPARISON: CT NECKW CT SOFT TISSUE NECK W/CONTRAST from 09/11/2016 TECHNIQUE: Oral Contrast: None IV Contrast: None Axial images obtained with sagittal and coronal reformats. All CT scans at the facility use one or more dose reduction, viz: automated exposure control, ma/kV adjustment per patient size (including targeted exams where dose is matched to indication, i.e. head), or iterative reconstruction technique. FINDINGS: The nasopharynx, oropharynx, hypopharynx, epiglottis, and glottic and subglottic region have an unremarkable appearance. No thyroid mass. No dominant adenopathy is evident. There are few small cervical lymph nodes which are unchanged. No abnormal fluid collections. Mild degenerative changes are present at the temporomandibular joints and there is mild cervical spondylosis with degenerative disc disease at C4-C5-C5-C6 and C6-C7 IMPRESSION: Stable CT appearance of the neck. No evidence of recurring adenopathy/lymphoma. Dictated by: Jeremias Bhardwaj MD 04/19/2020 12:27 Jeremias Bhardwaj MD in [place] 04/19/2020 12:27
[2020-04-18 09:56] VITALS: BMI 31.1
[2020-04-18 10:10] LABS: Chloride 92 mmol/L (98-107); Potassium 4.4 mmoL/L (3.5-5.1); Sodium 132 mmol/L (136-145)
[2020-04-18 10:13] LABS: Anion Gap 10.4 mEq/L (5-15); Blood Urea Nitrogen 10 mg/dl (7-17); Calcium 9.5 mg/dl (8.4-10.2); Carbon Dioxide 34 mmol/L (22.0-30.0); Creatinine Clearance Estimated 71 mL/min (50-200); Estimated Glomerular Filt Rate 99 ml/min (>60); GFR (African American) 120 ML/MIN (>60); Glucose 115 mg/dl (74-100)
== END 2020-04-18 11:15 | disposition home or self-care (01) ==
LOC: INF 09:51
PROVIDERS: PCP Family Medicine; Visit Provider Nurse Practitioner Family
DX: C83.30 Diffuse large B-cell lymphoma, unspecified site (principal)
CPT/HCPCS: 70491; 71260; 74177; 80048; J1642; Q9967

== ENCOUNTER → 2020-04-27 11:47 | Outpatient (POV) | payer MEDICARE, SELFPAY ==
[2020-04-27 12:10] VITALS: BP 125/85; PULSE 85; RESP 18; O2SAT 99; BMI 32.9
--- NOTE | 2020-04-27 12:22 | HMH.PAINSOAP ---
[facility] Pain Management SOAP Note Subjective:: Patient is a very pleasant 69-year-old who presents today for follow-up after left knee genicular block. She has undergone bilateral intra-articular knee injections, with short-term relief. Today, she says that she got 80% relief with her genicular block. She is complaining of low back pain today that is radiating into her bilateral lower extremities. She has had lumbar epidural steroid injections in the past and has gotten up to 80 to 90% relief for 3 to 4 months. Patient would like to proceed with a repeat lumbar epidural steroid injection. She is unable to take anti-inflammatories due to Eliquis use. She does try a home stretching program. She uses ice and heat therapies and has had physical therapy in the past. Review of Systems General: No recent weight changes, no fever, no sleep disturbances Respiratory: No cough, no shortness of air, no recurring pulmonary infections Cardiovascular/peripheral vascular: No chest pain, no palpitations, no edema, no shortness of breath Gastrointestinal: No new onset incontinence, normal bowel movements reported Genitourinary: No new onset incontinence Musculoskeletal: Low back pain into bilateral lower extremities Psychiatric: Normal mood/affect Neurological: [Denies weakness in extremities], [denies balance issues] Objective:: Physical exam General: Alert and oriented x3, no acute distress, pleasant and cooperative, [on room air] Lungs: Respirations even and unlabored, symmetrical chest expansion Eyes: PERRL Musculoskeletal: Flexion and extension of lumbar spine somewhat guarded secondary to pain, deep tendon reflexes normal, strength in upper and lower extremities [5/5], [abnormal gait noted] Neurological: Speech clear, 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 The patient is on Eliquis. She has been approved to hold her Eliquis in the past. We will see her back in the clinic afterwards to reassess her symptoms. Patient has been instructed to contact clinic if she has any concerns before next appointment. The patient and I specifically discussed risk factors for COVID19. These risks include, but are not limited to age greater than 60, heart or lung disease, diabetes, immunosuppression, and travel. We also discussed NSAIDs may worsen COVID19 infection or symptoms. Patient should not use NSAIDs to treat COVID19 signs or symptoms. Patient was also informed that any type of corticosteroid of any form (oral or injection) will decrease the patient's immune system response and may increase the likelihood of COVID19 infection and symptoms[address] Dr. Small has reviewed this note and agrees with this plan of care. This note was dictated using voice recognition software and make contain errors or omissions. [facility] History I have reviewed the patient's past medical history: Yes Medical History: Reports:: Asthma, Cancer, Chronic Obstructive Pulmonary Disease (COPD), Deep Vein Thrombosis, Depression, Diabetes Mellitus Type 2, Home Oxygen, Hyperlipidemia, Hypertension, Migraine Denies:: Diabetes Mellitus Type 1, Internal Pacemaker, MRSA, Seizures *Have you ever received a pneumonia vaccine?: Yes *Have you received a flu vaccine this season?: Yes Other Medical History: Reports: Cataracts, Chemotherapy. Denies: Blood Transfusion Reaction Laterality Cases: Right: Arthroscopy Knee, Bilateral: Tonsillectomy Other Surgeries: Yes: Appendectomy, Cancer Surgery, Cholecystectomy, Colonoscopy, EGD, Hysterectomy-Partial, Plastic Surgery, Other. No: Pacemaker Amputation: No Fractures: Yes - *Social History Smoking Status: Former smoker Tobacco Type: cigarettes # Packs/Day (cigarettes): 0 #Yrs smoked (if former smoker): 20 Alcohol Intake: never Alcohol Intake Frequency:: other Substance Use Type: d
== END ==
PROVIDERS: PCP Family Medicine; Visit Provider Clinical Nurse Specialist Family Health
DX: M51.16 Intervertebral disc disorders with radiculopathy, lumbar region (principal)
CPT/HCPCS: 99212

== ENCOUNTER 2020-05-02 12:01 | Emergency (ER) | payer MEDICARE, SELFPAY ==
--- NOTE | 2020-05-02 12:15 | CA_ITS ---
APPROVED REPORT Left Lower Extremity Venous Study for DVT. [employer] Manager: Linnette Do RVT Indications Lower Extremity Pain: Left Lower Extremity Edema: Left pain and swelling Risk Factors Malignancy Past History DVT : Vein Imaging CFV (L): compressive, spontaneous, phasic, augmentation FEM (L): compressive, spontaneous, phasic, augmentation POP (L): compressive, spontaneous, phasic, augmentation PTV (L): Compressible GSV (L): Compressible Peroneals (L):Compressible GAS (L): Compressible Findings Study suggests no evidence of DVT of the left lower extremity. Study suggests no evidence of SVT of the left lower extremity. Conclusion Study suggests no evidence of DVT of the left lower extremity. Study suggests no evidence of SVT of the left lower extremity. Critical Notification Physician Notified Date: 05/02/2020 Time: 13:10 Physician Name: Michelle Electronically signed by : Jeremias Bhardwaj MD 05/02/2020 17:50:50
[2020-05-02 12:23] VITALS: BP 145/85; PULSE 89; RESP 19; TEMP 36.6; O2SAT 99; BMI 33.1
--- NOTE | 2020-05-02 12:29 | HMH.EDUTC ---
[facility] Disposition Clinical Impression: Cellulitis Qualifiers: Site of cellulitis: extremity Site of cellulitis of extremity: lower extremity Laterality: left Qualified Code(s): L03.116 - Cellulitis of left lower limb Disposition: Home, Self-Care Condition on Discharge: Good Instructions: Cellulitis, Clindamycin Additional Instructions: *Start antibiotic(s) immediately and be sure to take as ordered for the FULL length of time although you may be feeling better or start to see improvement in the next 24-48 hours *Monitor closely. Outlined redness so that you can monitor easier. Follow up immediately for new or worsening symptoms including but not limited to redness, swelling, streaking from site fever or chills. *Never squeeze or pop these on your own. Seek immediate medical attention next time this occurs *Monitor Temp. Tylenol every 4 hours as needed and ibuprofen every 6 hours as needed (as long as your primary care doctor has told you that it is ok to take both. For fever, aches, pain. ER if no less that 101 despite Tylenol and ibuprofen Follow up with your family doctor/primary care physician in the next 48-72 hours if no improvement Return if needed Straight to ER if any life threatening symptoms, shortness of breath or chest pain Prescriptions: clindamycin HCL [Clindamycin HCl 300mg Cap] 300 mg PO Q8 7 Days #21 cap Transmission Status: Received by [id number] Referrals: Daniel Tello MD [Primary Care Provider] - As needed Time of Disposition: 13:06 Medical Decision Making - Jp Inquiry Pt receiving controlled substance: No Jp was queried for this patient: No Vital Signs: 05/02/20 12:23 05/02/20 13:12 Temperature 97.8 F 97.8 F Temperature Source Oral Pulse Rate 89 Pulse Rate [Right Brachial] 89 Respiratory Rate 19 19 Blood Pressure 145/85 H Blood Pressure [Right Arm] 145/85 H Blood Pressure Mean [Right Arm] 105 Blood Pressure Source [Right Arm] Automatic Cuff Blood Pressure Position [Right Arm] Sitting 02 Sat by Pulse Oximetry 99 Oxygen Delivery Method Room Air - US Data US Images: Lower Extremity ED US Reviewed: Yes: I have viewed radiologist's interpretation Preliminary Findings: Normal/NAD Findings Narrative: Venous doppler of lower extremity discusses with Vascular and advised negative study no DVT [facility] UTC HPI - General Stated complaint: left leg Time Seen by Provider: 05/02/20 12:29 Mode of Arrival: Ambulatory Source of Information: Patient Limitations: No Limitations Description of Symptoms (Recalled from Triage Doc. by RN): PATIENT C/O SWELLING AND PAIN TO LEFT LEG SINCE FRIDAY. STATES HER CANCER DOCTOR RECOMMENDED SHE HAVE AN ULTRASOUND PERFORMED HEENT Symptoms (Recalled from RN notes): No Resp Symptoms (Recalled from RN notes): No Skin Symptoms (Recalled from RN notes): No MS Symptoms (Recalled from RN notes): Yes Functional Status (Recalled from RN notes): WNL - History of Present Illness Provider Complaint: Patient states thats she always has some swelling in her lower extremities however she has been having worsening of swelling in her left lower leg and noticed it looked a little red States that she called her Cancer Doctor in [place] and he recommended that she be seen and get an ultrasound on her left lower leg due to history of DVT's - Related Data Home Medications Medication Instructions Recorded Confirmed Levothyroxine Sodium [Synthroid 125 mcg PO DAILY 08/20/17 04/27/20 125mcg (0.125mg) tablet] Montelukast Sodium [Singulair 10mg 10 mg PO PM 08/20/17 04/27/20 tablet] Ropinirole HCl [Requip 1mg Tablet] 1 mg PO DAILY 08/20/17 04/27/20 Simvastatin 40 mg PO DAILY 08/20/17 04/27/20 Temazepam [Restoril] 30 mg PO DAILY 08/20/17 04/27/20 Triamterene/Hydrochlorothiazid 1 each PO DAILY 08/20/17 04/27/20 [Maxzide-25 tablet] Ipratropium/Albuterol Sulfate 3 ml IH TIDRT 12/18/17 04/27/20 [Duoneb 3mL neb] Apixaban [Eliquis 2.5mg
[2020-05-02 13:12] VITALS: BP 145/85; PULSE 89; RESP 19; TEMP 36.6; O2SAT 99
== END 2020-05-02 13:18 | disposition home or self-care (01) ==
PROVIDERS: Emergency Provider Nurse Practitioner; PCP Family Medicine
DX: L03.116 Cellulitis of left lower limb (principal); Z86.718 Personal history of other venous thrombosis and embolism; Z79.01 Long term (current) use of anticoagulants; Z87.891 Personal history of nicotine dependence; I10 Essential (primary) hypertension; E78.5 Hyperlipidemia, unspecified; G43.709 Chronic migraine without aura, not intractable, without status migrainosus; F33.1 Major depressive disorder, recurrent, moderate; J44.9 Chronic obstructive pulmonary disease, unspecified; E11.9 Type 2 diabetes mellitus without complications; Z88.0 Allergy status to penicillin; Z88.2 Allergy status to sulfonamides
CPT/HCPCS: G0463; 93971; 99201

== ENCOUNTER → 2020-10-02 11:47 | Outpatient (POV) | payer MEDICARE, SELFPAY ==
[2020-10-02 12:07] VITALS: BP 133/79; PULSE 77; RESP 18; O2SAT 99; BMI 30.6
--- NOTE | 2020-10-02 12:48 | HMH.PAINSOAP ---
[facility] Pain Management SOAP Note Subjective:: Patient is a very pleasant 1-year-old white female who presents today for follow-up. Overall she is doing very well she currently presents today for medication refill she rates her pain a 4 out of 10 patient is currently on Orcas 10 mg 1 p.o. 6 times a day as needed she does not need any refills. She is also on gabapentin 600 mg a day 1 p.o. 4 times daily and Cymbalta 30 mg 2 tabs p.o. daily. We will refill this for her Jp #[id number] reviewed and appropriate. ROS General: no recent weight change, no fever, no sleep disturbances Respiratory: no cough, no shortness of air, no recurring pulmonary infections Cardiovascular/Peripheral Vascular: No chest pain, No palpitations, no edema, no shortness of breath. Gastrointestinal: no new onset incontinence, normal bowel movements reported Genitourinary: no new onset incontinence Musculoskeletal: Back pain, leg pain, knee pain Psychiatric: normal mood/ affect, Neurological: [denies new onset weakness in extremities], [denies new onset balance issues] Objective:: Physical Exam General: Alert and oriented x3, no acute distress, pleasant and cooperative, [on room air] Lungs: Resps E/U, Symmetrical chest expansion, Eyes: PERRL Musculoskeletal: Flexion and extension of lumbar spine somewhat guarded secondary to pain, deep tendon reflexes normal, strength in upper and lower extremities [5/5], [abnormal gait noted] Neurological: speech clear, meter 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 twice daily gabapentin 600 mg 4 times daily and Orcas as needed. Patient does not need any Orcas refills at this time. We will see her back in [address] Small has reviewed this note and agrees with this plan of care. This note was dictated using voice recognition software and may contain errors or omissions [facility] History I have reviewed the patient's past medical history: Yes Medical History: Reports:: Asthma, Cancer, Chronic Obstructive Pulmonary Disease (COPD), Deep Vein Thrombosis, Depression, Diabetes Mellitus Type 2, Home Oxygen, Hyperlipidemia, Hypertension, Migraine Denies:: Diabetes Mellitus Type 1, Internal Pacemaker, MRSA, Seizures *Have you ever received a pneumonia vaccine?: Yes *Have you received a flu vaccine this season?: Yes Other Medical History: Reports: Cataracts, Chemotherapy. Denies: Blood Transfusion Reaction Laterality Cases: Right: Arthroscopy Knee, Bilateral: Tonsillectomy Other Surgeries: Yes: Appendectomy, Cancer Surgery, Cholecystectomy, Colonoscopy, EGD, Hysterectomy-Partial, Plastic Surgery, Other. No: Pacemaker Amputation: No Fractures: Yes - *Social History Smoking Status: Former smoker Tobacco Type: cigarettes # Packs/Day (cigarettes): 0 #Yrs smoked (if former smoker): 20 Alcohol Intake: never Alcohol Intake Frequency:: other Substance Use Type: denies use *Occupational Status:: other Housing: house Household Members: spouse *Travel in the last 8 weeks: None - Psychiatric History Pschychiatric History:: Reports:: Depression Family Hx:: Asthma, Cancer, Coronary Artery Disease, Heart Attack, Hyperlipidemia, Hypertension, Kidney Disease, Stroke, Thyroid Disorder
--- NOTE | 2020-10-05 11:04 | PC.NURSE ---
called in Rx for cymbalta 30mg BID with 4 refills per provider order.
== END ==
PROVIDERS: PCP Family Medicine; Visit Provider Clinical Nurse Specialist Family Health
DX: M51.16 Intervertebral disc disorders with radiculopathy, lumbar region (principal); M25.569 Pain in unspecified knee
CPT/HCPCS: 99212; G0463

== ENCOUNTER → 2020-10-16 16:25 | Outpatient (CLI) | payer MEDICARE, SELFPAY ==
[2020-10-16 17:04] LABS: Basophils # 0.1 K/mm3 (0-0.2); Basophils % 0.8 % (0.1-2.0); Eosinophils # 0.5 K/mm3 (0.0-0.4); Eosinophils % 5.6 % (0.1-12.0); Hematocrit 47.1 % (37.0-47.0); Hemoglobin 15.8 g/dL (12.2-16.2); Lymphocytes # 1.5 K/mm3 (0.7-4.5); Lymphocytes % 16.5 % (10-50); Mean Corpuscular HGB Conc 33.6 g/dL (31.8-35.4); Mean Corpuscular Hemoglobin 32.1 pg (27.0-31.2); Mean Corpuscular Volume 95.8 fl (81-99); Mean Platelet Volume 7.2 fl (7.4-10.4); Monocytes # 0.4 K/mm3 (0.1-1.0); Monocytes % 4.2 % (1.7-9.3); Neutrophils # 6.8 K/mm3 (1.8-7.8); Neutrophils % 72.9 % (37.0-80.0); Platelet Count 235 K/mm3 (142-424); Red Blood Count 4.92 M/mm3 (4.20-5.40); Red Cell Distribution Width 14.8 % (11.5-17.5); White Blood Count 9.4 K/mm3 (4.8-10.8)
[2020-10-16 18:18] LABS: Alanine Aminotransferase 16 U/L (12-78); Albumin Level 4.6 g/dl (3.5-5.0); Albumin/Globulin Ratio 2.3 (1.1-1.8); Alkaline Phosphatase 76 U/L (38-126); Anion Gap 9.2 mEq/L (5-15); Aspartate Amino Transferase 22 U/L (14-36); Bilirubin,Total 0.3 mg/dl (0.2-1.3); Blood Urea Nitrogen 10 mg/dl (7-17); Calcium 9.8 mg/dl (8.4-10.2); Carbon Dioxide 33 mmol/L (22.0-30.0); Chloride 97 mmol/L (98-107); Estimated Glomerular Filt Rate 83 ml/min (>60); GFR (African American) 100 ML/MIN (>60); Glucose 118 mg/dl (74-100); Lactate Dehydrogenase 151 U/L (313-618); Magnesium 2.1 mg/dl (1.6-2.3); Potassium 4.2 mmoL/L (3.5-5.1); Sodium 135 mmol/L (136-145); Total Protein,Serum 6.6 g/dl (6.3-8.2)
== END ==
PROVIDERS: Visit Provider Internal Medicine Hematology & Oncology
DX: C83.30 Diffuse large B-cell lymphoma, unspecified site (principal)
CPT/HCPCS: 36415; 80053; 83615; 83735; 85025

== ENCOUNTER → 2020-10-17 08:38 | Outpatient (CLI) | payer MEDICARE, SELFPAY ==
--- NOTE | 2020-10-17 08:45 | CT_ITS ---
PROCEDURE: CT SOFT TISSUE NECK W CON CLINICAL HISTORY: LARGE CELL LYMPHOMA COMPARISON: CT CT SOFT TISSUE NECK W CON from 04/18/2020 TECHNIQUE: Oral Contrast: None IV Contrast: 100 mL of Isovue 370. Axial images obtained with sagittal and coronal reformats. All CT scans at the facility use one or more dose reduction, viz: automated exposure control, ma/kV adjustment per patient size (including targeted exams where dose is matched to indication, i.e. head), or iterative reconstruction technique. FINDINGS: No evidence of mass lesions are noted. No significant lymphadenopathy is noted. Few scattered subcentimeter lymph nodes are noted in the left level 2 a, not significant by size criteria. The nasopharynx, oropharynx, larynx and hypopharynx are unremarkable without evidence of mucosal asymmetry or focal lesions. The visualized thyroid gland, parotid and submandibular glands are unremarkable. Vascular calcification of the left internal carotid artery noted. Minor atherosclerotic vascular calcification of the thoracic aorta. The right subclavian Port-A-Cath is partially visualized. Multilevel degenerative changes of the thoracic spine are noted. The visualized skull base and the parapharyngeal spaces are within normal limits. IMPRESSION: No evidence of cervical lymphadenopathy. Minor chronic changes. Dictated by: Patricia Chaidez 10/17/2020 10:39 Patricia Chaidez in [place] 10/17/2020 10:39
--- NOTE | 2020-10-17 08:45 | CT_ITS ---
PROCEDURE: CT ABDOMEN PELVIS W CON CLINICAL INDICATION: LARGE CELL LYMPHOMA COMPARISON: CT CT ABDOMEN PELVIS W CON from 04/18/2020 TECHNIQUE: IV Contrast: 75ML Isovue 370 Oral Contrast None Axial images obtained with sagittal and coronal reformats. All CT scans at the facility use one or more dose reduction, viz: automated exposure control, ma/kV adjustment per patient size (including targeted exams where dose is matched to indication, i.e. head), or iterative reconstruction technique. FINDINGS: LOWER THORAX: Please see concurrent CT chest report of the same date for thoracic findings. ABDOMEN & PELVIS: Raised right hemidiaphragm is noted. The liver is enlarged measuring 22 centimeter in craniocaudal dimension. This demonstrates no significant interval change compared to the prior study. The spleen is normal in size measuring 11 centimeters. Cholecystectomy is noted. No intra or extrahepatic biliary dilation. The adrenal glands, pancreas and kidneys are unremarkable. Few calcifications are noted in the spleen, likely secondary to prior granulomatous disease. No significant retroperitoneal or mesenteric lymphadenopathy. Visualized large and small bowel loops demonstrate no focal wall thickening, obstruction or adjacent inflammatory changes. Minor fecal retention of the colon is noted. No free fluid or free intraperitoneal air. Atherosclerotic vascular calcification of the thoracic aorta and its branches. Degenerative changes of the visualized thoracic spine is noted. IMPRESSION: Hepatomegaly, unchanged. Spleen is normal in size. No infra diaphragmatic lymphadenopathy. No significant interval change compared to prior study. Dictated by: Patricia Chaidez 10/17/2020 10:33 Patricia Chaidez in [place] 10/17/2020 10:33
--- NOTE | 2020-10-17 09:03 | MM_ITS ---
PROCEDURE: MM DIG SCREENING MAMM BI W/CAD Digital Breast Tomosynthesis Included CLINICAL INDICATION: SCREENING There is no personal or family history of breast cancer. COMPARISON: We have been waiting for outside films to arrive and if and when they do arrive an addendum can be dictated TECHNIQUE: Standard CC and MLO images and 3D Tomosynthesis was obtained. R2 CAD reviewed. FINDINGS: Scattered fibroglandular densities are seen throughout both breasts. There is a MediPort device projecting over the axillary tail right breast. There are benign-appearing nodular densities in each breast, however since previous studies are not available for comparison recommend the patient return for spot compression views and ultrasound for better evaluation. There are few benign-appearing calcifications in each breast. There are no suspicious microcalcifications. IMPRESSION: Fibrofatty parenchyma with nodular densities in each breast BI-RAD Category: 0 Need Additional Imaging Evaluation FOLLOW-UP: IMM Immediate Follow-up Recommended (A letter has been sent to the patient regarding results of the study.) Dictated by: Dr. Silvio Terry MD 11/09/2020 08:53 Dr. Silvio Terry MD in [place] 11/09/2020 08:53
--- NOTE | 2020-10-17 09:12 | CT_ITS ---
PROCEDURE: CT CHEST W CON CLINCAL INDICATION: LARGE CELL LYMPHOMA COMPARISON: CT CT CHEST W CON from 04/18/2020 TECHNIQUE: IV Contrast: 75ml Isovue 370 Axial images obtained with sagittal and coronal reformats. All CT scans at the facility use one or more dose reduction, viz: automated exposure control, ma/kV adjustment per patient size (including targeted exams where dose is matched to indication, i.e. head), or iterative reconstruction technique. FINDINGS: HEART AND MEDIASTINAL STRUCTURES: The heart size is normal. No pericardial effusions. Incidental note is made of minor lipomatous hypertrophy of the interatrial septum. Minor atherosclerotic vascular calcification of the thoracic aorta is noted. There is a right subclavian Port-A-Cath with its tip in the superior vena cava. No significant mediastinal or hilar adenopathy noted. LUNGS AND PLEURAL SPACES: Calcified granuloma is noted in the right upper lobe. Minor bibasal atelectasis. No lobar consolidation, pleural effusions or pneumothorax. Minor mucous debris is noted in the bilateral lower lobe bronchi. No suspicious lung nodules are noted. There is a subpleural 3 millimeter nodule, unchanged compared to prior study. Previously noted 3 millimeter nodule in the right upper lobe is not visualized on the current study. No other suspicious lung nodules. BONY STRUCTURES: Multilevel degenerative changes of the visualized thoracic spine are noted. UPPER ABDOMEN: Please see concurrent CT abdomen report for abdominal findings. ADDITIONAL FINDINGS: The visualized thyroid gland is unremarkable. IMPRESSION: Minor bibasal atelectasis. No significant lymphadenopathy. No evidence of residual/recurrent disease. Dictated by: Patricia Chaidez 10/17/2020 10:28 Patricia Chaidez in [place] 10/17/2020 10:28
== END ==
PROVIDERS: PCP Family Medicine; Visit Provider Internal Medicine Hematology & Oncology
DX: Z12.31 Encounter for screening mammogram for malignant neoplasm of breast (principal); C83.30 Diffuse large B-cell lymphoma, unspecified site
CPT/HCPCS: 70491; 71260; 74177; 77063; 77067; J1642; Q9967

== ENCOUNTER → 2021-01-23 12:56 | Outpatient (CLI) | payer MEDICARE, SELFPAY ==
--- NOTE | 2021-01-23 13:19 | XR_ITS ---
PROCEDURE: XR CHEST 2V CLINICAL HISTORY: HX OF HIGH BLOOD PRESSURE, PRE-OPERATIVE COMPARISON: CR CXR1VP XR chest portable from 08/28/2017 CR CXR1VP XR chest portable from 09/03/2017 CR CXR2V XR chest 2V from 09/11/[address] CHEST W CON from 10/17/2020 FINDINGS: The cardiomediastinal silhouette and pulmonary vascularity are within normal limits. MediPort catheter is present from right subclavian approach. The tip of the catheter is in region of the SVC. The right hemidiaphragm is chronically elevated with mild right basilar atelectasis. There is evidence of old granulomatous disease. No lobar consolidation or collapse. Degenerative changes of the thoracic spine with DISH of the thoracic spine. IMPRESSION: No acute finding. Dictated by: Jeremias Bhardwaj MD 01/24/2021 16:52 Jeremias Bhardwaj MD in [place] 01/24/2021 16:52
[2021-01-23 13:25] LABS: Basophils # 0.1 K/mm3 (0-0.2); Basophils % 0.9 % (0.1-2.0); Eosinophils # 0.5 K/mm3 (0.0-0.4); Eosinophils % 5.8 % (0.1-12.0); Hematocrit 45.7 % (37.0-47.0); Hemoglobin 15.9 g/dL (12.2-16.2); Lymphocytes # 1.4 K/mm3 (0.7-4.5); Lymphocytes % 15.6 % (10-50); Mean Corpuscular HGB Conc 34.8 g/dL (31.8-35.4); Mean Corpuscular Hemoglobin 32.7 pg (27.0-31.2); Mean Corpuscular Volume 94.2 fl (81-99); Mean Platelet Volume 7.1 fl (7.4-10.4); Monocytes # 0.3 K/mm3 (0.1-1.0); Monocytes % 3.8 % (1.7-9.3); Neutrophils # 6.5 K/mm3 (1.8-7.8); Neutrophils % 73.8 % (37.0-80.0); Platelet Count 193 K/mm3 (142-424); Red Blood Count 4.85 M/mm3 (4.20-5.40); Red Cell Distribution Width 14.3 % (11.5-17.5); White Blood Count 8.8 K/mm3 (4.8-10.8)
--- NOTE | 2021-01-23 13:45 | ECG_ITS ---
APPROVED REPORT Exam: Resting ECG HR:79 bpm ECG Measurements Heart Rate 79 AXES LA 186 P 59 QRSd 96 QRS 66 QT 410 T 55 QTc 470 Conclusion Sinus rhythm with marked sinus arrhythmia Low voltage QRS Borderline ECG Electronically signed by : Burt Khoury, 01/23/2021 17:42:24
[2021-01-23 14:41] LABS: Chloride 93 mmol/L (98-107); Potassium 4.6 mmoL/L (3.5-5.1); Sodium 134 mmol/L (136-145)
[2021-01-23 14:44] LABS: Alanine Aminotransferase 18 U/L (12-78); Albumin Level 4.8 g/dl (3.5-5.0); Albumin/Globulin Ratio 2.1 (1.1-1.8); Alkaline Phosphatase 86 U/L (38-126); Anion Gap 14.6 mEq/L (5-15); Aspartate Amino Transferase 25 U/L (14-36); Bilirubin,Total 0.5 mg/dl (0.2-1.3); Blood Urea Nitrogen 8 mg/dl (7-17); Carbon Dioxide 31 mmol/L (22.0-30.0); Estimated Glomerular Filt Rate 99 ml/min (>60); GFR (African American) 120 ML/MIN (>60); Globulin 2.3 g/dL (1.3-3.2); Total Protein,Serum 7.1 g/dl (6.3-8.2)
[2021-01-23 14:45] LABS: Calcium 9.4 mg/dl (8.4-10.2); Glucose 99 mg/dl (74-100)
== END ==
PROVIDERS: Visit Provider Family Medicine
DX: Z01.818 Encounter for other preprocedural examination (principal); Z11.52 Encounter for screening for COVID-19
CPT/HCPCS: 36415; 71046; 80053; 85025; 93005; U0003

== ENCOUNTER 2021-01-25 15:58 | Observation (INO) | payer MEDICARE, SELFPAY ==
[2021-01-23 09:27] VITALS: BMI 30.6
[2021-01-25] VITALS (22 sets, daily range): BP systolic 112–171; BP diastolic 51–84; PULSE 73–88; RESP 16–34; TEMP 36.4–37.2; O2SAT 90–97; BMI 33.7
--- NOTE | 2021-01-25 09:11 | HMH.ANESCL ---
[facility] Anesthesia Checklist - Additional verifications Anesthesia Reactions: Yes (morphine?) Hx Blood Transfusions: No Blood Transfusion Reaction: No [facility] History Medical History: Reports:: Asthma, Cancer (lymphoma), Chronic Obstructive Pulmonary Disease (COPD), Deep Vein Thrombosis, Depression, Diabetes Mellitus Type 2, Home Oxygen, Hyperlipidemia, Hypertension, Migraine Denies:: Diabetes Mellitus Type 1, Internal Pacemaker, MRSA, Seizures *Have you ever received a pneumonia vaccine?: Yes *Have you received a flu vaccine this season?: Yes Other Medical History: Reports: Cataracts, Chemotherapy. Denies: Blood Transfusion Reaction Laterality Cases: Left: Arthroscopy Knee, Bilateral: Tonsillectomy Other Surgeries: Yes: Appendectomy, Cancer Surgery, Cholecystectomy, Colonoscopy, EGD, Hysterectomy-Partial, Plastic Surgery, Other. No: Pacemaker Amputation: No Fractures: Yes - *Social History Last grade of school completed: High school graduate Smoking Status: Never smoker Tobacco Type: cigarettes # Packs/Day (cigarettes): 0 #Yrs smoked (if former smoker): 20 Alcohol Intake: never Alcohol Intake Frequency:: other Substance Use Type: denies use *Occupational Status:: disabled Housing: house Household Members: spouse *Travel in the last 8 weeks: None - Psychiatric History Pschychiatric History:: Reports:: Depression Family Hx:: Cancer
[2021-01-25 09:46] LABS: POC Glucose,Bedside 133 (70-110)
--- NOTE | 2021-01-25 13:14 | HMH.ANESCL ---
[facility] Anesthesia Checklist - Patient Identification Patient Identification: Arm Band - Structural Data Admitted From: Home Planned Operative Procedure/s: Full mouth extraction Consent for Planned Operative Procedure(s) Verified: Yes Verified Documents: Surgical Consent, History and Physical - Additional verifications Anesthesia Reactions: Yes (morphine?) Hx Blood Transfusions: No Blood Transfusion Reaction: No - Airway Assessment C-Spine Mobility Assessed: Yes TMJ Mobility Assessed: Yes Dentition: Poor Dentition - Neurological Assessment Level of Consciousness: Awake, Alert - Anesthesia Plan Anesthesia Risk discussed: Yes Anesthesia Plan: Verified ASA Class: III Anesthesia Type: General [facility] History Medical History: Reports:: Asthma, Cancer (lymphoma), Chronic Obstructive Pulmonary Disease (COPD), Deep Vein Thrombosis, Depression, Diabetes Mellitus Type 2, Home Oxygen, Hyperlipidemia, Hypertension, Migraine Denies:: Diabetes Mellitus Type 1, Internal Pacemaker, MRSA, Seizures *Have you ever received a pneumonia vaccine?: Yes *Have you received a flu vaccine this season?: Yes Other Medical History: Reports: Cataracts, Chemotherapy. Denies: Blood Transfusion Reaction Anesthesia experience/problems:: None Laterality Cases: Left: Arthroscopy Knee, Bilateral: Tonsillectomy Other Surgeries: Yes: Appendectomy, Cancer Surgery, Cholecystectomy, Colonoscopy, EGD, Hysterectomy-Partial, Plastic Surgery, Other. No: Pacemaker Amputation: No Fractures: Yes - *Social History Last grade of school completed: High school graduate Smoking Status: Never smoker Tobacco Type: cigarettes # Packs/Day (cigarettes): 0 #Yrs smoked (if former smoker): 20 Alcohol Intake: never Alcohol Intake Frequency:: other Substance Use Type: denies use *Occupational Status:: disabled Housing: house Household Members: spouse *Travel in the last 8 weeks: None - Psychiatric History Pschychiatric History:: Reports:: Depression Family Hx:: Cancer
--- NOTE | 2021-01-25 16:21 | XR_ITS ---
PROCEDURE INFORMATION: Exam: XR Chest Exam date and time: 01/25/2021 4:21 PM Age: 70 years old Clinical indication: Shortness of breath; Patient HX: Post op breathing issues TECHNIQUE: Imaging protocol: XR of the chest. Views: 1 view. Portable AP exam 4:30 p.m. COMPARISON: CR XR CHEST 2V 01/23/2021 2:03 PM FINDINGS: Tubes, catheters and devices: Indwelling right central venous catheter unchanged with tip projected over the superior vena cava. Overlying nurse monitoring electrodes and oxygen tubing. Lungs: There is chronic elevation of the right hemidiaphragm compared with 01/23/2021, with right lower pulmonary volume loss. There is increased left retrocardiac atelectasis compared with the prior study. No definite consolidation. Pleural spaces: Unremarkable. No significant pleural effusion. No pneumothorax. Heart/Mediastinum: The cardiac silhouette is normal. Bones/joints: Prominent spinal degenerative changes, multilevel disc narrowing and spondylosis. Mild bilateral acromioclavicular arthritis. Soft tissues: Right upper quadrant abdominal surgical clips, correlate for cholecystectomy. IMPRESSION: 1. Increased left retrocardiac atelectasis compared with 01/23/2021; no definite consolidation. 2. Chronic elevated right diaphragm with right lower pulmonary volume loss, unchanged. 3. Additional nonemergency and chronic findings as above.
--- NOTE | 2021-01-25 16:22 | HMH.HP ---
*Admission Date: 01/25/21 <Zoya Melgoza 01/25/21 16:25> *Chief complaint: nose bleed after surgical procedure <Zoya Melgoza 01/25/21 16:25> *History of present illness: Ms. Fowler is a 70yo female who had dental surgery this am. She had 22 teeth extracted. She was nasally intubated and when she was extubated, she had a nosebleed and had to be orally intubated so the nose bleed could be stopped. The surgeon feels she will need to be kept overnight for monitoring. She just arrived to the 2nd floor and is on a nonrebreather. She states she is somewhat short of breath but just wants to go home. <Zoya Melgoza 01/25/21 17:31> [facility] History I have reviewed the patient's past medical history: Yes <Zoya Melgoza 01/25/21 16:25> Medical History: Reports:: Asthma, Cancer (lymphoma), Chronic Obstructive Pulmonary Disease (COPD), Deep Vein Thrombosis, Depression, Diabetes Mellitus Type 2, Home Oxygen, Hyperlipidemia, Hypertension, Migraine Denies:: Diabetes Mellitus Type 1, Internal Pacemaker, MRSA, Seizures <Zoya Melgoza 01/25/21 16:25> *Have you ever received a pneumonia vaccine?: Yes <Zoya Melgoza 01/25/21 16:25> *Have you received a flu vaccine this season?: Yes <Zoya Melgoaz 01/25/21 16:25> Other Medical History: Reports: Cataracts, Chemotherapy. Denies: Blood Transfusion Reaction <Zoya Melgoza 01/25/21 16:25> Anesthesia experience/problems:: None <Zoya Melgoza 01/25/21 16:25> Laterality Cases: Left: Arthroscopy Knee, Bilateral: Tonsillectomy <Zoya Melgoza 01/25/21 16:25> Other Surgeries: Yes: Appendectomy, Cancer Surgery, Cholecystectomy, Colonoscopy, EGD, Hysterectomy-Partial, Plastic Surgery, Other. No: Pacemaker <Zoya Melgoza 01/25/21 16:25> Amputation: No <Zoya Melgoza 01/25/21 16:25> Fractures: Yes <Zoya Melgoza 01/25/21 16:25> - *Social History Last grade of school completed: High school graduate <RicardosonyaZoya 01/25/21 16:25> Smoking Status: Never smoker <RicardoZoya hassan 01/25/21 16:25> Tobacco Type: cigarettes <RicardoZoya hassan 01/25/21 16:25> # Packs/Day (cigarettes): 0 <RicardoZoya hassan 01/25/21 16:25> #Yrs smoked (if former smoker): 20 <Zoya Melgoza 01/25/21 16:25> Alcohol Intake: never <RicardosonyaZoya 01/25/21 16:25> Alcohol Intake Frequency:: other <Zoya Melgoza 01/25/21 16:25> Substance Use Type: denies use <Zoya Melgoza 01/25/21 16:25> *Occupational Status:: disabled <Zoya Melgoza 01/25/21 16:25> Housing: house <Zoya Melgoza 01/25/21 16:25> Household Members: spouse <Zoya Melgoza 01/25/21 16:25> *Travel in the last 8 weeks: None <Zoya Melgoza 01/25/21 16:25> - Psychiatric History Pschychiatric History:: Reports:: Depression <Zoya Melgoza 01/25/21 16:25> Family Hx:: Cancer <Zoya Melgoza 01/25/21 16:25> Review of Systems - Constitutional Denies chills, Denies fever(s) <Zoya Melgoza 01/25/21 17:31> - Eyes Denies blurry vision, Denies double vision <Zoya Melgoza 01/25/21 17:31> - ENT Reports nose pain, Denies sore throat <Zoya Melgoza 01/25/21 17:31> - *Cardiovascular Reports shortness of breath, Denies chest pain <Zoya Melgoza 01/25/21 17:31> - *Respiratory Reports shortness of breath, Denies cough <Zoya Melgoza 01/25/21 17:31> - *Gastrointestinal Denies abdominal pain, Denies loose stools, Denies nausea, Denies vomiting <Zoya Melgoza 01/25/21 17:31> - *Genitourinary Denies difficulty urinating, Denies painful urination <Zoya Melgoza 01/25/21 17:31> - *Musculoskeletal Reports back pain <Zoya Melgoza 01/25/21 17:31> - *Neurologic Denies headache(s), Denies weakness <Zoya Melgoza 01/25/21 17:31> Meds Home Medications Medication Instructions Recorded Confirmed Type Levothyroxine Sodium [Synthroid 125 mcg PO DAILY 08/20/17 01/17/21 History 125mcg (0.125mg) tablet] Montelukast Sodium [Singulair 10mg 10 mg PO PM 08/20/17 01/17/21 History tablet] Rop
[2021-01-25 16:45] LABS: Hematocrit 41.9 % (37.0-47.0); Hemoglobin 14.5 g/dL (12.2-16.2)
--- NOTE | 2021-01-25 17:43 | P.PN_ITS ---
[facility] Anesthesia Record Part I Intake, IV Amount: 2,000 Estimated blood loss (mL): 200 Urine output (mL): 0 Blood Pressure: 136/79 SaO2: 93 Pulse Rate: 80 Respiratory Rate: 34 Temperature: 97.9 F Patient is:: Awake, Drowsy Stable to PACU at:: 16:25
--- NOTE | 2021-01-25 17:57 | P.PCN_ITS ---
Date of procedure: 01/25/21 Date of : 1950 Pre-op Diagnosis:: Severe dental decay and advanced periodontal disease. Post-op diagnosis:: same Procedure performed:: The 70, F patient was transported to the [facility] OR pre operative holding room. In the holding room, an IV was started. The patient was then transported to the operating room where Nelida was nasotracheal intubated. Anesthesia was induced and maintained. The patient was draped in the usual manner. The throat was suctioned free of debris. One single moist throat pack was placed in the posterior oral pharynx. A complete intra-oral exam and review of x-rays was completed. The following teeth were restored as follows: Tooth #2, #3, #4, #5, #6, #7, #8, #9, #10, #11, #12, #13, #14, #15, #18, #19, #20, #22, #23, #28, #30, #31 were removed using forceps. Alveleoplasty was performed in conjuction with extractions on the UR, LR, UL, and LL quadrants. Estimated blood loss was approximately 100cc. The patient tolerated all surgical procedures well and there were no surgical complications. The throat was irrigated and suctioned free of debris. The throat pack was removed. The patient was extubated without complications and taken to the postoperative anesthetic r ecovery room in satisfactory condition. Surgeon:: Johanna Giles DMD Silk Screen Painter(s):: Jessica Montalvo REHABILITATION SPECIALIST:: Arun Mir Anesthesia: GETA Estimated blood loss (mL): 100 Operative findings:: same as procedure performed Operative note:: same Disposition: observation (Admitted to Room 215 for overnight observation due to bleeding from extractions and nose bleed from intubation. Also, slow to wake up and maintain stats.) Specimens:: Twenty two teeth were disposed of. Complications:: None
--- NOTE | 2021-01-25 19:34 | PC.NURSE ---
SHE IS AOX4, ABLE TO MAKE NEEDS KNOWN TO STAFF. SHE HAS REQUIRED NON-REBREATHER AT 15LPM SINCE ARRIVAL TO THE FLOOR. DR DEL ANGEL IS AWARE OF THE SITUATION AND WANTS PTS O2 GREATER THAT 90%. MOUTH CARE WAS PERFORMED WHEN SHE ARRIVED TO THE FLOOR. LARGE AMOUNT OF DRIED BLOOD WAS CLEANED FROM TONGUE AND INSIDE OF MOUTH. HER VITAL SIGNS HAVE BEEN STABLE. SHE DENIES N/V/D OR ABD PAIN. BOWEL SOUNDS ARE ACTIVE IN ALL FOUR QUADRANTS. SHE WAS GIVEN 4MG MORPHINE FOR HER PAIN WITH GOOS EFFECTIVENESS.
[2021-01-25 21:46] LABS: POC Glucose,Bedside 145 (70-110)
[2021-01-26 00:10] VITALS: RESP 18
--- NOTE | 2021-01-26 03:56 | PC.NURSE ---
Patient is alert & oriented x4. Patient has been in quite a bit of pain this shift & MD was notified. She has had complaints of a headache, her mouth hurting (post-op full mouth teeth extraction), and back pain. Patient's mouth has had minimum bleeding and some nose bleeding noted. Patient's port is infusing per MAR. The IV in her left forearm was d/c due to tenderness and difficulty flushing. Patient came off of post-op vitals at 2345 and has remained stable. Patient has remained on a non-rebreather through the night, attempt to come off the non-rebreather with little success. She was able to swallow her night time meds. Patient is voiding via purewick. Call light is within reach. Will continue to monitor.
[2021-01-26 04:00] VITALS: BP 107/50; PULSE 75; RESP 18; TEMP 37.5; O2SAT 92
[2021-01-26 04:43] VITALS: BMI 32.6
[2021-01-26 05:36] LABS: POC Glucose,Bedside 161 (70-110)
[2021-01-26 05:55] LABS: Blood Urea Nitrogen 9 mg/dl (7-17); Carbon Dioxide 33 mmol/L (22.0-30.0); Chloride 100 mmol/L (98-107); Creatinine Clearance Estimated 73 mL/min (50-200); Estimated Glomerular Filt Rate 122 ml/min (>60); GFR (African American) 148 ML/MIN (>60); Glucose 149 mg/dl (74-100); Sodium 136 mmol/L (136-145)
[2021-01-26 05:58] LABS: Basophils % 0.2 % (0.1-2.0); Eosinophils % 0.1 % (0.1-12.0); Hematocrit 36.1 % (37.0-47.0); Lymphocytes # 0.7 K/mm3 (0.7-4.5); Lymphocytes % 6.6 % (10-50); Mean Corpuscular HGB Conc 34.2 g/dL (31.8-35.4); Mean Corpuscular Hemoglobin 32.5 pg (27.0-31.2); Mean Platelet Volume 7.4 fl (7.4-10.4); Monocytes # 0.3 K/mm3 (0.1-1.0); Monocytes % 2.8 % (1.7-9.3); Neutrophils % 90.3 % (37.0-80.0); Platelet Count 177 K/mm3 (142-424); Red Cell Distribution Width 14.5 % (11.5-17.5)
[2021-01-26 06:00] LABS: MANUAL DIFFERENTIAL MANUAL DIFFERENTIAL (MANUAL DIFF)
[2021-01-26 06:20] LABS: Hemoglobin 12.4 g/dL (12.2-16.2)
[2021-01-26 06:43] LABS: Lymphocytes % 14 % (10-50); Monocytes % 1 % (2-9); Neutrophils % 85 % (42-76); Platelet Estimate Normal; RBC Morphology Normal; Total Cells Counted 100
--- NOTE | 2021-01-26 07:19 | HMH.PHAVTE ---
[facility] Pharmacy VTE Monitoring - Patient Demographics Admission date: 01/26/21 Report Date: 01/26/21 Time: 07:19 Allergies/Adverse Reactions: Patient Allergies cefdinir [From OMNICEF] Allergy (Intermediate, Verified 01/25/21 09:21) I-RASH floxacillin [FLOXACILLIN] Allergy (Intermediate, Verified 01/25/21 09:21) I-RASH penicillin G [PENICILLIN G] Allergy (Intermediate, Verified 01/25/21 09:21) I-RASH Sulfa (Sulfonamide Antibiotics) [SULFA (SULFONAMIDE ANTIBIOTICS)] Allergy (Intermediate, Verified 01/25/21 09:21) RED/RASH acetylcysteine [ACETYLCYSTEINE] Allergy (Unknown, Verified 01/25/21 09:21) UNKNOWN fluconazole [From DIFLUCAN] Allergy (Unknown, Verified 01/25/21 09:21) UNKNOWN NOT SURE IF ALLERGIC lubiprostone [From AMITIZA] Allergy (Unknown, Verified 01/25/21 09:21) UNKOWN topiramate [From TOPAMAX] Allergy (Unknown, Verified 01/25/21 09:21) UNKNOWN phenyltoloxamine [From Staflex] Allergy (Verified 01/25/21 09:21) midazolam [MIDAZOLAM] Adverse Reaction (Mild, Verified 01/25/21 09:21) NA-NAUSEA/VOMITING Height: 1.65 m Weight: 88.924 kg Patient Problems: Current Active Problems Follicular lymphoma (Chronic) Asthma (Chronic) Postsurgical epistaxis (Acute) History of dental surgery (Acute) Hypertension (Chronic) Hyperlipidemia (Chronic) Depression (Chronic) Anxiety (Acute) History of DVT (deep vein thrombosis) (Chronic) COPD (chronic obstructive pulmonary disease) (Chronic) Hypoxemia (Acute) Hypothyroidism (Acute) Type 2 diabetes mellitus (Acute) - VTE Risk Labs: VTE Related Lab Results Hgb 12.4 g/dL (12.2-16.2) D 01/26/21 05:42 Hct 36.1 % (37.0-47.0) L 01/26/21 05:42 Plt Count 177 K/mm3 (142-424) 01/26/21 05:42 BUN 9 mg/dl (7-17) 01/26/21 05:00 Creatinine 0.50 mg/dl (0.52-1.04) L 01/26/21 05:00 Estimated Creat Clear 73 mL/min (50-200) 01/26/21 05:00 Was VTE Risk Assessment Performed: Yes VTE Score: 6 VTE Risk Level: Moderate Risk Clinical Trial Participant: No - Prophylaxis VTE Prophylaxis Ordered?: Yes Types of VTE Prophylaxis: TEDS Knee High Location of Applied Device: Bilateral Lower Extremeties
[2021-01-26 07:40] VITALS: BP 133/64; PULSE 86; RESP 18; TEMP 37.2; O2SAT 95
--- NOTE | 2021-01-26 08:20 | HMH.ACPN2 ---
Internal Medicine - PN: Subj *Date: 01/26/21 *Time: 08:20 Interval history: Patient states she feels like she got better. Her mouth is extremely sore. She has been able to drink and eat some Jell-O. She has had only minimal bleeding from the nose. She is now off the nonrebreather and on nasal oxygen. She states she did not rest all night long due to pain. Exam Vital signs and Labs for Last 24 Hours: Temp Pulse Resp BP Pulse Ox 98.9 F 86 18 133/64 95 01/26/21 07:40 01/26/21 07:40 01/26/21 07:40 01/26/21 07:40 01/26/21 07:40 Laboratory Results - last 24 hr 01/25/21 09:30: POC Glucose 133 H 01/25/21 16:37: Hgb 14.5, Hct 41.9 01/25/21 20:57: POC Glucose 145 H 01/26/21 04:38: POC Glucose 161 H 01/26/21 05:00: Sodium 136, Potassium 4.0, Chloride 100, Carbon Dioxide 33 H, Anion Gap 7.0, BUN 9, Creatinine 0.50 L, Estimated Creat Clear 73, Estimated GFR 122, Est GFR ( Amer) 148 D, Glucose 149 H, Calcium 8.0 L D 01/26/21 05:42: WBC 10.0, RBC 3.80 L, Hgb 12.4 D, Hct 36.1 L, MCV 95.0, MCH 32.5 H, MCHC 34.2, RDW 14.5, Plt Count 177, MPV 7.4, Neut % (Auto) 90.3 H, Lymph % (Auto) 6.6 L, Tyrrell % (Auto) 2.8, Eos % (Auto) 0.1, Baso % (Auto) 0.2, Neut # (Auto) 9.0 H, Lymph # (Auto) 0.7, Tyrrell # (Auto) 0.3, Eos # (Auto) 0.0, Baso # (Auto) 0.0, Total Counted 100, Neutrophils % (Manual) 85 H, Lymphocytes % (Manual) 14, Monocytes % (Manual) 1 L, Platelet Estimate Normal, RBC Morphology Normal I & O for Last 24 hours: Intake & Output 07/0601/24/21 01/25/21 01/26/21 11:59 11:59 11:59 11:59 Intake Total 3000 / 3000 Output Total 0 / 0 Balance 3000 / 3000 Weight 184 lb 196 lb 0.7 oz - Constitutional no acute distress - *Routine HEENT Exam Comments: Dried blood in the right naris, there is significant ecchymosis and edema around the mouth from dental procedure - *Routine Respiratory Exam Present: CTA bilaterally - *Routine Cardiovascular Exam Present: RRR - *Routine Abdominal Exam Present: soft, normoactive bowel sounds. Absent: tenderness - *Routine Extremities Exam Present: edema (Trace). Absent: cyanosis, clubbing - *Routine Neurological Exam Present: alert, oriented X3 Assessment and Plan (1) Postsurgical epistaxis Status: Acute Category: Medical Code(s): R04.0 - Epistaxis; Z98.890 - Other specified postprocedural states (2) History of dental surgery Status: Acute Category: Surgical Code(s): Z92.89 - Personal history of other medical treatment (3) Hypertension Status: Chronic Category: Medical Code(s): I10 - Essential (primary) hypertension (4) Hyperlipidemia Status: Chronic Category: Medical Code(s): E78.5 - Hyperlipidemia, unspecified (5) Depression Status: Chronic Category: Medical Code(s): F32.9 - Major depressive disorder, single episode, unspecified (6) Anxiety Status: Acute Category: Medical Code(s): F41.9 - Anxiety disorder, unspecified (7) Follicular lymphoma Status: Chronic Category: Medical Code(s): C82.90 - Follicular lymphoma, unspecified, unspecified site (8) Asthma Status: Chronic Category: Medical Code(s): J45.909 - Unspecified asthma, uncomplicated (9) History of DVT (deep vein thrombosis) Status: Chronic Category: Medical Code(s): Z86.718 - Personal history of other venous thrombosis and embolism (10) COPD (chronic obstructive pulmonary disease) Status: Chronic Category: Medical Code(s): J44.9 - Chronic obstructive pulmonary disease, unspecified (11) Hypoxemia Status: Acute Category: Medical Code(s): R09.02 - Hypoxemia (12) Hypothyroidism Status: Acute Category: Medical Code(s): E03.9 - Hypothyroidism, unspecified (13) Type 2 diabetes mellitus Status: Acute Category: Medical Code(s): E11.9 - Type 2 diabetes mellitus without complications - Assessment and plan all Dx Assessment and Plan for all problems:: Epistaxis has resolved. Patient is able to
--- NOTE | 2021-01-26 08:56 | XR_ITS ---
PROCEDURE: XR CHEST 2V CLINICAL HISTORY: Decreased oxygen saturation. Rhonchi. COMPARISON: CR CXR2V XR chest 2V from 09/11/[address] CHEST W CON from 10/17/2020 CR XR CHEST 2V from 01/23/2021 CR XR CHEST PORTABLE from 01/25/2021 FINDINGS: Chronic elevation of the right hemidiaphragm with atelectatic changes in the right lung base. Patchy density also noted in the retrocardiac region on the left consistent with atelectasis or infiltrate probably unchanged. Right subclavian MediPort catheter is present with the tip in the region the SVC. Suspect trace bilateral effusions. Degenerative changes thoracic spine. IMPRESSION: Right basilar atelectasis which is slightly worse. Left basilar atelectasis or infiltrate unchanged with trace bilateral effusions Dictated by: Jeremias Bhardwaj MD 01/26/2021 11:49 Jeremias Bhardwaj MD in OV 01/26/2021 11:49
--- NOTE | 2021-01-26 10:47 | PC.NURSE ---
Pt weaned to 2L NC which is patients baseline, o2 SAT 95%; Ice pack and cool rag given to patient for face.
--- NOTE | 2021-01-26 11:46 | PC.NURSE ---
Pt is 88% on RA
[2021-01-26 11:50] VITALS: O2SAT 88
--- NOTE | 2021-01-26 11:50 | PC.NURSE ---
Pt is alert and oriented x4. Lungs are clear, bowel sounds active x4. She is currently on 2L NC with O2 sat measuring 95%. RA 88%. She states she wears O2 at home at 2 L NC. She has complained of a migraine. Dr Tello notified and Fioricet PO tid ordered. She has also complained of back pain. Pt states this is not new, that she has chronic back pain. Warm blanket and pillow applied to lower back and patient repositioned. She has used a BSC with assist x1. She states she wants to go home. Family is at bedside and are very supportive.
[2021-01-26 11:52] LABS: POC Glucose,Bedside 118 (70-110)
[2021-01-26 11:56] VITALS: BP 112/50; PULSE 80; RESP 17; TEMP 36.3; O2SAT 94
--- NOTE | 2021-01-26 14:11 | HMH.PHAINT ---
DISCHARGE MEDICATION COUNSELING COMPLETED. PATIENT REPORTS NO QUESTIONS OR CONCERNS AT THIS TIME. WILL RESTART ELIQUIS 01/27/21 PER MD DIRECTION.
[2021-01-26 14:48] LABS: Microscopic, Urine URINE MICROSCOPIC (MICROSCOPIC)
[2021-01-26 14:56] LABS: Appearance,Urine SL CLOUDY (Clear); Bilirubin,Urine Negative (Negative); Blood, Urine 3+ (Negative); Color,Urine YELLOW (Yellow); Glucose,Urine (UA) Negative (Negative); Ketones,Urine Negative (Negative); Leukocyte Esterase,Urine 2+ (Negative); Nitrate,Urine POSITIVE (Negative); PH,Urine 6.5 (5.0-8.5); Protein,Urine 1+ (Negative); Urobilinogen,Urine 0.2 EU/dl (0.2)
[2021-01-26 15:15] LABS: Bacteria,Urine 2+ /lpf; Squamous Epithelial Cell,Urine Occasional #/hpf (0-5)
--- NOTE | 2021-01-29 14:11 | HMH.ANESII ---
[facility] Anesthesia Record Part II Discharge Time: 16:55 Destination: Medical Surgical Department PACU nurse assessment reviewed?: Yes Patient Condition:: Good Anesthesia Complications:: None Swallowing reflex intact?: Yes Cyanosis?: No Blood Pressure: 158/70 Pulse Rate: 76 Temperature: 97.9 F Mental Status: Alert & Oriented Pain level:: 0 Nausea and/or vomitting:: None Intake, IV Amount: 0
[2021-01-29 14:13] VITALS: BP 158/70; PULSE 76; TEMP 36.6
--- NOTE | 2021-01-30 22:14 | HMH.DCSUM ---
General - General Admission date:: 01/25/21 Discharge date: 01/26/21 HPI HPI: Ms. Fowler is a 70yo female who had dental surgery this am. She had 22 teeth extracted. She was nasally intubated and when she was extubated, she had a nosebleed and had to be orally intubated so the nose bleed could be stopped. The surgeon feels she will need to be kept overnight for monitoring. She just arrived to the 2nd floor and is on a nonrebreather. She states she is somewhat short of breath but just wants to go home. Hospital Course Hospital Course: The patient was admitted overnight to monitor for monitoring to make sure there was no further epistaxis. Her Eliquis was held and her oxygen was weaned. Her initial chest x-ray showed possible atelectasis but no clear sign of aspiration. Duo nebs were added as needed. She was on chronic pain medication at home, but IV morphine was ordered for postop pain until she could safely swallow. She was started on RENETTA hose for DVT prophylaxis. By 01/26/2021, she was feeling better. She stated her mouth was extremely sore, but she had been able to drink and eat some Jell-O. She had only had minimal bleeding from the nose and was off of the nonrebreather and on nasal oxygen. She did not rest well due to pain. A repeat chest x-ray was ordered. It showed right basilar atelectasis and left basilar atelectasis unchanged with trace bilateral effusions. The patient was weaned down to 2 L of nasal oxygen with sats at 94%. She was 88% on room air and it was felt she was stable to be discharged and she can resume her Eliquis on 01/27/21. Objective Vital signs: Temp Pulse Resp BP Pulse Ox 97.9 F 76 17 158/70 H 94 L 01/29/21 14:13 01/29/21 14:13 01/26/21 11:56 01/29/21 14:13 01/26/21 11:56 Narrative: - Constitutional no acute distress <Zoya Melgoza - 01/25/21 17:31> Comments: Patient is still mildly confused from anesthesia, she does try to answer questions but continually states she wants to go home - *Routine HEENT Exam Head: Present: normocephalic Eye: Present: EOMI, PERRL ENT: Present: mucous membranes dry, other (, No active bleeding) - *Routine Neck Exam Present: supple. Absent: lymphadenopathy - *Routine Respiratory Exam Present: decreased breath sounds, wheezes - *Routine Cardiovascular Exam Present: RRR - *Routine Abdominal Exam Present: soft, normoactive bowel sounds. Absent: tenderness - *Routine Rectal Exam Rectal:: deferred - *Routine Genitalia Exam Genitalia:: deferred - *Routine Extremities Exam Absent: cyanosis, clubbing, edema - *Routine Skin Exam Present: warm. Absent: rash - *Routine Neurological Exam Present: alert (Awake but still slightly confused after anesthesia) DS: Diagnosis - Discharge Diagnosis (1) Postsurgical epistaxis Status: Acute (2) History of dental surgery Status: Acute (3) Hypertension Status: Chronic (4) Hyperlipidemia Status: Chronic (5) Depression Status: Chronic (6) Anxiety Status: Acute (7) Follicular lymphoma Status: Chronic (8) Asthma Status: Chronic (9) History of DVT (deep vein thrombosis) Status: Chronic (10) COPD (chronic obstructive pulmonary disease) Status: Chronic (11) Hypoxemia Status: Acute (12) Hypothyroidism Status: Acute (13) Type 2 diabetes mellitus Status: Acute Discharge Plan - Patient Discharge Instructions ACTIVITY: Continue current activity DIET: advance to your usual diet Patient Instructions: DI for Tooth Extraction, DI for Nosebleed - Follow up Plan Follow up with: Daniel Tello MD [Primary Care Provider] - 02/05/21 2:15 pm Johanna Giles DMD [Staff Physician] - 01/29/21 11:00 am Unknown provider or service follow up:: 01/26/21 13:[address] Giles for dental follow-up. Disposition: Home, Self-Care Condition at discharge:: Stable Home Medications: Home Medications
== END 2021-01-26 15:10 | disposition home or self-care (01) ==
LOC: 2ND 16:01
PROVIDERS: Admitting Provider Family Medicine; PCP Family Medicine; Referring Provider Dentist General Practice; Visit Provider Family Medicine
PROC: (CPT 41899; principal; 2021-01-25 09:45)
DX: K02.9 Dental caries, unspecified (principal); R04.0 Epistaxis; I10 Essential (primary) hypertension; E03.9 Hypothyroidism, unspecified; E78.5 Hyperlipidemia, unspecified; F32.9 Major depressive disorder, single episode, unspecified; F41.9 Anxiety disorder, unspecified; C82.90 Follicular lymphoma, unspecified, unspecified site; E11.9 Type 2 diabetes mellitus without complications; Z99.81 Dependence on supplemental oxygen; J44.9 Chronic obstructive pulmonary disease, unspecified; Z86.718 Personal history of other venous thrombosis and embolism
CPT/HCPCS: 41899; 36415; 71045; 71046; 80048; 81001; 82962; 85007; 85014; 85018; 85025; 87086; 87088; 87186; 94640; G0378; J0330; J1642; J2405

== ENCOUNTER → 2021-02-05 12:35 | Outpatient (POV) | payer MEDICARE, SELFPAY ==
[2021-02-05 12:48] VITALS: BP 150/73; PULSE 92; RESP 18; BMI 30.6
--- NOTE | 2021-02-05 12:52 | HMH.PAINSOAP ---
[facility] Pain Management SOAP Note Subjective:: Patient is a 70-year-old white female who presents today for follow-up and for medication refills. She is being treated for degenerative disc disease lumbar spine with lumbar radiculopathy symptoms and knee pain. Patient recently had oral surgery for which she had teeth extraction. She did have some complications following the surgery and was intubated. She is doing better at this time. She was given a few days of [place] by her oral surgeon. She is managed in our clinic with gabapentin 600 mg 1 tablet p.o. 4 times daily, Cymbalta 30 mg 2 tablets p.o. daily, and [place] 10 mg 1 tablet p.o. 6 times daily. She denies any side effects to the medication. Her Cole #[id number] has been reviewed and is appropriate. Morphine equivalent is 60. She rates her pain a 7 out of 10. Review of Systems General: No recent weight changes, no fever, no sleep disturbances Respiratory: No cough, no shortness of air, no recurring pulmonary infections Cardiovascular/peripheral vascular: No chest pain, no palpitations, no edema, no shortness of breath Gastrointestinal: No new onset incontinence, normal bowel movements reported Genitourinary: No new onset incontinence Musculoskeletal: Chronic low back pain Psychiatric: Normal mood/affect Neurological: [Denies weakness in extremities], [denies balance issues] Objective:: Physical exam General: Alert and oriented x3, no acute distress, pleasant and cooperative, [on room air] Lungs: Respirations even and unlabored, symmetrical chest expansion Eyes: PERRL Musculoskeletal: Flexion and extension of [] lumbar spine somewhat guarded secondary to pain, deep tendon reflexes normal, strength in upper and lower extremities [5/5], [abnormal gait noted] Neurological: Speech clear, water quality specialist equal, no gross sensory deficit Assessment:: Degenerative disc disease lumbar spine with lumbar radiculopathy symptoms Plan:: We will refill the patient's [place] 10 mg 1 tablet p.o. every 4 hours, Cymbalta 30 mg 2 tablets p.o. daily, and gabapentin 600 mg 1 tablet p.o. 4 times daily. Patient will get a month medication and will be seen back in the clinic in 1 month for reevaluation of symptoms. She has been instructed to contact the clinic if she has any concerns for next appointment. Patient has been prescribed a controlled substance after being counseled on the medication, medication safety, and possible side effects. COLE report has been obtained and reviewed prior to prescription and found to be appropriate. Opioid contract was reviewed and signed by the patient, and that they have agreed to all of the terms set forth by our compliance program. Risks and benefits of the medication have been explained in detail to the patient. The patient has been advised to consult with his/her primary care provider and pharmacist regarding drug-drug interaction of medications currently prescribed. Patient has been instructed to contact the clinic with any concerns before the next appointment. Dr. Small has reviewed this note and agrees with this plan of care. This note was dictated using voice recognition software and make contain errors or omissions. [facility] History I have reviewed the patient's past medical history: Yes Medical History: Reports:: Asthma, Cancer (lymphoma), Chronic Obstructive Pulmonary Disease (COPD), Deep Vein Thrombosis, Depression, Diabetes Mellitus Type 2, Home Oxygen, Hyperlipidemia, Hypertension, Migraine Denies:: Diabetes Mellitus Type 1, Internal Pacemaker, MRSA, Seizures *Have you ever received a pneumonia vaccine?: Yes *Have you received a flu vaccine this season?: Yes Other Medical History: Reports: Cataracts, Chemotherapy. Denies: Blood Transfusion Reaction Laterality Cases: Left: Arthroscopy Knee, Bilateral: Tonsillectomy Other Surgeries: Yes: Appendectomy, Cancer Surgery, Cholecystectomy, Colonoscopy, EGD, Hysterectomy-Partial, Plastic Surgery, Other. No: Pacemaker A
[2021-02-05 15:17] LABS: Benzodiazepines Screen,Urine Positive ng/ml (<200)
[2021-02-05 15:18] LABS: Amphetamine/Metha Screen,Urine Negative ng/ml (<1000)
[2021-02-05 15:19] LABS: Barbiturates Screen,Urine Positive ng/ml (<200); Cannabinoid Screen,Urine Negative ng/ml (<50)
[2021-02-05 15:20] LABS: Cocaine Screen,Urine Negative ng/ml (<300); Methadone Screen,Urine Negative ng/ml (<300)
[2021-02-05 15:21] LABS: Opiate Screen,Urine Positive ng/ml (<300)
[2021-02-05 15:22] LABS: Phencyclidine Screen,Urine Negative ng/ml (<25)
[2021-02-14 14:12] LABS: Codeine Negative (Cutoff=100); Hydrocodone Positive (.); Hydromorphone Positive (.); Morphine Negative (Cutoff=100); Opiates Positive (.)
== END ==
PROVIDERS: PCP Family Medicine; Visit Provider Clinical Nurse Specialist Family Health
DX: M51.16 Intervertebral disc disorders with radiculopathy, lumbar region (principal); Z79.891 Long term (current) use of opiate analgesic
CPT/HCPCS: 80305; 80361; 80365; 99212; G0463; G0480

== ENCOUNTER → 2021-03-19 14:19 | Outpatient (POV) | payer MEDICARE, SELFPAY ==
[2021-03-19 14:15] VITALS: BP 184/88; PULSE 80; RESP 20; TEMP 36.4; O2SAT 99; BMI 30.7
--- NOTE | 2021-03-19 14:30 | HMH.PAINSOAP ---
[facility] Pain Management SOAP Note Subjective:: -year-old white female who presents today for medication refills. The patient is being treated for degenerative disc disease lumbar spine with lumbar radiculopathy symptoms and chronic knee pain. Patient rates her pain a 5 out of 10. Her medications are working well for her at this time. She is managed with gabapentin 600 mg 1 tablet p.o. 4 times daily, Cymbalta 30 mg 2 tablets p.o. daily, and [place] 10 mg 1 tablet p.o. 4 hours.. She denies any side effects. She is doing well with her medication regimen overall. Cole and drug screen are appropriate. Review of Systems General: No recent weight changes, no fever, no sleep disturbances Respiratory: No cough, no shortness of air, no recurring pulmonary infections Cardiovascular/peripheral vascular: No chest pain, no palpitations, no edema, no shortness of breath Gastrointestinal: No new onset incontinence, normal bowel movements reported Genitourinary: No new onset incontinence Musculoskeletal: Back pain and knee pain Psychiatric: [Normal mood/affect] Neurological: [Denies weakness in extremities], [denies balance issues] Objective:: Physical exam General: Alert and oriented x3, no acute distress, pleasant and cooperative, [on room air] Lungs: Respirations even and unlabored, symmetrical chest expansion Eyes: PERRL Musculoskeletal: Flexion and extension of lumbar [spine] somewhat guarded secondary to pain, strength in upper and lower extremities [5/5], [antalgic gait noted] Neurological: Speech clear, [reception clerk equal], no gross sensory deficit Assessment:: Degenerative disc disease lumbar spine with lumbar radiculopathy symptoms, chronic knee pain Plan:: We will refill the patient's [place] 10 mg 1 tab p.o. every 4 hours, Cymbalta 30 mg 2 tablets p.o. daily, and gabapentin 610 mg 1 tablet p.o. 4 times daily. We will give her a month medication and see her back in the clinic in 1 month. Risks and benefits of the medication have been explained in detail to the patient. The patient has been advised to consult with his/her primary care provider and pharmacist regarding drug-drug interaction of medications currently prescribed. Patient has been prescribed a controlled substance after being counseled on the medication, medication safety, and possible side effects. COLE report has been obtained and reviewed prior to prescription and found to be appropriate. Opioid contract was reviewed and signed by the patient, and that they have agreed to all of the terms set forth by our compliance program. Patient has been instructed to contact the clinic with any concerns before the next appointment. Dr. Small has reviewed this note and agrees with this plan of care. This note was dictated using voice recognition software and make contain errors or omissions. [facility] History I have reviewed the patient's past medical history: Yes Medical History: Reports:: Asthma, Cancer (lymphoma), Chronic Obstructive Pulmonary Disease (COPD), Deep Vein Thrombosis, Depression, Diabetes Mellitus Type 2, Home Oxygen, Hyperlipidemia, Hypertension, Migraine Denies:: Diabetes Mellitus Type 1, Internal Pacemaker, MRSA, Seizures *Have you ever received a pneumonia vaccine?: Yes *Have you received a flu vaccine this season?: Yes Other Medical History: Reports: Cataracts, Chemotherapy. Denies: Blood Transfusion Reaction Laterality Cases: Left: Arthroscopy Knee, Bilateral: Tonsillectomy Other Surgeries: Yes: Appendectomy, Cancer Surgery, Cholecystectomy, Colonoscopy, EGD, Hysterectomy-Partial, Plastic Surgery, Other. No: Pacemaker Amputation: No Fractures: Yes - *Social History Smoking Status: Never smoker Tobacco Type: cigarettes # Packs/Day (cigarettes): 0 #Yrs smoked (if former smoker): 20 Alcohol Intake: never Alcohol Intake Frequency:: other Substance Use Type: denies use *Occupational Status:: retired Housing: house Household Members: spouse *Travel in the [facility]
== END ==
PROVIDERS: Visit Provider Clinical Nurse Specialist Family Health
DX: M51.16 Intervertebral disc disorders with radiculopathy, lumbar region (principal); M25.569 Pain in unspecified knee; G89.29 Other chronic pain
CPT/HCPCS: 99212; G0463

== ENCOUNTER → 2021-05-28 11:01 | Outpatient (POV) | payer MEDICARE, SELFPAY ==
--- NOTE | 2021-05-28 11:07 | HMH.VVPMSO ---
[facility] PM Virtual Visit SOAP Consent for virtual visit:: With the recent concerns about the COVID-19, we are trying to minimize exposure to you by shifting to telehealth appointments whenever possible. It restricts me from seeing you in person, but the trade off is protecting you during this pandemic. Can you see and hear me okay, and do you consent to this option? If not, I would be happy to see if we can reschedule your appointment in the future, when feasible. Has patient consented to this virtual visit?: Yes Subjective:: Patient is a 70-year-old white female who is following up today via telehealth to prevent Covid exposure. We did treat the patient for chronic low back pain with radiation into her bilateral knees. Patient is managed with Cymbalta 30 mg 2 tablets p.o. daily, [place] 10 mg 1 tablet p.o. every 4 hours, and gabapentin 600 mg 1 tablet p.o. 4 times daily. She does rate her pain a 7 out of 10 today. She says the medicine does gave her about 40 to 60% relief. She also takes Aleve in between [place] doses. Patient's Cole #[id number] has been reviewed and is appropriate. Morphine equivalent is 0. Drug screens are appropriate. Patient's baseline pain scale is 7 out of 10. Review of Systems General: No recent weight changes, no fever, no sleep disturbances Respiratory: No cough, no shortness of air, no recurring pulmonary infections Cardiovascular/peripheral vascular: No chest pain, no palpitations, no edema, no shortness of breath Gastrointestinal: No new onset incontinence, normal bowel movements reported Genitourinary: No new onset incontinence Musculoskeletal: Low back pain, bilateral knee pain Psychiatric: [Normal mood/affect] Neurological: [Denies weakness in extremities], [denies balance issues] Objective:: Physical exam General: Alert and oriented x3, no acute distress, pleasant and cooperative Assessment:: Degenerative disc disease lumbar spine with lumbar radiculopathy symptoms, bilateral knee pain Plan:: We will refill the patient's gabapentin 600 mg 1 tablet p.o. 4 times daily, Cymbalta 30 mg 2 tablets p.o. daily, and [place] 10 mg 1 tablet p.o. every 4 hours. We will plan to see the patient back in the clinic in 1 month. Risks and benefits of the medication have been explained in detail to the patient. The patient does understand the risk of dependence on the medication when given over a prolonged period. Patient has been advised of risks of oversedation with the prescribed medication. Narcan has been offered to the paitent in the event of oversedation. Patient has been advised that a family member should also be educated regarding administration of Narcan. The patient has been advised to consult with his/her primary care provider and pharmacist regarding drug-drug interaction of medications currently prescribed. Patient has been prescribed a controlled substance after being counseled on the medication, medication safety, and possible side effects. COLE report has been obtained and reviewed prior to prescription and found to be appropriate. Opioid contract was reviewed and signed by the patient, and that they have agreed to all of the terms set forth by our compliance program. Patient has been instructed to contact the clinic with any concerns before the next appointment. Dr. Small has reviewed this note and agrees with this plan of care. This note was dictated using voice recognition software and make contain errors or omissions. Time In:: 11:00 Time Out:: 11:09 [facility] History I have reviewed the patient's past medical history: Yes Medical History: Reports:: Asthma, Cancer (lymphoma), Chronic Obstructive Pulmonary Disease (COPD), Deep Vein Thrombosis, Depression, Diabetes Mellitus Type 2, Home Oxygen, Hyperlipidemia, Hypertension, Migraine Denies:: Diabetes Mellitus Type 1, Internal Pacemaker, MRSA, Seizures *Have you ever received a pneumonia vaccine?: Yes *Have you received a flu vac
== END ==
PROVIDERS: Visit Provider Clinical Nurse Specialist Family Health
DX: M51.16 Intervertebral disc disorders with radiculopathy, lumbar region (principal); M25.561 Pain in right knee; M25.562 Pain in left knee
CPT/HCPCS: 99212; G0463

== ENCOUNTER → 2021-07-09 11:46 | Outpatient (POV) | payer MEDICARE, SELFPAY ==
[2021-07-09 11:55] VITALS: PULSE 86; RESP 18; O2SAT 97; BMI 28.3
--- NOTE | 2021-07-09 12:44 | HMH.PAINSOAP ---
[facility] Pain Management SOAP Note Subjective:: Patient is a 70-year-old white female who presents today for medication refills. The patient is doing well with her medicines at this time. She is treated for chronic low back pain and bilateral knee pain. She does get up to 60 to 70% relief with her medication regimen. She does report that she is having a great deal of emotional distress due to her pet being ill and being told that the dog would not likely make it over the course of the next few days. She is very tearful today. She does say that the weather also worsens her pain. We managed her with Cymbalta 30 mg 2 tablets p.o. daily, [place] 10 mg 1 tablet p.o. every 4 hours, gabapentin 600 mg 1 tablet p.o. 4 times daily. The patient's Cole #[id number] has been reviewed and is appropriate. Drug screens are appropriate. Morphine equivalent is 0. Review of Systems General: No recent weight changes, no fever, no sleep disturbances Respiratory: No cough, no shortness of air, no recurring pulmonary infections Cardiovascular/peripheral vascular: No chest pain, no palpitations, no edema, no shortness of breath Gastrointestinal: No new onset incontinence, normal bowel movements reported Genitourinary: No new onset incontinence Musculoskeletal: Chronic low back pain, bilateral knee pain Psychiatric: [Normal mood/affect] Neurological: [Denies weakness in extremities], [denies balance issues] Objective:: Physical exam General: Alert and oriented x3, no acute distress, pleasant and cooperative Lungs: Respirations even and unlabored, symmetrical chest expansion Eyes: PERRL Musculoskeletal: Flexion and extension of lumbar [spine] somewhat guarded secondary to pain, [antalgic gait noted] Neurological: Speech clear, no gross sensory deficit Assessment:: Degenerative disc disease lumbar spine with lumbar radiculopathy symptoms Plan:: We will continue the patient's gabapentin 600 mg 1 tablet p.o. 4 times daily, [place] 10 mg 1 tablet p.o. every 4 hours, and Cymbalta 30 mg 2 tablets p.o. daily. She will get a month medication will be reevaluated via telehealth for refills next visit. Risks and benefits of the medication have been explained in detail to the patient. The patient does understand the risk of dependence on the medication when given over a prolonged period. Patient has been advised of risks of oversedation with the prescribed medication. Narcan has been offered to the paitent in the event of oversedation. Patient has been advised that a family member should also be educated regarding administration of Narcan. The patient has been advised to consult with his/her primary care provider and pharmacist regarding drug-drug interaction of medications currently prescribed. Patient has been prescribed a controlled substance after being counseled on the medication, medication safety, and possible side effects. COLE report has been obtained and reviewed prior to prescription and found to be appropriate. Opioid contract was reviewed and signed by the patient, and that they have agreed to all of the terms set forth by our compliance program. Patient has been instructed to contact the clinic with any concerns before the next appointment. Dr. Small has reviewed this note and agrees with this plan of care. This note was dictated using voice recognition software and make contain errors or omissions. [facility] History I have reviewed the patient's past medical history: Yes Medical History: Reports:: Asthma, Cancer (lymphoma), Chronic Obstructive Pulmonary Disease (COPD), Deep Vein Thrombosis, Depression, Diabetes Mellitus Type 2, Home Oxygen, Hyperlipidemia, Hypertension, Migraine Denies:: Diabetes Mellitus Type 1, Internal Pacemaker, MRSA, Seizures *Have you ever received a pneumonia vaccine?: Yes *Have you received a flu vaccine this season?: Yes Other Medical History: Reports: Cataracts, Chemotherapy. Denies: Blood Transfusion React
== END ==
PROVIDERS: Visit Provider Clinical Nurse Specialist Family Health
DX: M51.16 Intervertebral disc disorders with radiculopathy, lumbar region (principal)
CPT/HCPCS: 99212; G0463

== ENCOUNTER → 2021-08-09 11:22 | Outpatient (POV) | payer MEDICARE, SELFPAY ==
--- NOTE | 2021-08-09 11:32 | HMH.VVPMSO ---
[facility] PM Virtual Visit SOAP Consent for virtual visit:: With the recent concerns about the COVID-19, we are trying to minimize exposure to you by shifting to telehealth appointments whenever possible. It restricts me from seeing you in person, but the trade off is protecting you during this pandemic. Can you see and hear me okay, and do you consent to this option? If not, I would be happy to see if we can reschedule your appointment in the future, when feasible. Has patient consented to this virtual visit?: Yes Subjective:: Patient is a 71-year-old white female who is presenting today for medication refills. She is very sick at this time with flulike symptoms. She has not been tested for COVID at this time. She is managed with Cymbalta 30 mg 2 tablets p.o. daily, [place] 10 mg 1 tablet p.o. every 4 hours, and gabapentin 60 mg 1 tablet p.o. 4 times daily. She is doing well with medications and does not need changes. [facility] #[id number] has been reviewed and is appropriate. Morphine equivalent is 60. She denies any side effects of medicines. Review of Systems General: No recent weight changes, no fever, no sleep disturbances Respiratory: Coughing, intermittent shortness of breath Cardiovascular/peripheral vascular: No chest pain, no palpitations, no edema, no shortness of breath Gastrointestinal: No new onset incontinence, normal bowel movements reported Genitourinary: No new onset incontinence Musculoskeletal: Chronic low back pain Psychiatric: [Normal mood/affect] Neurological: [Denies weakness in extremities], [denies balance issues] Objective:: Physical exam General: Alert and oriented x3, no acute distress, pleasant and cooperative Assessment:: Degenerative disc disease lumbar spine with lumbar radiculopathy symptoms Plan:: We will continue patient's Cymbalta 30 mg 2 tablets p.o. daily, [place] 10 mg 1 tablet p.o. every 4 hours, gabapentin 600 mg 1 tablet p.o. 4 times daily. She will get a month medication will be seen back in the clinic in 1 month. Risks and benefits of the medication have been explained in detail to the patient. The patient does understand the risk of dependence on the medication when given over a prolonged period. Patient has been advised of risks of oversedation with the prescribed medication. Narcan has been offered to the paitent in the event of oversedation. Patient has been advised that a family member should also be educated regarding administration of Narcan. The patient has been advised to consult with his/her primary care provider and pharmacist regarding drug-drug interaction of medications currently prescribed. Patient has been prescribed a controlled substance after being counseled on the medication, medication safety, and possible side effects. COLE report has been obtained and reviewed prior to prescription and found to be appropriate. Opioid contract was reviewed and signed by the patient, and that they have agreed to all of the terms set forth by our compliance program. Patient has been instructed to contact the clinic with any concerns before the next appointment. Dr. Small has reviewed this note and agrees with this plan of care. This note was dictated using voice recognition software and make contain errors or omissions. Time In:: 11:10 Time Out:: 11:20 [facility] History I have reviewed the patient's past medical history: Yes Medical History: Reports:: Asthma, Cancer (lymphoma), Chronic Obstructive Pulmonary Disease (COPD), Deep Vein Thrombosis, Depression, Diabetes Mellitus Type 2, Home Oxygen, Hyperlipidemia, Hypertension, Migraine Denies:: Diabetes Mellitus Type 1, Internal Pacemaker, MRSA, Seizures *Have you ever received a pneumonia vaccine?: Yes *Have you received a flu vaccine this season?: Yes Other Medical History: Reports: Cataracts, Chemotherapy. Denies: Blood Transfusion Reaction Laterality Cases: Left: Arthroscopy Knee, Bilateral: Tonsillectomy Other Surgerie
== END ==
PROVIDERS: Visit Provider Clinical Nurse Specialist Family Health
DX: M51.16 Intervertebral disc disorders with radiculopathy, lumbar region (principal)
CPT/HCPCS: 99212; G0463

== ENCOUNTER → 2021-09-20 13:30 | Outpatient (POV) | payer MEDICARE, SELFPAY ==
--- NOTE | 2021-09-20 14:23 | HMH.PAINSOAP ---
[facility] Pain Management SOAP Note Subjective:: This patient is a very pleasant 71-year-old white female who presents today for follow-up. She is currently being treated for degenerative disease of lumbar spine with lumbar radiculopathy. She is currently prescribed cymbalta 30 mg 2 tablets daily, [place] 10 mg 1 tablet p.o. every 4 hours and gabapentin 600 mg 1 tablet p.o. 4 times daily. 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 She denies any adverse effects of medication. She rates her pain today as a 6 out of 10. She is requesting refills on her medications today. Objective:: General: Alert and oriented x3, no acute distress, pleasant and cooperative Lungs: Resps E/U, symmetric chest expansion Eyes: PERRL Musculoskeletal: limited flexion and extension of the lumbar spine secondary to pain. Deep tendon reflexes were normal in bilateral lower extremities. Motor exam was grossly intact in the bilateral lower extremities, antalgic gait noted. Neurological: Speech is clear, exercise science internship equal, no gross sensory deficits Assessment:: Degenerative disc disease of lumbar spine and lumbar radiculopathy Plan:: Rip with the patient that we will refill [place] 10 mg 1 tablet p.o. 4 hours #180 for 1 month supply, gabapentin 600 mg 1 tablet p.o. 4 times daily number 121-month supply with 2 refills, and Cymbalta 30 mg 2 tablets p.o. daily. Jp and projections were reviewed and appropriate. We will follow-up this patient in 1 month for reassessment of her chronic pain symptoms and medication refills via telehealth visit since she has transportation issues to come to the clinic due to age and high Covid risk. [facility] History Medical History: Reports:: Asthma, Cancer (lymphoma), Chronic Obstructive Pulmonary Disease (COPD), Deep Vein Thrombosis, Depression, Diabetes Mellitus Type 2, Home Oxygen, Hyperlipidemia, Hypertension, Migraine Denies:: Diabetes Mellitus Type 1, Internal Pacemaker, MRSA, Seizures *Have you ever received a pneumonia vaccine?: Yes *Have you received a flu vaccine this season?: Yes Other Medical History: Reports: Cataracts, Chemotherapy. Denies: Blood Transfusion Reaction Laterality Cases: Left: Arthroscopy Knee, Bilateral: Tonsillectomy Other Surgeries: Yes: Appendectomy, Cancer Surgery, Cholecystectomy, Colonoscopy, EGD, Hysterectomy-Partial, Plastic Surgery, Other. No: Pacemaker Amputation: No Fractures: Yes - *Social History Smoking Status: Never smoker Tobacco Type: cigarettes # Packs/Day (cigarettes): 0 #Yrs smoked (if former smoker): 20 Alcohol Intake: never Alcohol Intake Frequency:: other Substance Use Type: denies use *Occupational Status:: unemployed Housing: house Household Members: spouse *Travel in the last 8 weeks: None - Psychiatric History Pschychiatric History:: Reports:: Depression Family Hx:: Cancer
[2021-09-20 15:30] VITALS: BP 140/98; PULSE 66; RESP 20; TEMP 37.5; O2SAT 90; BMI 28.3
[2021-09-20 18:19] LABS: Amphetamine/Metha Screen,Urine Negative ng/ml (<1000)
[2021-09-20 18:20] LABS: Barbiturates Screen,Urine Negative ng/ml (<200)
[2021-09-20 18:21] LABS: Benzodiazepines Screen,Urine Negative ng/ml (<200); Cannabinoid Screen,Urine Negative ng/ml (<50)
[2021-09-20 18:22] LABS: Cocaine Screen,Urine Negative ng/ml (<300)
[2021-09-20 18:23] LABS: Methadone Screen,Urine Negative ng/ml (<300)
[2021-09-20 18:24] LABS: Opiate Screen,Urine Positive ng/ml (<300)
[2021-09-20 18:25] LABS: Phencyclidine Screen,Urine Negative ng/ml (<25)
[2021-10-01 23:15] LABS: Codeine Negative (Cutoff=100); Hydrocodone Positive (.); Hydromorphone Positive (.); Morphine Negative (Cutoff=100); Opiates Positive (.)
== END ==
PROVIDERS: Visit Provider Anesthesiology Pain Medicine
DX: M51.16 Intervertebral disc disorders with radiculopathy, lumbar region (principal); Z79.891 Long term (current) use of opiate analgesic
CPT/HCPCS: 80305; 80361; 80365; 99212; G0463; G0480

== ENCOUNTER → 2021-10-22 11:47 | Outpatient (POV) | payer MEDICARE, SELFPAY ==
--- NOTE | 2021-10-22 12:13 | HMH.PAINSOAP ---
[facility] Pain Management SOAP Note Subjective:: Patient is a pleasant 71-year-old female who is here as a telehealth audio for medication refill and follow-up. Patient is currently being treated for degenerative disc disease of lumbar spine with lumbar radiculopathy symptoms. Patient is being managed with gabapentin 600 mg 4 times a day, [place] 10 mg 6 times a day, Cymbalta 30 mg twice a day. Patient denies any side effects from the medications. Patient denies any changes to the location and type of pain. Patient states that this is adequately helping manage their pain. Rates pain as 6 out of 10. [facility] number [id number] with an active morphine equivalent 60. Drug screens have been reviewed and appropriate. Patient has an appointment with cancer center in [place] on October 28, 2021. Review of Systems: General: No recent weight changes, no fever, no sleep disturbances Respiratory: No cough, no shortness of air, no recurring pulmonary infections Cardiovascular/peripheral vascular: No chest pain, no palpitations, no edema, no shortness of breath Gastrointestinal: No new onset incontinence, normal bowel movements reported Genitourinary: No new onset incontinence Musculoskeletal: Low back pain Psychiatric: [Normal mood/affect] Neurological: [Denies weakness in extremities], [denies balance issues] Objective:: General: Alert and oriented x3, pleasant and cooperative Lungs: Patient is able to say complete sentences without dyspnea Neurological: Speech clear Assessment:: Degenerative disc disease of lumbar spine with lumbar radiculopathy symptoms Lymphoma Plan:: We will continue the patient's [place] 10 mg 4 times a day, gabapentin 600 mg 4 times a day, Cymbalta at 30 mg twice a day. We will provide the patient with a month of refills. We would like to see the patient back in 1 month for follow-up and reevaluation of chronic pain syndrome. Patient has been advised of risks of oversedation with the prescribed medication. Narcan has been offered to the patient in the event of oversedation. Patient has been advised that a family member should also be educated regarding administration of Narcan. Patient has been instructed to contact the clinic with any concerns before the next appointment. Dr. Small has reviewed this note and agrees with this plan of care. This note was dictated using voice recognition software and make contain errors or omissions. [facility] History I have reviewed the patient's past medical history: Yes Medical History: Reports:: Asthma, Cancer (lymphoma), Chronic Obstructive Pulmonary Disease (COPD), Deep Vein Thrombosis, Depression, Diabetes Mellitus Type 2, Home Oxygen, Hyperlipidemia, Hypertension, Migraine Denies:: Diabetes Mellitus Type 1, Internal Pacemaker, MRSA, Seizures *Have you ever received a pneumonia vaccine?: Yes *Have you received a flu vaccine this season?: Yes Other Medical History: Reports: Cataracts, Chemotherapy. Denies: Blood Transfusion Reaction Laterality Cases: Left: Arthroscopy Knee, Bilateral: Tonsillectomy Other Surgeries: Yes: Appendectomy, Cancer Surgery, Cholecystectomy, Colonoscopy, EGD, Hysterectomy-Partial, Plastic Surgery, Other. No: Pacemaker Amputation: No Fractures: Yes - *Social History Smoking Status: Never smoker Tobacco Type: cigarettes # Packs/Day (cigarettes): 0 #Yrs smoked (if former smoker): 20 Alcohol Intake: never Alcohol Intake Frequency:: other Substance Use Type: denies use *Occupational Status:: other Housing: house Household Members: spouse *Travel in the last 8 weeks: None - Psychiatric History Pschychiatric History:: Reports:: Depression Family Hx:: Cancer
== END ==
PROVIDERS: PCP Family Medicine; Visit Provider Student in an Organized Health Care Education/Training Program
DX: M51.16 Intervertebral disc disorders with radiculopathy, lumbar region (principal); C82.90 Follicular lymphoma, unspecified, unspecified site
CPT/HCPCS: 93225; 93226; 99441; G2012

== ENCOUNTER → 2021-11-22 13:36 | Outpatient (POV) | payer MEDICARE, SELFPAY ==
--- NOTE | 2021-11-22 14:28 | HMH.PAINSOAP ---
[facility] Pain Management SOAP Note Subjective:: Patient is a pleasant 71-year-old female who is here for medication refill and follow-up. Patient is currently being treated for degenerative disc disease of lumbar spine with lumbar radiculopathy symptoms, history of lymphoma. Patient is being managed with gabapentin 600 mg 4 times a day, [place] 10 mg 6 times a day, Cymbalta 30 mg twice a day. Patient denies any side effects from the medications. Patient denies any changes to the location and type of pain. Patient states that this is adequately helping manage their pain. Rates pain as 5 out of 10. [facility] number [id number] with an active morphine equivalent 60. Drug screens have been reviewed and appropriate. Patient is also prescribed Fioricet twice a day by Dr. Tello. She recently had an appointment at the cancer center in [place] on October 28, 2021. She says that it went well and she does not need to go back there for another year. Review of Systems: General: No recent weight changes, no fever, no sleep disturbances Respiratory: No cough, no shortness of air, no recurring pulmonary infections Cardiovascular/peripheral vascular: No chest pain, no palpitations, no edema, no shortness of breath Gastrointestinal: No new onset incontinence, normal bowel movements reported Genitourinary: No new onset incontinence Musculoskeletal: Low back pain Psychiatric: [Normal mood/affect] Neurological: [Denies weakness in extremities], [denies balance issues] Objective:: Physical Exam: General: Alert and oriented x3, no acute distress, pleasant and cooperative Lungs: Respirations even and unlabored, symmetrical chest expansion Eyes: PERRL Musculoskeletal: Flexion and extension of lumbar [spine] somewhat guarded secondary to pain, [antalgic gait noted] Neurological: Speech clear, no gross sensory deficit Assessment:: Degenerative disc disease of lumbar spine with lumbar radiculopathy symptoms, lymphoma Plan:: We will continue the patient's [place] 10 mg 4 times a day, gabapentin 600 mg 4 times a day, Cymbalta 30 mg twice a day. We will provide the patient with [] of refills. We would like to see the patient back in 1 month for follow-up and reevaluation of chronic pain syndrome. Patient has been advised of risks of oversedation with the prescribed medication. Narcan has been offered to the patient in the event of oversedation. Patient has been advised that a family member should also be educated regarding administration of Narcan. Patient has been instructed to contact the clinic with any concerns before the next appointment. Dr. Small has reviewed this note and agrees with this plan of care. This note was dictated using voice recognition software and make contain errors or omissions. [facility] History Medical History: Reports:: Asthma, Cancer (lymphoma), Chronic Obstructive Pulmonary Disease (COPD), Deep Vein Thrombosis, Depression, Diabetes Mellitus Type 2, Home Oxygen, Hyperlipidemia, Hypertension, Migraine Denies:: Diabetes Mellitus Type 1, Internal Pacemaker, MRSA, Seizures *Have you ever received a pneumonia vaccine?: Yes *Have you received a flu vaccine this season?: Yes Other Medical History: Reports: Cataracts, Chemotherapy. Denies: Blood Transfusion Reaction Laterality Cases: Left: Arthroscopy Knee, Bilateral: Tonsillectomy Other Surgeries: Yes: Appendectomy, Cancer Surgery, Cholecystectomy, Colonoscopy, EGD, Hysterectomy-Partial, Plastic Surgery, Other. No: Pacemaker Amputation: No Fractures: Yes - *Social History Smoking Status: Never smoker Tobacco Type: cigarettes # Packs/Day (cigarettes): 0 #Yrs smoked (if former smoker): 20 Alcohol Intake: never Alcohol Intake Frequency:: other Substance Use Type: denies use *Occupational Status:: other Housing: house Household Members: spouse *Travel in the last 8 weeks: Inside the [place] - Psychiatric History Pschychiatric History:: Reports:: Depression Family Hx:: Cancer
[2021-11-22 14:32] VITALS: BP 188/85; PULSE 87; RESP 18; TEMP 36.4; O2SAT 91; BMI 27.9
== END ==
PROVIDERS: Visit Provider Student in an Organized Health Care Education/Training Program
DX: M51.16 Intervertebral disc disorders with radiculopathy, lumbar region (principal); C82.90 Follicular lymphoma, unspecified, unspecified site
CPT/HCPCS: 99212; G0463

== ENCOUNTER → 2021-12-25 13:12 | Outpatient (POV) | payer MEDICARE, SELFPAY ==
[2021-12-25 13:18] VITALS: BP 150/75; PULSE 75; RESP 18; TEMP 35.6; O2SAT 90; BMI 26.6
--- NOTE | 2021-12-25 14:12 | HMH.PAINSOAP ---
[facility] Pain Management SOAP Note Subjective:: Patient is a pleasant 71-year-old female who is here for medication refill and follow-up. Patient is currently being treated for degenerative disease of lumbar spine with lumbar radiculopathy symptoms, history of lymphoma. Patient is being managed with gabapentin 600 mg 4 times a day, [place] 10 mg 6 times a day, Cymbalta 30 mg twice a day. Patient denies any side effects from the medications. Patient denies any changes to the location and type of pain. Patient states that this is adequately helping manage their pain. Patient is also prescribed Fioricet twice a day by Dr. Tello. Rates pain as 4 out of 10. [facility] number [id number] with an active morphine equivalent 0. Drug screens have been reviewed and appropriate. Review of Systems: General: No recent weight changes, no fever, no sleep disturbances Respiratory: No cough, no shortness of air, no recurring pulmonary infections Cardiovascular/peripheral vascular: No chest pain, no palpitations, no edema, no shortness of breath Gastrointestinal: No new onset incontinence, normal bowel movements reported Genitourinary: No new onset incontinence Musculoskeletal: Low back pain Psychiatric: [Normal mood/affect] Neurological: [Denies weakness in extremities], [denies balance issues] Objective:: Physical Exam: General: Alert and oriented x3, no acute distress, pleasant and cooperative Lungs: Respirations even and unlabored, symmetrical chest expansion Eyes: PERRL Musculoskeletal: Flexion and extension of lumbar [spine] somewhat guarded secondary to pain, [antalgic gait noted] Neurological: Speech clear, no gross sensory deficit Assessment:: Degenerative disease of lumbar spine with lumbar radiculopathy symptoms, history of lymphoma Plan:: We will continue the patient's gabapentin 600 mg 4 times a day, [place] 10 mg 6 times a day, Cymbalta 30 mg twice a day. We will provide the patient with 1 month of refills. We would like to see the patient back in 1 month for follow-up and reevaluation of chronic pain syndrome. Patient has been advised of risks of oversedation with the prescribed medication. Narcan has been offered to the patient in the event of oversedation. Patient has been advised that a family member should also be educated regarding administration of Narcan. Patient has been instructed to contact the clinic with any concerns before the next appointment. Dr. Bux has reviewed this note and agrees with this plan of care. This note was dictated using voice recognition software and make contain errors or omissions. [facility] History Medical History: Reports:: Asthma, Cancer (lymphoma), Chronic Obstructive Pulmonary Disease (COPD), Deep Vein Thrombosis, Depression, Diabetes Mellitus Type 2, Home Oxygen, Hyperlipidemia, Hypertension, Migraine Denies:: Diabetes Mellitus Type 1, Internal Pacemaker, MRSA, Seizures *Have you ever received a pneumonia vaccine?: Yes *Have you received a flu vaccine this season?: Yes Other Medical History: Reports: Cataracts, Chemotherapy. Denies: Blood Transfusion Reaction Laterality Cases: Left: Arthroscopy Knee, Bilateral: Tonsillectomy Other Surgeries: Yes: Appendectomy, Cancer Surgery, Cholecystectomy, Colonoscopy, EGD, Hysterectomy-Partial, Plastic Surgery, Other. No: Pacemaker Amputation: No Fractures: Yes - *Social History Smoking Status: Never smoker Tobacco Type: cigarettes # Packs/Day (cigarettes): 0 #Yrs smoked (if former smoker): 20 Alcohol Intake: never Alcohol Intake Frequency:: other Substance Use Type: denies use *Occupational Status:: retired Housing: house Household Members: spouse *Travel in the last 8 weeks: None - Psychiatric History Pschychiatric History:: Reports:: Depression Family Hx:: Cancer
== END ==
PROVIDERS: Visit Provider Student in an Organized Health Care Education/Training Program
DX: M51.16 Intervertebral disc disorders with radiculopathy, lumbar region (principal); Z85.72 Personal history of non-Hodgkin lymphomas
CPT/HCPCS: 99212; G0463

== ENCOUNTER → 2022-01-22 15:05 | Outpatient (POV) | payer MEDICARE, SELFPAY ==
[2022-01-22 15:14] VITALS: BP 146/92; PULSE 87; RESP 20; TEMP 36.4; O2SAT 90; BMI 29.1
--- NOTE | 2022-01-22 15:20 | HMH.PAINSOAP ---
[facility] Pain Management SOAP Note Subjective:: Is a pleasant 71-year-old female who is here for medication refill and follow-up. Patient is currently being treated for degenerative disc disease of lumbar spine with lumbar radiculopathy symptoms, history of lymphoma. Patient rates her pain a 3 out of 10 today. She states it is more in her back as a dull ache. She is being managed with gabapentin 600 mg 4 times a day, [place] 10 mg 6 times a day and Cymbalta 30 mg twice a day. Patient denies any side effects from the medications. Patient denies any changes to the location and type of pain. She states this medication is adequately managing her pain. Patient's Jp is [id number]. It has been reviewed and is appropriate. Review of Systems: General: No recent weight changes, no fever, no sleep disturbances Respiratory: No cough, no shortness of air, no recurring pulmonary infections Cardiovascular/peripheral vascular: No chest pain, no palpitations, no edema, no shortness of breath Gastrointestinal: No new onset incontinence, normal bowel movements reported Genitourinary: No new onset incontinence Musculoskeletal: low back pain Psychiatric: [Normal mood/affect] Neurological: [Denies weakness in extremities], [denies balance issues] Objective:: Physical Exam: General: Alert and oriented x3, no acute distress, pleasant and cooperative Lungs: Respirations even and unlabored, symmetrical chest expansion Eyes: PERRL Musculoskeletal: Flexion and extension of lumbar [spine] somewhat guarded secondary to pain, [antalgic gait noted] Neurological: Speech clear, no gross sensory deficit Assessment:: Degenerative disc disease of lumbar spine with lumbar radiculopathy symptoms, history of lymphoma Plan:: We will continue the patient's [place] 10 mg 4 times a day and Cymbalta 30 mg twice a day. Patient states she is okay on her gabapentin refill at this time. We will provide patient with 1 month of refills. Patient will return to clinic in 1 month for medication refill and follow-up. Patient has been advised of risks of oversedation with the prescribed medication. Narcan has been offered to the patient in the event of oversedation. Patient has been advised that a family member should also be educated regarding administration of Narcan. Patient has been instructed to contact the clinic with any concerns before the next appointment. Dr. Small has reviewed this note and agrees with this plan of care. This note was dictated using voice recognition software and make contain errors or omissions. [facility] History I have reviewed the patient's past medical history: Yes Medical History: Reports:: Asthma, Cancer (lymphoma), Chronic Obstructive Pulmonary Disease (COPD), Deep Vein Thrombosis, Depression, Diabetes Mellitus Type 2, Home Oxygen, Hyperlipidemia, Hypertension, Migraine Denies:: Diabetes Mellitus Type 1, Internal Pacemaker, MRSA, Seizures *Have you ever received a pneumonia vaccine?: Yes *Have you received a flu vaccine this season?: No Other Medical History: Reports: Cataracts, Chemotherapy. Denies: Blood Transfusion Reaction Laterality Cases: Left: Arthroscopy Knee, Bilateral: Tonsillectomy Other Surgeries: Yes: Appendectomy, Cancer Surgery, Cholecystectomy, Colonoscopy, EGD, Hysterectomy-Partial, Plastic Surgery, Other. No: Pacemaker Amputation: No Fractures: Yes - *Social History Smoking Status: Never smoker Tobacco Type: cigarettes # Packs/Day (cigarettes): 0 #Yrs smoked (if former smoker): 20 Alcohol Intake: never Alcohol Intake Frequency:: other Substance Use Type: denies use *Occupational Status:: other Housing: house Household Members: spouse *Travel in the last 8 weeks: Inside the [place] - Psychiatric History Pschychiatric History:: Reports:: Depression Family Hx:: Cancer
[2022-01-22 20:07] LABS: Amphetamine/Metha Screen,Urine Negative ng/ml (<1000)
[2022-01-22 20:08] LABS: Barbiturates Screen,Urine Negative ng/ml (<200); Benzodiazepines Screen,Urine Negative ng/ml (<200)
[2022-01-22 20:09] LABS: Cannabinoid Screen,Urine Negative ng/ml (<50); Cocaine Screen,Urine Negative ng/ml (<300)
[2022-01-22 20:10] LABS: Methadone Screen,Urine Negative ng/ml (<300)
[2022-01-22 20:11] LABS: Opiate Screen,Urine Positive ng/ml (<300); Phencyclidine Screen,Urine Negative ng/ml (<25)
[2022-01-29 15:11] LABS: Codeine Negative (Cutoff=100); Hydrocodone Positive (.); Hydromorphone Positive (.); Morphine Negative (Cutoff=100); Opiates Positive (.)
== END ==
PROVIDERS: Visit Provider Student in an Organized Health Care Education/Training Program
DX: M51.16 Intervertebral disc disorders with radiculopathy, lumbar region (principal); Z79.891 Long term (current) use of opiate analgesic; Z85.72 Personal history of non-Hodgkin lymphomas
CPT/HCPCS: 80305; 80361; 80365; 99212; G0463; G0480